=== PATIENT | female | born 1935 | race Caucasian/White ===

== ENCOUNTER 2020-08-13 | Outpatient (REF) | payer MEDICARE, SELFPAY ==
[2020-08-13 10:54] LABS: MANUAL DIFF FLAG NO
[2020-08-13 10:57] LABS: Basophils Percent Auto 0.8 % (0-2); Eosinophils Absolute Auto 0.1 X10*3/uL (0.0-0.4); Eosinophils Percent Auto 2.9 % (0-4); Hematocrit 41.4 % (37-47); Hemoglobin 14.5 g/dl (12.0-16.0); Imm Gran Abs Auto 0.01 X10*3/uL (0.00-0.03); Imm Gran Pct Auto 0.2 % (0.0-0.4); Lymphocytes Absolute Auto 2.1 X10*3/uL (1.2-4.9); Mean Corpuscular Hemoglobin 33.6 pg (27.0-33.0); Mean Corpuscular Volume 95.8 fL (80-98); Monocytes Absolute Auto 0.6 X10*3/uL (0.1-1.2); Monocytes Percent Auto 12.3 % (2-11); Neutrophils Percent Auto 40.8 % (45-73); Platelet Count 168 X10*3/uL (160-400); Red Blood Count 4.32 X10*6/uL (4.20-5.50); Red Cell Distribution Width 11.8 % (11.0-16.0); White Blood Count 4.9 X10*3/uL (4.8-10.8)
[2020-08-13 11:23] LABS: Alanine Aminotransferase 15 U/L (0-31); Albumin Level 4.3 g/dL (3.5-5.0); Alkaline Phosphatase 89 U/L (39-117); Anion Gap 13 (12-20); Aspartate Amino Transferase 24 U/L (5-31); Bilirubin Total 1.4 mg/dL (0.0-1.0); Blood Urea Nitrogen 15 mg/dL (9-16); Carbon Dioxide 24 mmol/L (22-29); Chloride 105 mmol/L (96-108); Cholesterol 179 mg/dL; Estimated Glomerular Filt Rate > 60; Glucose Fasting 92 mg/dL (60-99); HDL Cholesterol 40 mg/dL; LDL Cholesterol Calculated 117 mg/dl; Sodium 138 mmol/L (135-145); Triglycerides 111 mg/dL
[2020-08-13 11:40] LABS: Free T4 (Free Thyroxine) 1.42 ng/dL (0.71-1.85); Thyroid Stimulating Hormone 0.01 uIU/mL (0.32-4.0)
== END 2020-08-13 00:01 | disposition home or self-care (01) ==
LOC: HO.LHD
PROVIDERS: Visit Provider Internal Medicine Medical Oncology
DX: E03.9 Hypothyroidism, unspecified (principal); I10 Essential (primary) hypertension; E78.5 Hyperlipidemia, unspecified
CPT/HCPCS: 36415; 80053; 80061; 84439; 84443; 85025

== ENCOUNTER 2020-09-29 16:48 | Emergency (ER) | payer MEDICARE, SELFPAY ==
[2020-09-29 17:27] VITALS: BP 207/100; PULSE 75; RESP 18; TEMP 37.1; O2SAT 97; BMI 22.6
--- NOTE | 2020-09-29 18:04 | CT_ITS ---
EXAMINATION: CT HEAD WITHOUT IV CONTRAST CT CERVICAL SPINE WITHOUT IV CONTRAST INDICATION: Fall. Pain in the back of the head. COMPARISON: None available. TECHNIQUE: Multidetector CT acquisitions of the head and cervical spine were obtained without IV contrast. Multiplanar reformats were acquired and utilized for image interpretation. This CT examination was performed using dose optimization techniques as appropriate, variously including the following: *Automated exposure control *Adjustment of mA and/or kV according to patient size (this includes techniques or standardized protocols for targeted exams where dose is matched to indication/reason for exam; i.e. extremities or head) *Use of iterative reconstruction technique FINDINGS: HEAD: Global cerebral volume loss and chronic microangiopathy. Global cerebellar volume loss. There is no intracranial hemorrhage, hydrocephalus, extra-axial surface collection, midline shift, or other herniation pattern. 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 Bland to white matter differentiation is diffusely maintained without evidence of an evolved acute territorial infarct. The basilar cisterns are preserved. No acute osseous abnormality. The paranasal sinuses and the mastoid air cells are well aerated. Posterior scalp swelling/hematoma. CERVICAL SPINE: Significant leftward convex scoliotic curvature of the cervical spine. Near-complete fusion of the anterior posterior elements at C3-C4 and anterior subluxation of C4 on C5. No definite acute fractures no acute subluxations. Severe disc volume loss at C4-C5, C5-C6, C6-C7, and C7-T1. There is anterior subluxation of C7 on T1. Advanced multilevel hypertrophic facet arthropathy. Hypertrophic degenerative changes at the atlantodental interval. 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 CT/CT cervical spine wo con IMPRESSION: 1. No acute intracranial abnormality. Posterior scalp hematoma. 2. No acute osseous abnormality within the cervical spine. Advanced cervical spondylosis, leftward convex cervical scoliosis, as well as significant degenerative appearing anterior subluxation of C4 on C5 and C7 on T1. 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
--- NOTE | 2020-09-29 18:06 | ED_ITS ---
HPI - Fall General Chief Complaint: Fall Stated Complaint: fall Time Seen by Provider: 09/29/20 17:25 Source: patient Mode of arrival: ambulatory Limitations: no limitations History of Present Illness HPI Narrative: Patient comes to emergency room after falling. Patient states she was at her house, she was in a ladder taking off the [employer] ornaments, stepped backwards and landed on her back, then her head. Patient states she did not lose consciousness, patient is not on blood thinners. Patient denies neck pain, no lacerations in the scalp. MD complaint: fall Related Data Allergies Allergy/AdvReac Type Severity Reaction Status Date / Time Sulfa (Sulfonamide Allergy Mild NAUSEA & Verified 09/29/20 17:26 Antibiotics) VOMITING Review of Systems Review of Systems: Constitutional : No Weight loss, No Fever, No Chills, No Night Sweats, No Fatigue, No Malaise ENT/Mouth : No Hearing loss, No Ear Pain, No Nasal Congestion, No Sinus Pain, No Hoarseness, No sore throat, No Rhinorrhea, No Swallowing Difficulty Eyes: No Eye Pain, No Swelling, No Redness, No Foreign Body, No Discharge, No Vision Changes Cardiovascular : No Chest Pain, No SOB, No Dyspnea on Exertion, No Orthopnea, No Edema, No Palpitations Respiratory : No Cough, No Sputum, No Wheezing, No Smoke Exposure, No Dyspnea Gastrointestinal : No Nausea, No Vomiting, No Diarrhea, No Constipation, No abdominal Pain, No Hematochezia, No Melena Genitourinary : no irregular bleeding, No Dysuria, No Urinary Frequency, No Hematuria, No Urinary Incontinence, No Urgency, No Flank Pain, No Urinary Flow Changes, No Hesitancy Musculoskeletal : No joint pain, No Myalgias, No Joint Swelling Skin : No Skin Lesions, No rash, ecchymosis in the scalp in the posterior aspect Neuro : No Weakness, No Numbness, No Paresthesias, No Loss of Consciousness, No Dizziness, No Headache Psych : No Anxiety/Panic, No Depression, No SI/HI/AH/VH, No Social Issues, Heme/Lymph: No Bruising, No Bleeding,No Lymphadenopathy Endocrine : No Polyuria, No Polydipsia, No Temperature Intolerance [facility] Past Medical History Medical History (Updated 09/29/20 @ 19:34 by Tania Mclaughlin MD) Hypertension Hypothyroidism Psoriasis Social History Social History Advance Directives: No Advance Directives Information Provided: No Physical Exam Vital Signs: Vital Signs: Last Vital Signs Temp 98.8 F 09/29/20 17:27 Pulse 75 09/29/20 17:27 Resp 18 09/29/20 17:27 BP 207/100 H 09/29/20 17:27 Pulse Ox 97 09/29/20 17:27 Body Mass Index 22.6 Appearance: Alert. Oriented X3. No acute distress. Eyes: Pupils equal, round and reactive to light. ENT: Pharynx normal. Neck: Normal inspection. Neck supple. No lymph nodes noted. No crepitus, no step palpable step-offs, no C-spine tenderness, normal range of motion CVS: Normal heart rate and rhythm. Pulses normal. Normal S1 and S2 Respiratory: No respiratory distress. Breath sounds normal. No Wheezing. No rales Abdomen: Soft and nontender. No rigidity. No distention. good BS x4 Skin: Skin warm and dry. Normal skin color. Small ecchymosis in occipital region, no lacerations, no active bleeding Extremities: No lower extremity edema. No lower extremity edema. No Lacerations. No Rash Neuro: Oriented X 3. No motor deficit. No sensory deficit. Moving all extermities. No slurred speech. Course Course Course Narrative: I discussed the CT scan with the patient, no acute findings. Patient ready for discharge. Patient denies headache, -she has steady gait MDM - Fall Imaging Data CT scan - head: Radiologist's impression: Significant leftward convex scoliotic curvature of the cervical spine. Near-complete fusion of the anterior posterior elements at C3-C4 and anterior subluxation of C4 on C5. No definite acute fractures no acute subluxations. Severe disc volume loss at C4-C5, C5-C6, C6-C7, and C7-T1. There is anterior subluxation of C7 on T1. Advanced multilevel hypertrophic facet arthropathy. Hypertrophic degenerative changes at the atlantodental interval. 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 CT/CT cervical spine wo con IMPRESSION: 1. No acute intracranial abnormality. Posterior scalp hematoma. 2. No acute osseous abnormality within the cervical spine. Advanced cervical spondylosis, leftward convex cervical scoliosis, as well as significant degenerative appearing anterior subluxation of C4 on C5 and C7 on T1. 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 Discharge Plan Discharge Clinical Impression: Fall Qualifiers: Encounter type: initial encounter Qualified Code(s): W19.XXXA - Unspecified fall, initial encounter Contusion Qualifiers: Encounter type: initial encounter Contusion area: head Laterality: unspecified laterality Patient Disposition: Home, Self-Care Instructions: Head Injury (ED) Additional Instructions: Please follow-up with your primary care physician tomorrow. If you have any worsening or new symptoms, please return to the emergency room or call 911
--- NOTE | 2020-09-29 18:32 | PC.NURSE ---
pt back from ct pt remains caox4, in no distress.
--- NOTE | 2020-09-29 18:50 | PC.NURSE ---
valeria [phone] call when ready
[2020-09-29 19:53] VITALS: BP 178/104; PULSE 69; RESP 16; O2SAT 95
== END 2020-09-29 20:20 | disposition home or self-care (01) ==
PROVIDERS: Emergency Provider Emergency Medicine; PCP Internal Medicine Medical Oncology
DX: S00.93XA Contusion of unspecified part of head, initial encounter (principal); W11.XXXA Fall on and from ladder, initial encounter; I10 Essential (primary) hypertension; Y93.89 Activity, other specified; Y92.019 Unspecified place in single-family (private) house as the place of occurrence of the external cause; Y99.9 Unspecified external cause status
CPT/HCPCS: 70450; 72125; 99284

== ENCOUNTER 2020-12-17 07:14 | Outpatient (REF) | payer MEDICARE, SELFPAY ==
[2020-12-17 12:50] LABS: Alanine Aminotransferase 9 U/L (0-31); Albumin Level 4.4 g/dL (3.5-5.0); Alkaline Phosphatase 103 U/L (39-117); Anion Gap 16 (12-20); Aspartate Amino Transferase 18 U/L (5-31); Bilirubin Total 1.5 mg/dL (0.0-1.0); Blood Urea Nitrogen 10 mg/dL (9-16); Calcium 9.1 mg/dL (8.4-10.2); Carbon Dioxide 24 mmol/L (22-29); Chloride 106 mmol/L (96-108); Estimated Glomerular Filt Rate > 60; Glucose Fasting 117 mg/dL (60-99); Potassium 4.2 mmol/L (3.3-5.1); Sodium 142 mmol/L (135-145)
== END 2020-12-17 07:15 | disposition home or self-care (01) ==
LOC: HO.LHD 07:14
PROVIDERS: Visit Provider Internal Medicine Medical Oncology
DX: E78.5 Hyperlipidemia, unspecified (principal); E03.9 Hypothyroidism, unspecified; I10 Essential (primary) hypertension
CPT/HCPCS: 36415; 80053

== ENCOUNTER 2021-03-26 19:38 | Inpatient (IN) | payer MEDICARE, SELFPAY ==
--- NOTE | ~2021-03-26 | US_ITS ---
EXAMINATION: US ABDOMEN LIMITED CLINICAL INFORMATION: gb ?cholecystitis. COMPARISON: None TECHNIQUE: Real-time imaging of the right upper quadrant abdominal viscera. FINDINGS: LIVER: Normal. The liver is normal in size. The liver contour is normal. Parenchymal echogenicity is normal. No focal hepatic lesion. There is no intrahepatic biliary duct dilatation seen. GALLBLADDER: Dependent, echogenic, shadowing stones are present within the gallbladder. A small volume of sludge is present. The gallbladder is physiologically distended without evidence wall thickening or pericholecystic fluid. COMMON BILE DUCT: Normal in caliber measuring 0.6 cm in diameter. FREE FLUID: None. US/US abdomen limited IMPRESSION: Cholelithiasis without evidence of cholecystitis
--- NOTE | ~2021-03-26 | CT_ITS ---
EXAMINATION: CT ABDOMEN AND PELVIS WITHOUT CONTRAST CLINICAL INFORMATION: Left lower quadrant pain. Rule out diverticulitis. COMPARISON: None TECHNIQUE: Multidetector volumetric imaging was performed from the superior aspect of the liver through the pubic symphysis. Sagittal and coronal reformatted images were obtained on the technologist's workstation. This CT examination was performed using dose optimization techniques as appropriate, variously including the following: *Automated exposure control *Adjustment of mA and/or kV according to patient size (this includes techniques or standardized protocols for targeted exams where dose is matched to indication/reason for exam; i.e. extremities or head) *Use of iterative reconstruction technique DLP: 421 mGy-cm FINDINGS: LUNG BASES: There is a large esophageal hernia or intrathoracic stomach. Transverse colon and some of the pancreas also extend through the widened esophageal hiatus. The lung bases are clear. LIVER, GALLBLADDER, AND BILIARY TREE: The liver is normal in size, shape, and attenuation. No focal hepatic lesion or biliary ductal dilatation is present. There are gallstones in the gallbladder. PANCREAS: Unremarkable. SPLEEN: Unremarkable. ADRENAL GLANDS: Unremarkable. KIDNEYS AND URETERS: The kidneys are normal in size, shape, and attenuation. No hydronephrosis, hydroureter, or calculi seen. No perinephric stranding. BLADDER: Unremarkable. GASTROINTESTINAL TRACT: There is diverticulosis of the colon. No evidence of diverticulitis is seen. The appendix is not identified. Large esophageal hernia or intrathoracic stomach. Transverse colon extending through widened esophageal hiatus. No evidence of obstruction. ABDOMINAL WALL: There are small bilateral inguinal hernias containing fat. LYMPH NODES: Normal. VASCULAR: There is evidence of atherosclerotic disease. No aneurysm is seen. PELVIC VISCERA: Unremarkable. OSSEOUS STRUCTURES: There is scoliosis of the lumbar spine convex to the right. There is a mild L1 vertebral body compression fracture versus Schmorl's node. This may be an old mild T11 vertebral body compression fracture as well. There is joint space narrowing at the hip joints. CT/CT abdomen pelvis wo con IMPRESSION: Diverticulosis. No evidence of diverticulitis. Large esophageal hernia or intrathoracic stomach. The pancreas and transverse colon extend through the widened esophageal hiatus. There is no evidence of obstruction. Gallstones.
[2021-03-26 20:19] VITALS: BP 174/82; PULSE 67; RESP 12; TEMP 37; O2SAT 97; BMI 20.9
[2021-03-26 21:38] LABS: MANUAL DIFF FLAG NO
[2021-03-26 21:39] LABS: Basophils Percent Auto 0.5 % (0-2); Eosinophils Percent Auto 0.3 % (0-4); Hematocrit 40.5 % (37-47); Hemoglobin 14.2 g/dl (12.0-16.0); Imm Gran Abs Auto 0.01 X10*3/uL (0.00-0.03); Imm Gran Pct Auto 0.2 % (0.0-0.4); Lymphocytes Absolute Auto 0.8 X10*3/uL (1.2-4.9); Lymphocytes Percent Auto 12.4 % (20-40); Mean Corpuscular HGB Conc 35.1 g/dl (31.0-35.0); Mean Corpuscular Hemoglobin 33.5 pg (27.0-33.0); Mean Corpuscular Volume 95.5 fL (80-98); Mean Platelet Volume 8.3 fL (9.4-12.3); Monocytes Absolute Auto 0.5 X10*3/uL (0.1-1.2); Monocytes Percent Auto 8.3 % (2-11); Neutrophils Absolute Auto 4.9 X10*3/uL (2.0-8.3); Neutrophils Percent Auto 78.3 % (45-73); Platelet Count 160 X10*3/uL (160-400); Red Blood Count 4.24 X10*6/uL (4.20-5.50); Red Cell Distribution Width 12.3 % (11.0-16.0); White Blood Count 6.3 X10*3/uL (4.8-10.8)
[2021-03-26 21:52] VITALS: BP 132/67; PULSE 78; RESP 16; TEMP 36.7; O2SAT 98
--- NOTE | 2021-03-26 22:01 | ED.ABDPAIN ---
HPI - Abdominal Pain General Chief Complaint: Abdominal Pain Stated Complaint: Abdominal pain Time Seen by Provider: 03/26/21 22:00 Source: patient and family Mode of arrival: ambulatory History of Present Illness HPI narrative: patient brought by her son with no significant abdominal pain in the past came here for lower abdominal pain for last 2 days started yesterday evening got worse today now she denies any pain slight nauseated did not throw up now feel back to normal slight discomfort when she urinates no hematuria no back pain no fever no chills no abdominal distension Related Data Allergies Allergy/AdvReac Type Severity Reaction Status Date / Time Sulfa (Sulfonamide Allergy Mild NAUSEA & Verified 09/29/20 17:26 Antibiotics) VOMITING Review of Systems Review of Systems Yes all other systems are reviewed and are negative Physical Exam Vital Signs: Vital Signs: Last Vital Signs Temp 98.0 F 03/26/21 21:52 Pulse 66 03/27/21 00:15 Resp 18 03/27/21 00:15 BP 142/72 H 03/27/21 00:15 Pulse Ox 96 03/27/21 00:15 Body Mass Index 20.9 Appearance: Alert. Oriented X3. No acute distress. thin built patient Eyes: PERRLA, No Nystagmus ENT: Pharynx normal. Oral Mucosa moist Neck: Normal inspection. Neck supple. CVS: Normal heart rate and rhythm. Pulses normal. Respiratory: No respiratory distress. Equal air entry bilateral, no wheezing/rales/rhonchi Abdomen: Soft , mild deep tenderness left lower quadrant no rebound tenderness or guarding no right upper quadrant tenderness, Bowel sounds are present, no mass palpable, no CVA tenderness Skin: Skin warm and dry. Normal skin color. Normal skin turgor. Extremities: No lower extremity edema. No calf tenderness Neuro: Oriented X 3. No motor deficit. No sensory deficit. MDM - Abdominal Pain MDM Narrative Medical decision making narrative: patient with left lower quadrant pain workup showed diverticulosis but no diverticulitis denies any right upper quadrant pain also on examination there is no tenderness in the right upper quadrant patient has UTI in the urine labs showed elevated LFTs etiology is not very clear ultrasound is negative for cholecystitis or CBD stone plan is to admit for elevated liver function test will get hepatitis profile check Tylenol level patient denied use of Tylenol Lab Data Attestation: I reviewed the patient's lab results. Result diagrams: 03/26/21 21:34 03/26/21 21:34 Labs: Lab Results 03/26/21 03/26/21 03/26/21 Range/Units 21:34 21:34 23:30 WBC 6.3 (4.8-10.8) X10*3/uL RBC 4.24 (4.20-5.50) X10*6/uL Hgb 14.2 (12.0-16.0) g/dl Hct 40.5 (37-47) % MCV 95.5 (80-98) fL MCH 33.5 H (27.0-33.0) pg MCHC 35.1 H (31.0-35.0) g/dl RDW 12.3 (11.0-16.0) % Plt Count 160 (160-400) X10*3/uL MPV 8.3 L (9.4-12.3) fL Immature Gran % (Auto) 0.2 (0.0-0.4) % Neut % (Auto) 78.3 H (45-73) % Lymph % (Auto) 12.4 L (20-40) % [place] % (Auto) 8.3 (2-11) % Eos % (Auto) 0.3 (0-4) % Baso % (Auto) 0.5 (0-2) % Lymph # (Auto) 0.8 L (1.2-4.9) X10*3/uL [place] # (Auto) 0.5 (0.1-1.2) X10*3/uL Eos # (Auto) 0.0 (0.0-0.4) X10*3/uL Baso # (Auto) 0.0 (0.0-0.2) X10*3/uL Abs Immat Gran (auto) 0.01 (0.00-0.03) X10*3/uL Absolute Neuts (auto) 4.9 (2.0-8.3) X10*3/uL Absolute Nucleated RBC 0.000 (0.0-0.012) X10*3/uL Nucleated RBC % (auto) 0.0 (0.0-0.2) /100WBC Sodium 140 (135-145) mmol/L Potassium 4.1 (3.3-5.1) mmol/L Chloride 108 (96-108) mmol/L Carbon Dioxide 21 L (22-29) mmol/L Anion Gap 15 (12-20) BUN 14 (9-16) mg/dL Creatinine 0.88 (0.5-1.4) mg/dL Estim Creat Clear Calc 37.6 Estimated GFR > 60 Random Glucose 156 H (60-115) mg/dL Calcium 9.2 (8.4-10.2) mg/dL Total Bilirubin 2.8 H (0.0-1.0) mg/dL AST 405 H (5-31) U/L ALT 130 H (0-31) U/L Alkaline Phosphatase 154 H D (39-117) U/L Total Protein 6.9 (6.5-8.0) g/dL Albumin 4.1 (3.5-5.0) g/dL Lipase 27 (8-78) U/L Urine Color DARK YELLOW Urine Appearance HAZY Urine pH 7.0 (5.0-8.0) Ur Specific [place] 1.020 (1.005-1.025) Urine Protein TRACE (NEG-TRACE) MG/DL Urine Glucose (UA) NEG (NEG) MG/DL Urine Ketones NEG (NEG) MG/DL Urine Blood TRACE (NEG) Urine Nitrite NEG (NEG) Ur Leukocyte Esterase 3+ H (NEG) Urine RBC 1-4 (0) /HPF Urine WBC 50-75 H (0-4) /HPF Ur Squamous Epith Cells TRACE /LPF Urine Bacteria 3+ /LPF PMFSH Past Medical History Medical History Hypertension Hypothyroidism Psoriasis Social History Social History Alcohol intake: never Patient Tobacco Use Status: Never used Tobacco Use of substances other than those prescribed or required for medical reasons: No Advance Directives: No Advance Directives Information Provided: Yes
[2021-03-26 22:14] LABS: Alanine Aminotransferase 130 U/L (0-31); Albumin Level 4.1 g/dL (3.5-5.0); Alkaline Phosphatase 154 U/L (39-117); Anion Gap 15 (12-20); Aspartate Amino Transferase 405 U/L (5-31); Bilirubin Total 2.8 mg/dL (0.0-1.0); Blood Urea Nitrogen 14 mg/dL (9-16); Calcium 9.2 mg/dL (8.4-10.2); Carbon Dioxide 21 mmol/L (22-29); Chloride 108 mmol/L (96-108); Creatinine Clr Calc Pharmacy 37.6; Estimated Glomerular Filt Rate > 60; Glucose Random 156 mg/dL (60-115); Potassium 4.1 mmol/L (3.3-5.1); Sodium 140 mmol/L (135-145); Total Protein 6.9 g/dL (6.5-8.0)
[2021-03-26 22:54] LABS: Lipase 27 U/L (8-78)
[2021-03-26 23:37] LABS: Glucose Urine UA NEG (NEG); Leukocyte Esterase Urine 3+ (NEG); Nitrite Urine NEG (NEG); UACC Culture Trigger YES; Urine Blood TRACE (NEG); Urine Ketones NEG (NEG); Urine Protein TRACE MG/DL (NEG-TRACE)
[2021-03-26 23:41] LABS: Appearance Urine HAZY; Color Urine DARK YELLOW
[2021-03-26 23:55] LABS: Bacteria Urine 3+ /LPF; Squamous Epithelial Cell Urine TRACE /LPF; WBC Urine 50-75 /HPF (0-4)
[2021-03-27] VITALS (9 sets, daily range): BP systolic 118–193; BP diastolic 57–96; PULSE 62–80; RESP 17–19; TEMP 36.3–36.8; O2SAT 92–97
[2021-03-27] MEDS: Heparin Sodium,Porcine 5,000 UNIT/ML VIAL 5000 UNIT SUBCUT ×3 (00:41→20:38)
[2021-03-27] MEDS: cefTRIAXone sodium 1 GM in 0.9 % Sodium Chloride 50 ML IV ×2 (00:41→20:49)
[2021-03-27] MEDS: Lactated Ringers 1,000 ML 100 ML IVCONT ×2 (00:44→09:16)
[2021-03-27 00:49] LABS: INTERNATIONAL NORM RATIO 1.1 (0.9-1.1); Prothrombin Time 13.3 SEC (10.8-13.0)
[2021-03-27 00:53] LABS: Ammonia 30 umol/L (13-55)
[2021-03-27 00:57] LABS: Lactic Acid 1.2 mmol/L (0.5-2.0)
[2021-03-27 00:57] LABS: COVID-19 Test Negative (Negative)
[2021-03-27 01:05] LABS: Acetaminophen LAB < 1 mcg/mL (<30); Salicylate < 5.0 mg/dL (15-30)
[2021-03-27 04:13] LABS: HBS Num1 1.56 mIU/mL (0-7.99); HBsAGNum1 0.19 S/CO (0.00-0.99); Hepatitis B Core Antibody Nonreactive (Nonreactive); Hepatitis B Surface Antigen Negative (Negative); ~Hepatitis B Surface Antibody NONREACTIVE (Nonreactive)
[2021-03-27 04:34] LABS: ~HepC Num1 0.07 S/CO (0.00-0.79); ~Hepatitis C Antibody Nonreactive (Nonreactive)
--- NOTE | 2021-03-27 06:23 | PM.IMHP ---
History of Present Illness Date of Service: 03/27/21 Chief Complaint: abdominal pain this is an 85-year-old female who has a past medical history of hypertension and hypothyroidism presents to the hospital brought in by her son with complaints of abdominal pain. Although patient is alert and oriented to self and place she is not a good history and possibly due to her decrease evening. I spoke to the son who reports that patient was complaining of severe abdominal pain, patient reports the pain is mostly localized to the left abdomen, nonradiating, she has some nausea with no vomiting. Although her son says that she vomited the day prior, denies any diarrhea, this son reports that the patient was with her sister the day prior and they went out to eat, this sister was also admitted earlier in the evening for bacteremia colitis. patient otherwise has no chest pain, no urinary symptoms, no lower extremity edema, no numbness tingling or weakness. No headache or change in vision. On arrival to the ED patient hemodynamically stable with a temp of 98.8?, heart rate of 75, respiratory rate of 18, blood pressure of 207/100, satting 97% on room air labs on arrival are significant for WBC count of 6.3, PT of 13.3, lactic acid of 1.2, total bili of 2.8, was 1.5 in November, AST of 405, ALT of 130, alk-phos of 154 all were normal prior tests, urine that is positive for leukocyte Estrace and WBC, negative salicylate level as well as light of Tylenol. Hepatitis B and C nonreactive. Patient denies taking any NSAIDs. abdominal CT shows diverticulosis with no evidence of diverticulitis. Large esophageal hernia, pancreas and transverse colon extend through the widened esophageal hiatus. No evidence of obstruction abdominal ultrasound showed cholelithiasis without evidence of cholecystitis Given her elevated LFTs patient will be admitted for further evaluation Review of Systems Review of Systems: Yes all other systems are reviewed and are negative [facility] Medical History Hypertension Hypothyroidism Psoriasis Social History Household Members: None Housing: Apartment Do you presently have visiting nurse or other home services: Yes Alcohol intake: never Patient Tobacco Use Status: Never used Tobacco Use of substances other than those prescribed or required for medical reasons: No Have you been hit, kicked, punched, or otherwise hurt by someone within the past year? If so, by whom?: No Do you feel safe in your current relationship?: No Current Relationship Is there a partner from a previous relationship who is making you feel unsafe now?: No Are you made to feel afraid or neglected: No Advance Directives: No Advance Directives Information Provided: Yes Do you have thoughts of harming others: None Do you have a plan to hurt others: No Plan Recently lost weight without trying: No Nutrition Risks: No Nutritional Risk Meds Allergies Allergy/AdvReac Type Severity Reaction Status Date / Time Sulfa (Sulfonamide Allergy Mild NAUSEA & Verified 09/29/20 17:26 Antibiotics) VOMITING Active Medications: Current Medications Generic Name Dose Route Start Last Admin Trade Name Freq PRN Reason Stop Dose Admin Docusate Sodium 100 mg 03/27/21 00:15 Docusate Sodium 100 Mg Capsule PO DAILY PRN Constipation Heparin Sodium (Porcine) 5,000 unit 03/27/21 00:15 03/27/21 00:41 Heparin Sodium,Porcine 5,000 Unit/Ml Vial SUBCUT 5,000 unit BID KATARINA Administration Lactated Ringer's 1,000 mls @ 100 mls/hr 03/27/21 00:15 03/27/21 02:38 Lr IVCONT 100 mls/hr .Q10H KATARINA Infusion Ondansetron HCl 4 mg 03/27/21 00:15 Ondansetron Hcl 4 Mg/2 Ml Vial IVPUSH Q8H PRN Nausea and Vomiting Sodium Chloride 3 ml 03/27/21 08:00 0.9 % Sodium Chloride Flush 3 Ml Syringe IVFLUSH QSHIFT [facility] Physical Exam Vital Signs and Narrative: Vital Signs: Last Vital Signs Temp 98.3 F 03/27/21 04:00 Pulse 66 03/27/21 04:00 Resp 18 03/27/21 04:00 BP 190/96 H 03/27/21 04:00 Pulse Ox 92 03/27/21 04:00 Body Mass Index 20.9 Const: General: cooperative and no acute distress Orientation/consciousness: patient oriented x3 Eyes: General: appearance normal, both eyes and all related structures Pupils: Equal, round and reactive pupils present Resp: Effort & Inspection: normal respiratory effort and able to speak in complete sentences Cardio: Rate: regular rate Rhythm: regular rhythm GI: Other: no rebound, no guarding Palpation (GI): Soft to palpation Auscultation: normal bowel sounds Skin: General skin exam: no rashes or lesions noted Neuro: General: patient oriented x3 Cranial nerves: Yes Equal, round and reactive pupils present Cognition (Neuro): normal cognition Extrem: General: Yes normal to inspection and Yes no pedal edema Results Labs CBC and Chem 7: 03/26/21 21:34 03/26/21 21:34 Labs: Laboratory Results - last 24 hr 03/26/21 03/26/21 03/26/21 21:34 21:34 21:34 MCV 95.5 MCH 33.5 H MCHC 35.1 H RDW 12.3 Plt Count 160 MPV 8.3 L Immature Gran % (Auto) 0.2 Neut % (Auto) 78.3 H Lymph % (Auto) 12.4 L [place] % (Auto) 8.3 Eos % (Auto) 0.3 Baso % (Auto) 0.5 Lymph # (Auto) 0.8 L [place] # (Auto) 0.5 Eos # (Auto) 0.0 Baso # (Auto) 0.0 Abs Immat Gran (auto) 0.01 Absolute Neuts (auto) 4.9 Absolute Nucleated RBC 0.000 Nucleated RBC % (auto) 0.0 PT INR Anion Gap 15 Estim Creat Clear Calc 37.6 Estimated GFR > 60 Random Glucose 156 H Lactic Acid Calcium 9.2 Total Bilirubin 2.8 H AST 405 H ALT 130 H Alkaline Phosphatase 154 H D Ammonia Total Protein 6.9 Albumin 4.1 Lipase 27 Urine Color Urine Appearance Urine pH Ur Specific [place] Urine Protein Urine Glucose (UA) Urine Ketones Urine Blood Urine Nitrite Ur Leukocyte Esterase Urine RBC Urine WBC Ur Squamous Epith Cells Urine Bacteria Salicylates < 5.0 L Acetaminophen < 1 COVID-19 (VERONICA) COVID-19 Clin Com Hep Bs Antigen Negative Hep Bs Antibody NONREACTIVE Hep B Core Total Ab Nonreactive Hepatitis C Ab (EIA) Nonreactive 03/26/21 03/27/21 03/27/21 23:30 00:23 00:23 MCV MCH MCHC RDW Plt Count MPV Immature Gran % (Auto) Neut % (Auto) Lymph % (Auto) [place] % (Auto) Eos % (Auto) Baso % (Auto) Lymph # (Auto) [place] # (Auto) Eos # (Auto) Baso # (Auto) Abs Immat Gran (auto) Absolute Neuts (auto) Absolute Nucleated RBC Nucleated RBC % (auto) PT INR Anion Gap Estim Creat Clear Calc Estimated GFR Random Glucose Lactic Acid Calcium Total Bilirubin AST ALT Alkaline Phosphatase Ammonia 30 Total Protein Albumin Lipase Urine Color DARK YELLOW Urine Appearance HAZY Urine pH 7.0 Ur Specific [place] 1.020 Urine Protein TRACE Urine Glucose (UA) NEG Urine Ketones NEG Urine Blood TRACE Urine Nitrite NEG Ur Leukocyte Esterase 3+ H Urine RBC 1-4 Urine WBC 50-75 H Ur Squamous Epith Cells TRACE Urine Bacteria 3+ Salicylates Acetaminophen COVID-19 (VERONICA) COVID-19 Clin Com Hep Bs Antigen Cancelled Hep Bs Antibody Cancelled Hep B Core Total Ab Cancelled Hepatitis C Ab (EIA) Cancelled 03/27/21 03/27/21 03/27/21 00:23 00:23 00:23 MCV MCH MCHC RDW Plt Count MPV Immature Gran % (Auto) Neut % (Auto) Lymph % (Auto) [place] % (Auto) Eos % (Auto) Baso % (Auto) Lymph # (Auto) [place] # (Auto) Eos # (Auto) Baso # (Auto) Abs Immat Gran (auto) Absolute Neuts (auto) Absolute Nucleated RBC Nucleated RBC % (auto) PT 13.3 H INR 1.1 Anion Gap Estim Creat Clear Calc Estimated GFR Random Glucose Lactic Acid 1.2 Calcium Total Bilirubin AST ALT Alkaline Phosphatase Ammonia Total Protein Albumin Lipase Urine Color Urine Appearance Urine pH Ur Specific [place] Urine Protein Urine Glucose (UA) Urine Ketones Urine Blood Urine Nitrite Ur Leukocyte Esterase Urine RBC Urine WBC Ur Squamous Epith Cells Urine Bacteria Salicylates Cancelled Acetaminophen Cancelled COVID-19 (VERONICA) COVID-19 Clin Com Hep Bs Antigen Hep Bs Antibody Hep B Core Total Ab Hepatitis C Ab (EIA) 03/27/21 00:25 MCV MCH MCHC RDW Plt Count MPV Immature Gran % (Auto) Neut % (Auto) Lymph % (Auto) [place] % (Auto) Eos % (Auto) Baso % (Auto) Lymph # (Auto) [place] # (Auto) Eos # (Auto) Baso # (Auto) Abs Immat Gran (auto) Absolute Neuts (auto) Absolute Nucleated RBC Nucleated RBC % (auto) PT INR Anion Gap Estim Creat Clear Calc Estimated GFR Random Glucose Lactic Acid Calcium Total Bilirubin AST ALT Alkaline Phosphatase Ammonia Total Protein Albumin Lipase Urine Color Urine Appearance Urine pH Ur Specific [place] Urine Protein Urine Glucose (UA) Urine Ketones Urine Blood Urine Nitrite Ur Leukocyte Esterase Urine RBC Urine WBC Ur Squamous Epith Cells Urine Bacteria Salicylates Acetaminophen COVID-19 (VERONICA) Negative COVID-19 Clin Com See Note Hep Bs Antigen Hep Bs Antibody Hep B Core Total Ab Hepatitis C Ab (EIA) Imaging Radiologist's Impressions: Impressions Abdomen/Pelvis CT 03/26/21 22:01 IMPRESSION: Diverticulosis. No evidence of diverticulitis. Large esophageal hernia or intrathoracic stomach. The pancreas and transverse colon extend through the widened esophageal hiatus. There is no evidence of obstruction. Gallstones. Abdomen Ultrasound 03/26/21 22:37 IMPRESSION: Cholelithiasis without evidence of cholecystitis Assessment and Plan (1) Acute hepatitis: Status: Acute (2) Cholelithiasis: Qualifiers: Biliary obstruction: without biliary obstruction Cholecystitis presence: without cholecystitis Cholelithiasis location: gallbladder Qualified Code(s): K80.20 - Calculus of gallbladder without cholecystitis without obstruction Status: Acute (3) Acute UTI: Status: Acute (4) Abdominal pain: Status: Acute 85-year-old female past medical history of hypothyroidism presents to the hospital with complaints of abdominal pain found to have elevated LFTs # transaminitis - unclear etiology at this time - has cholelithiasis on ultrasound of the abdomen with no no significant abnormality except for a large hiatal hernia versus intrathoracic stomach on CT of the abdomen - patient hemodynamically stable - salicylate and acetaminophen levels negative - hepatitis B and C negative, pending hepatitis A - at this time will admit patient, follow LFTs, consult GI for possible HIDA scan # abdominal pain - reports it is in the left quadrant, does not have any right upper quadrant pain - no evidence of diverticulitis and abdominal CT or any other etiology for the pain - possibly secondary to viral gastroenteritis - supportive measures # UTI - will start pt on abx - follow cultures # HTN - Elevated - home meds are not reviewed - will give one dose of hydralazine - resume home medications once reviewed DVT ppx: heparin subq Quality Stroke Does the patient have a stroke diagnosis?: No VTE Prior VTE?: No VTE Risk Level:: Medical - moderate - high VTE Device Contraindication: Treatment Not Indicated VTE Drug Contraindication: N/A - Med Ordered
[2021-03-27] MEDS: hydrALAZINE HCl 20 MG/ML VIAL 5 MG IVPUSH (06:37)
[2021-03-27 07:07] LABS: Alanine Aminotransferase 188 U/L (0-31); Albumin Level 3.8 g/dL (3.5-5.0); Alkaline Phosphatase 159 U/L (39-117); Aspartate Amino Transferase 317 U/L (5-31); Bilirubin Direct 0.6 mg/dL (0.0-0.5); Bilirubin Total 1.7 mg/dL (0.0-1.0); Total Protein 6.2 g/dL (6.5-8.0)
--- NOTE | 2021-03-27 07:25 | PHA.MEDREC ---
Pharmacy Consult ? Medication Reconciliation Pharmacy has completed the medication reconciliation. There are no remarkable issue for provider's attention. Patient unsure of medications. She could only recall levothyroxine. Per claim history she has been on buspirone for a while and it was recently filled. Evelyn Menendez, PharmD
[2021-03-27 08:21] LABS: Hepatitis A Antibody IgG Nonreactive (Nonreactive); Hepatitis A Antibody IgM 0.38 Index (0-0.79); ~Hepatitis A Antibody IgG 0.65 S/CO (0.00-0.99); ~Hepatitis A Antibody IgM Nonreactive (Nonreactive)
--- NOTE | 2021-03-27 09:04 | MHC.CM.PN ---
Addendum entered by Nai Saenz RN 03/27/21 12:31: CM CONTACTED PT'S SON MARIAH AT 12:25PM [phone], PT'S SON REPORTS PT LIVES IN INDEPENDENT LIVING AT [facility] AND REPORTS PT NADEGE LIKE REFERRAL THERE FOR STR IF NEEDED, SON REPORTS PT IS VERY FORGETFUL AND HE HAD TO TAKE HER CAR KEYS AWAY DUE TO PT BEING UNABLE TO EXPLAIN HOW DENTS HAPPENED. PT'S SON UNAWARE IF PT HAS A HCP, SON REPORTS PT'S PCP IS TESSA TOTH AND USES [facility] ON [address]. Original Note: IMM 03/27/2021, EMR REVIEWED, PT ADMITTED W/TRANSAMINITIS, CM MET W/PT WHO IS ALERT & ORIENTED HOWEVER HAS MEMORY ISSUES AND UNABLE TO RECALL SOME INFORMATION, PT GAVE VERBAL PERMISSION TO CALL SON HOWEVER REPORTS HE IS BUSY AT WORK AND ASKED THIS RN TO WAIT UNTIL NOON, PT REPORTS SHE LIVES [place], USES A WALKER AND NO OTHER DME, PT REPORTS SHE HAS HOME HEALTH SERVICES THROUGH [facility] AND HAS SOMEONE WHO COMES IN TWICE [place] TO [place] PT AND THEN TWICE [place] FOR CLEANING/SHOPPING. PT UNABLE TO RECALL PCP'S NAME AND UNSURE IF SHE HAS A HCP, CM WILL FOLLOW-UP W/PT'S SON MARIAH TO VERIFY. D/C PLAN: HOME W/[facility] VS [facility], FAMILY FOR TRANSPORT SON: MARIAH CHAMORRO [phone]
[2021-03-27] MEDS: Levothyroxine Sodium 112 MCG TABLET PO (09:15)
[2021-03-27] MEDS: busPIRone HCl 10 MG TABLET PO ×2 (09:15→20:38)
[2021-03-27] MEDS: ondansetron HCL 4 MG/2 ML VIAL IVPUSH (09:17)
[2021-03-27] MEDS: amLODIPine Besylate 2.5 MG TABLET PO (10:11)
[2021-03-27] MEDS: Docusate Sodium 100 MG CAPSULE PO (10:20)
--- NOTE | 2021-03-27 11:50 | PC.NURSE ---
Skin assessment completed today. Patient has bilateral light redness to buttocks (Stage 1)- EPC cream applied. No other skin issues were found. Skin dry and intact.
--- NOTE | 2021-03-27 12:47 | MHC.CM.PN ---
CM ATTEMPTED TO CONTACT LAUREN REYES SCHEDULER MAINTENANCE AT 12:45PM [phone] REQUESTING SHE LOOK UP PT'S HCP, NO ANSWER, CM CONTACT INFO PROVIDED.
--- NOTE | 2021-03-27 14:22 | P.PNIM_ITS ---
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 Neck supple no JVD. CVS regular rate rhythm, Respiratory lungs clear to auscultation, no respiratory distress, no wheeze, no rhonchi. Gastrointestinal abdomen soft, no ruq tenderness, mild mid abdominal tenderness with palpation, bowel sounds audible, no guarding , no rigidity. Extremities no edema. Neuro nonfocal patient moving all 4 extremity, speech clear. Skin no rash Objective Data Current Medications Generic Name Dose Route Start Last Admin Trade Name Freq PRN Reason Stop Dose Admin Amlodipine Besylate 2.5 mg 03/27/21 10:00 03/27/21 10:11 Amlodipine Besylate 2.5 Mg Tablet PO 2.5 mg DAILY KATARINA Administration Protocol Buspirone HCl 10 mg 03/27/21 09:00 03/27/21 09:15 Buspirone Hcl 10 Mg Tablet PO 10 mg BID KATARINA Administration Docusate Sodium 100 mg 03/27/21 00:15 03/27/21 10:20 Docusate Sodium 100 Mg Capsule PO 100 mg DAILY PRN Administration Constipation Heparin Sodium (Porcine) 5,000 unit 03/27/21 00:15 03/27/21 09:15 Heparin Sodium,Porcine 5,000 Unit/Ml Vial SUBCUT 5,000 unit BID KATARINA Administration Lactated Ringer's 1,000 mls @ 50 mls/hr 03/27/21 00:15 03/27/21 09:31 Lr IVCONT 50 mls/hr .Q20H KATARINA Infusion Ceftriaxone Sodium 1 gm/ 50 mls @ 100 mls/hr 03/27/21 22:00 Sodium Chloride IV Q24H KATARINA Levothyroxine Sodium 112 mcg 03/27/21 08:00 03/27/21 09:15 Levothyroxine Sodium 112 Mcg Tablet PO 112 mcg DAILY@0630 [facility] Administration Morphine Sulfate 2 mg 03/27/21 09:36 Morphine Sulfate 2 Mg/Ml Cartridge IVPUSH Q4H PRN Pain, Moderate (Pain Scale 4-6 Ondansetron HCl 4 mg 03/27/21 00:15 03/27/21 09:17 Ondansetron Hcl 4 Mg/2 Ml Vial IVPUSH 4 mg Q8H PRN Administration Nausea and Vomiting Pharmacy Consult 1 each 03/27/21 07:26 Consult Rx Perform Med Rec MISCELLANE ONCE PRN Consult order Sodium Chloride 3 ml 03/27/21 08:00 03/27/21 09:22 0.9 % Sodium Chloride Flush 3 Ml Syringe IVFLUSH Not Given QSHIFT [facility] Labs CBC & Chem 7: 03/26/21 21:34 03/26/21 21:34 Labs: Laboratory Results - last 24 hr 03/26/21 03/26/21 03/26/21 21:34 21:34 21:34 WBC 6.3 RBC 4.24 Hgb 14.2 Hct 40.5 MCV 95.5 MCH 33.5 H MCHC 35.1 H RDW 12.3 Plt Count 160 MPV 8.3 L Immature Gran % (Auto) 0.2 Neut % (Auto) 78.3 H Lymph % (Auto) 12.4 L [place] % (Auto) 8.3 Eos % (Auto) 0.3 Baso % (Auto) 0.5 Lymph # (Auto) 0.8 L [place] # (Auto) 0.5 Eos # (Auto) 0.0 Baso # (Auto) 0.0 Abs Immat Gran (auto) 0.01 Absolute Neuts (auto) 4.9 Absolute Nucleated RBC 0.000 Nucleated RBC % (auto) 0.0 PT INR Sodium 140 Potassium 4.1 Chloride 108 Carbon Dioxide 21 L Anion Gap 15 BUN 14 Creatinine 0.88 Estim Creat Clear Calc 37.6 Estimated GFR > 60 Random Glucose 156 H Lactic Acid Calcium 9.2 Total Bilirubin 2.8 H Direct Bilirubin AST 405 H ALT 130 H Alkaline Phosphatase 154 H D Ammonia Total Protein 6.9 Albumin 4.1 Lipase 27 Urine Color Urine Appearance Urine pH Ur Specific [place] Urine Protein Urine Glucose (UA) Urine Ketones Urine Blood Urine Nitrite Ur Leukocyte Esterase Urine RBC Urine WBC Ur Squamous Epith Cells Urine Bacteria Salicylates < 5.0 L Acetaminophen < 1 COVID-19 (VERONICA) COVID-19 Clin Com Hepatitis A IgG Ab Hepatitis A IgM Ab Hep Bs Antigen Negative Hep Bs Antibody NONREACTIVE Hep B Core Total Ab Nonreactive Hepatitis C Ab (EIA) Nonreactive 03/26/21 03/26/21 03/27/21 21:34 23:30 00:23 WBC RBC Hgb Hct MCV MCH MCHC RDW Plt Count MPV Immature Gran % (Auto) Neut % (Auto) Lymph % (Auto) [place] % (Auto) Eos % (Auto) Baso % (Auto) Lymph # (Auto) [place] # (Auto) Eos # (Auto) Baso # (Auto) Abs Immat Gran (auto) Absolute Neuts (auto) Absolute Nucleated RBC Nucleated RBC % (auto) PT INR Sodium Potassium Chloride Carbon Dioxide Anion Gap BUN Creatinine Estim Creat Clear Calc Estimated GFR Random Glucose Lactic Acid Calcium Total Bilirubin Direct Bilirubin AST ALT Alkaline Phosphatase Ammonia 30 Total Protein Albumin Lipase Urine Color DARK YELLOW Urine Appearance HAZY Urine pH 7.0 Ur Specific [place] 1.020 Urine Protein TRACE Urine Glucose (UA) NEG Urine Ketones NEG Urine Blood TRACE Urine Nitrite NEG Ur Leukocyte Esterase 3+ H Urine RBC 1-4 Urine WBC 50-75 H Ur Squamous Epith Cells TRACE Urine Bacteria 3+ Salicylates Acetaminophen COVID-19 (VERONICA) COVID-19 Clin Com Hepatitis A IgG Ab Nonreactive Hepatitis A IgM Ab Nonreactive Hep Bs Antigen Hep Bs Antibody Hep B Core Total Ab Hepatitis C Ab (EIA) 03/27/21 03/27/21 03/27/21 00:23 00:23 00:23 WBC RBC Hgb Hct MCV MCH MCHC RDW Plt Count MPV Immature Gran % (Auto) Neut % (Auto) Lymph % (Auto) [place] % (Auto) Eos % (Auto) Baso % (Auto) Lymph # (Auto) [place] # (Auto) Eos # (Auto) Baso # (Auto) Abs Immat Gran (auto) Absolute Neuts (auto) Absolute Nucleated RBC Nucleated RBC % (auto) PT 13.3 H INR 1.1 Sodium Potassium Chloride Carbon Dioxide Anion Gap BUN Creatinine Estim Creat Clear Calc Estimated GFR Random Glucose Lactic Acid Calcium Total Bilirubin Direct Bilirubin AST ALT Alkaline Phosphatase Ammonia Total Protein Albumin Lipase Urine Color Urine Appearance Urine pH Ur Specific [place] Urine Protein Urine Glucose (UA) Urine Ketones Urine Blood Urine Nitrite Ur Leukocyte Esterase Urine RBC Urine WBC Ur Squamous Epith Cells Urine Bacteria Salicylates Cancelled Acetaminophen Cancelled COVID-19 (VERONICA) COVID-19 Clin Com Hepatitis A IgG Ab Hepatitis A IgM Ab Hep Bs Antigen Cancelled Hep Bs Antibody Cancelled Hep B Core Total Ab Cancelled Hepatitis C Ab (EIA) Cancelled 03/27/21 03/27/21 03/27/21 00:23 00:25 05:40 WBC RBC Hgb Hct MCV MCH MCHC RDW Plt Count MPV Immature Gran % (Auto) Neut % (Auto) Lymph % (Auto) [place] % (Auto) Eos % (Auto) Baso % (Auto) Lymph # (Auto) [place] # (Auto) Eos # (Auto) Baso # (Auto) Abs Immat Gran (auto) Absolute Neuts (auto) Absolute Nucleated RBC Nucleated RBC % (auto) PT INR Sodium Potassium Chloride Carbon Dioxide Anion Gap BUN Creatinine Estim Creat Clear Calc Estimated GFR Random Glucose Lactic Acid 1.2 Calcium Total Bilirubin 1.7 H Direct Bilirubin 0.6 H AST 317 H ALT 188 H Alkaline Phosphatase 159 H Ammonia Total Protein 6.2 L Albumin 3.8 Lipase Urine Color Urine Appearance Urine pH Ur Specific [place] Urine Protein Urine Glucose (UA) Urine Ketones Urine Blood Urine Nitrite Ur Leukocyte Esterase Urine RBC Urine WBC Ur Squamous Epith Cells Urine Bacteria Salicylates Acetaminophen COVID-19 (VERONICA) Negative COVID-19 Clin Com See Note Hepatitis A IgG Ab Hepatitis A IgM Ab Hep Bs Antigen Hep Bs Antibody Hep B Core Total Ab Hepatitis C Ab (EIA) Quality Stroke Does the patient have a stroke diagnosis?: No VTE Prior VTE?: No VTE Risk Level:: Medical - moderate - high VTE Device Contraindication: Treatment Not Indicated VTE Drug Contraindication: N/A - Med Ordered Assessment and Plan (1) Abdominal pain: Status: Acute (2) Cholelithiasis: Status: Acute (3) Acute UTI: Status: Acute (4) Elevated LFTs: Status: Acute Assessment and Plan: 85-year-old female past medical history of hypothyroidism presents to the hospital with complaints of abdominal pain found to have elevated LFTs # Elevated lfts / abdominal pain - unclear etiology , abdominal ultrasound showed cholelithiasis without evidence of cholecystitis, CT abdomen showed diverticulosis and large esophageal hernia with intrathoracic stomach, no evidence of obstructionon salicylate and acetaminophen levels negative hepatitis B and C negative, pending hepatitis A LFTs trending down, ALT and alk-phos remains elevated, follow labs at a.m. clinically patient stable tolerating diet abdominal pain resolved likely was secondary significant esophageal hernia, since tolerating diet will DC IV fluid # UTI - continue IV ceftriaxone follow urine culture # HTN - Elevated blood pressure not on home medication, will start patient on Norvasc 2.5 mg daily # hypothyroidism continue levothyroxine DVT ppx: heparin subq
[2021-03-27] MEDS: 0.9 % Sodium Chloride Flush 3 ML SYRINGE IVFLUSH (22:00)
[2021-03-28] VITALS (7 sets, daily range): BP systolic 123–188; BP diastolic 66–85; PULSE 81–100; RESP 16–18; TEMP 36.2–36.8; O2SAT 94–97
[2021-03-28] MEDS: Levothyroxine Sodium 112 MCG TABLET PO (05:19)
[2021-03-28 06:44] LABS: MANUAL DIFF FLAG NO
[2021-03-28 06:53] LABS: Basophils Percent Auto 0.4 % (0-2); Eosinophils Absolute Auto 0.1 X10*3/uL (0.0-0.4); Eosinophils Percent Auto 2.9 % (0-4); Hematocrit 39.4 % (37-47); Hemoglobin 13.7 g/dl (12.0-16.0); Lymphocytes Absolute Auto 1.2 X10*3/uL (1.2-4.9); Lymphocytes Percent Auto 27.2 % (20-40); Mean Corpuscular HGB Conc 34.8 g/dl (31.0-35.0); Mean Corpuscular Hemoglobin 33.5 pg (27.0-33.0); Mean Corpuscular Volume 96.3 fL (80-98); Mean Platelet Volume 8.7 fL (9.4-12.3); Monocytes Absolute Auto 0.6 X10*3/uL (0.1-1.2); Monocytes Percent Auto 13.5 % (2-11); Neutrophils Absolute Auto 2.5 X10*3/uL (2.0-8.3); Platelet Count 155 X10*3/uL (160-400); Red Blood Count 4.09 X10*6/uL (4.20-5.50); Red Cell Distribution Width 12.5 % (11.0-16.0); White Blood Count 4.5 X10*3/uL (4.8-10.8)
[2021-03-28 07:30] LABS: Alanine Aminotransferase 108 U/L (0-31); Albumin Level 3.8 g/dL (3.5-5.0); Alkaline Phosphatase 133 U/L (39-117); Anion Gap 15 (12-20); Aspartate Amino Transferase 81 U/L (5-31); Bilirubin Direct 0.6 mg/dL (0.0-0.5); Bilirubin Total 1.4 mg/dL (0.0-1.0); Blood Urea Nitrogen 13 mg/dL (9-16); Calcium 9.1 mg/dL (8.4-10.2); Calcium 9.2 mg/dL (8.4-10.2); Carbon Dioxide 23 mmol/L (22-29); Chloride 106 mmol/L (96-108); Creatinine Clr Calc Pharmacy 43.5; Estimated Glomerular Filt Rate > 60; Glucose Random 101 mg/dL (60-115); Glucose Random 102 mg/dL (60-115); Potassium 3.6 mmol/L (3.3-5.1); Potassium 3.7 mmol/L (3.3-5.1); Sodium 140 mmol/L (135-145); Total Protein 6.3 g/dL (6.5-8.0)
[2021-03-28] MEDS: Heparin Sodium,Porcine 5,000 UNIT/ML VIAL 5000 UNIT SUBCUT ×2 (08:30→20:42)
[2021-03-28] MEDS: amLODIPine Besylate 2.5 MG TABLET PO (08:30)
[2021-03-28] MEDS: busPIRone HCl 10 MG TABLET PO ×2 (08:30→20:42)
[2021-03-28] MEDS: 0.9 % Sodium Chloride Flush 3 ML SYRINGE IVFLUSH ×3 (08:31→22:48)
[2021-03-28] MEDS: ondansetron HCL 4 MG/2 ML VIAL IVPUSH (08:37)
--- NOTE | 2021-03-28 11:16 | HO.PM.IMPN ---
Subjective Subjective Date of Service: 03/28/21 Interval History: seen in follow-up for abdominal pain, elevated LFTs. No complaint of pain today. Patient seems somehow confused, her baseline is not well understood, l but I suspect that she likely has some underlying dementia. Liver panel is better today. Review of Systems No abdominal pain, no fever Physical Exam Vital Signs: Vital Signs: Last Vital Signs Temp 97.3 F 03/28/21 07:29 Pulse 90 03/28/21 07:29 Resp 17 03/28/21 07:29 BP 145/78 H 03/28/21 07:29 Pulse Ox 97 03/28/21 07:29 Body Mass Index 20.9 Const: Other: General: AO X 1, no acute distress Resp: CTA bilateral CVS: S1,S2,RRR GI: +BS, NT, no distention Skin: No rash Neuro: motor grossly intact Psych: flat appropriate Objective Data Current Medications Generic Name Dose Route Start Last Admin Trade Name Freq PRN Reason Stop Dose Admin Amlodipine Besylate 2.5 mg 03/27/21 10:00 03/28/21 08:30 Amlodipine Besylate 2.5 Mg Tablet PO 2.5 mg DAILY KATARINA Administration Protocol Buspirone HCl 10 mg 03/27/21 09:00 03/28/21 08:30 Buspirone Hcl 10 Mg Tablet PO 10 mg BID KATARINA Administration Docusate Sodium 100 mg 03/27/21 00:15 03/27/21 10:20 Docusate Sodium 100 Mg Capsule PO 100 mg DAILY PRN Administration Constipation Heparin Sodium (Porcine) 5,000 unit 03/27/21 00:15 03/28/21 08:30 Heparin Sodium,Porcine 5,000 Unit/Ml Vial SUBCUT 5,000 unit BID KATARINA Administration Ceftriaxone Sodium 1 gm/ 50 mls @ 100 mls/hr 03/27/21 22:00 03/27/21 21:22 Sodium Chloride IV Infused Q24H KATARINA Infusion Levothyroxine Sodium 112 mcg 03/27/21 08:00 03/28/21 05:19 Levothyroxine Sodium 112 Mcg Tablet PO 112 mcg DAILY@0630 KATARINA Administration Morphine Sulfate 2 mg 03/27/21 09:36 Morphine Sulfate 2 Mg/Ml Cartridge IVPUSH Q4H PRN Pain, Moderate (Pain Scale 4-6 Ondansetron HCl 4 mg 03/27/21 00:15 03/28/21 08:37 Ondansetron Hcl 4 Mg/2 Ml Vial IVPUSH 4 mg Q8H PRN Administration Nausea and Vomiting Pharmacy Consult 1 each 03/27/21 07:26 Consult Rx Perform Med Rec MISCELLANE ONCE PRN Consult order Sodium Chloride 3 ml 03/27/21 08:00 03/28/21 08:31 0.9 % Sodium Chloride Flush 3 Ml Syringe IVFLUSH 3 ml QSHIFT KATARINA Administration Labs CBC & Chem 7: 03/28/21 05:56 03/28/21 05:56 Labs: Laboratory Results - last 24 hr 03/28/21 03/28/21 03/28/21 05:56 05:56 05:56 WBC 4.5 L RBC 4.09 L Hgb 13.7 Hct 39.4 MCV 96.3 MCH 33.5 H MCHC 34.8 RDW 12.5 Plt Count 155 L MPV 8.7 L Immature Gran % (Auto) 0.0 Neut % (Auto) 56.0 Lymph % (Auto) 27.2 [place] % (Auto) 13.5 H Eos % (Auto) 2.9 Baso % (Auto) 0.4 Lymph # (Auto) 1.2 [place] # (Auto) 0.6 Eos # (Auto) 0.1 Baso # (Auto) 0.0 Abs Immat Gran (auto) 0.00 Absolute Neuts (auto) 2.5 Absolute Nucleated RBC 0.000 Nucleated RBC % (auto) 0.0 Sodium 140 140 Potassium 3.7 3.6 Chloride 106 106 Carbon Dioxide 23 23 Anion Gap 15 15 BUN 13 13 Creatinine 0.76 0.76 Estim Creat Clear Calc 43.5 43.5 Estimated GFR > 60 > 60 Random Glucose 101 D 102 Calcium 9.1 9.2 Total Bilirubin 1.4 H Direct Bilirubin 0.6 H AST 81 H ALT 108 H Alkaline Phosphatase 133 H Total Protein 6.3 L Albumin 3.8 Microbiology Microbiology Results: Microbiology 03/26/21 23:27 Urine Culture - Preliminary Urine clean catch - Clean Catch Midstream Gram negative rehana 03/27/21 00:30 Blood Culture - Preliminary Blood - Venous No growth after 24 hours. 03/27/21 00:30 Blood Culture - Preliminary Blood - Venous No growth after 24 hours. Quality Stroke Does the patient have a stroke diagnosis?: No VTE Prior VTE?: No VTE Risk Level:: Medical - moderate - high VTE Device Contraindication: Treatment Not Indicated VTE Drug Contraindication: N/A - Med Ordered Assessment and Plan (1) Abdominal pain: Status: Acute (2) Cholelithiasis: Status: Acute (3) Acute UTI: Status: Acute (4) Elevated LFTs: Status: Acute Assessment and Plan: 85-year-old female past medical history of hypothyroidism presents to the hospital with complaints of abdominal pain found to have elevated LFTs # Elevated lfts / abdominal pain - unclear etiology , abdominal ultrasound showed cholelithiasis without evidence of cholecystitis, CT abdomen showed diverticulosis and large esophageal hernia with intrathoracic stomach, no evidence of obstructionon salicylate and acetaminophen levels negative hepatitis B and C negative, pending hepatitis A LFTs trending down, ALT and alk-phos remains elevated, follow labs at a.m. clinically patient stable tolerating diet abdominal pain resolved likely was secondary hiatal hernia or passed galstone. # UTI, culture GNR, continue Ceftriaonxe # HTN - Elevated blood pressure not on home medication, will start patient on Norvasc 2.5 mg daily # hypothyroidism continue levothyroxine #Debility--I am told she come from assisting living, she looks rather frail with confusion and may have undiagnosed dementia, get PT eval to see how apropriate she is to return to assisted living. DVT ppx: heparin subq
[2021-03-28] MEDS: cefTRIAXone sodium 1 GM in 0.9 % Sodium Chloride 50 ML IV (20:46)
[2021-03-29] VITALS (7 sets, daily range): BP systolic 111–192; BP diastolic 59–100; PULSE 83–97; RESP 16–81; TEMP 35.8–37; O2SAT 93–97
[2021-03-29 05:54] LABS: Alanine Aminotransferase 66 U/L (0-31); Albumin Level 3.6 g/dL (3.5-5.0); Alkaline Phosphatase 112 U/L (39-117); Aspartate Amino Transferase 35 U/L (5-31); Bilirubin Direct 0.5 mg/dL (0.0-0.5); Bilirubin Total 1.1 mg/dL (0.0-1.0)
--- NOTE | 2021-03-29 09:33 | HO.PM.IMPN ---
Subjective Subjective Date of Service: 03/29/21 Interval History: Seen in follow-up for abdominal pain, elevated LFTs. No complaint of pain today. Patient remains confused but no agiation, her baseline is not well understood, l but I suspect that she likely has some underlying dementia. Liver panel is better today. Review of Systems No abdominal pain, no fever Physical Exam Vital Signs: Vital Signs: Last Vital Signs Temp 96.5 F L 03/29/21 02:41 Pulse 92 03/29/21 02:41 Resp 18 03/29/21 02:41 BP 138/79 03/29/21 02:41 Pulse Ox 97 03/29/21 02:41 Body Mass Index 20.9 Const: Other: General: AO X 1, no acute distress Resp: CTA bilateral CVS: S1,S2,RRR GI: +BS, NT, no distention Skin: No rash Neuro: motor grossly intact Psych: flat appropriate Objective Data Current Medications Generic Name Dose Route Start Last Admin Trade Name Freq PRN Reason Stop Dose Admin Amlodipine Besylate 2.5 mg 03/27/21 10:00 03/28/21 08:30 Amlodipine Besylate 2.5 Mg Tablet PO 2.5 mg DAILY KATARINA Administration Protocol Buspirone HCl 10 mg 03/27/21 09:00 03/28/21 20:42 Buspirone Hcl 10 Mg Tablet PO 10 mg BID KATARINA Administration Docusate Sodium 100 mg 03/27/21 00:15 03/27/21 10:20 Docusate Sodium 100 Mg Capsule PO 100 mg DAILY PRN Administration Constipation Heparin Sodium (Porcine) 5,000 unit 03/27/21 00:15 03/28/21 20:42 Heparin Sodium,Porcine 5,000 Unit/Ml Vial SUBCUT 5,000 unit BID KATARINA Administration Ceftriaxone Sodium 1 gm/ 50 mls @ 100 mls/hr 03/27/21 22:00 03/28/21 21:19 Sodium Chloride IV Infused Q24H KATARINA Infusion Levothyroxine Sodium 112 mcg 03/27/21 08:00 03/28/21 05:19 Levothyroxine Sodium 112 Mcg Tablet PO 112 mcg DAILY@0630 KATARINA Administration Morphine Sulfate 2 mg 03/27/21 09:36 Morphine Sulfate 2 Mg/Ml Cartridge IVPUSH Q4H PRN Pain, Moderate (Pain Scale 4-6 Ondansetron HCl 4 mg 03/27/21 00:15 03/28/21 08:37 Ondansetron Hcl 4 Mg/2 Ml Vial IVPUSH 4 mg Q8H PRN Administration Nausea and Vomiting Pharmacy Consult 1 each 03/27/21 07:26 Consult Rx Perform Med Rec MISCELLANE ONCE PRN Consult order Sodium Chloride 3 ml 03/27/21 08:00 03/28/21 22:48 0.9 % Sodium Chloride Flush 3 Ml Syringe IVFLUSH 3 ml QSHIFT KATARINA Administration Labs CBC & Chem 7: 03/28/21 05:56 03/28/21 05:56 Labs: Laboratory Results - last 24 hr 03/29/21 04:58 Total Bilirubin 1.1 H Direct Bilirubin 0.5 AST 35 H D ALT 66 H Alkaline Phosphatase 112 Total Protein 6.0 L Albumin 3.6 Microbiology Microbiology Results: Microbiology 03/26/21 23:27 Urine Culture - Final Urine clean catch - Clean Catch Midstream Escherichia coli 03/27/21 00:30 Blood Culture - Preliminary Blood - Venous No growth after 48 hours. 03/27/21 00:30 Blood Culture - Preliminary Blood - Venous No growth after 48 hours. Quality Stroke Does the patient have a stroke diagnosis?: No VTE Prior VTE?: No VTE Risk Level:: Medical - moderate - high VTE Device Contraindication: Treatment Not Indicated VTE Drug Contraindication: N/A - Med Ordered Assessment and Plan (1) Abdominal pain: Status: Acute (2) Cholelithiasis: Status: Acute (3) Acute UTI: Status: Acute (4) Elevated LFTs: Status: Acute Assessment and Plan: 85-year-old female past medical history of hypothyroidism presents to the hospital with complaints of abdominal pain found to have elevated LFTs # Elevated LFTs / abdominal pain - unclear etiology , abdominal ultrasound showed cholelithiasis without evidence of cholecystitis, CT abdomen showed diverticulosis and large esophageal hernia with intrathoracic stomach, no evidence of obstructionon salicylate and acetaminophen levels negative hepatitis B and C negative, pending hepatitis A LFTs trending down, ALT and alk-phos is now normal abdominal pain resolved and LFTs improved, likely passed gallstone # UTI, culture= E.col sensitive to Ceftriaxone #Metabolic encephalopathy on top of dementia--she is still very confused # HTN--presently controlled, continue Norvasc 2.5/daily # hypothyroidism continue levothyroxine #Debility--I am told she come from assisting living, she looks rather frail with confusion and may have undiagnosed dementia, PT recommend STR, DVT ppx: heparin subq
[2021-03-29] MEDS: busPIRone HCl 10 MG TABLET PO ×2 (09:56→20:36)
[2021-03-29] MEDS: amLODIPine Besylate 2.5 MG TABLET PO (09:56)
[2021-03-29] MEDS: Levothyroxine Sodium 112 MCG TABLET PO (09:56)
[2021-03-29] MEDS: Heparin Sodium,Porcine 5,000 UNIT/ML VIAL 5000 UNIT SUBCUT ×2 (09:57→20:36)
[2021-03-29] MEDS: 0.9 % Sodium Chloride Flush 3 ML SYRINGE IVFLUSH ×3 (09:57→23:19)
--- NOTE | 2021-03-29 11:06 | MHC.CM.PN ---
PER CONVERSATION WITH FAMILY- SON MARIAH AND ANISHA VENTURA, (WITH PERMISSION FROM PATIENT), REFERRAL PLACED TO [facility] FOR STR. CM STILL AWAITING HCP, WHICH IS BELIEVED TO BE ON FILE AT [facility] CM FOLLOWING.
--- NOTE | 2021-03-29 12:41 | MHC.CM.PN ---
PER CONVERSATION WITH SON, MARIAH ([phone]), PATIENT HAS BEEN COVID VACCINATED VACCINE WAS ADMINISTERED AT [facility]. [facility] MADE AWARE.
[2021-03-29] MEDS: cefTRIAXone sodium 1 GM in 0.9 % Sodium Chloride 50 ML IV (20:41)
[2021-03-30 03:32] VITALS: PULSE 104; RESP 18; TEMP 36.8; O2SAT 95
[2021-03-30 03:39] VITALS: BP 134/74
[2021-03-30] MEDS: Levothyroxine Sodium 112 MCG TABLET PO (05:38)
[2021-03-30 07:20] VITALS: BP 139/78; PULSE 98; RESP 16; TEMP 36.4; O2SAT 95
[2021-03-30] MEDS: 0.9 % Sodium Chloride Flush 3 ML SYRINGE IVFLUSH (07:48)
[2021-03-30] MEDS: Heparin Sodium,Porcine 5,000 UNIT/ML VIAL 5000 UNIT SUBCUT (07:48)
[2021-03-30] MEDS: amLODIPine Besylate 2.5 MG TABLET PO (07:48)
[2021-03-30] MEDS: busPIRone HCl 10 MG TABLET PO (07:48)
[2021-03-30 09:09] LABS: TSH reflex Free T4 < 0.01 uIU/mL (0.32-4.0)
[2021-03-30 09:34] LABS: Folate 8.7 ng/mL (> or = 4.0); Vitamin B12 344 pg/mL (200-900)
[2021-03-30 09:43] LABS: Free T4 (Free Thyroxine) 1.82 ng/dL (0.71-1.85)
--- NOTE | 2021-03-30 10:04 | P.DS_ITS ---
DS: Providers Provider Date of Service: 03/30/21 Date of admission: 03/27/21 00:07 Primary care physician: Unknown Physician Consults: 03/30/21 10:03 Consult to General Surgery Routine Consulting Provider: Zhen Mason Reason for consultation: Gallstone Has provider been notified: No DS: Diagnosis Discharge Diagnosis (1) Abdominal pain: Status: Resolved (2) Cholelithiasis: Status: Resolved (3) Acute UTI: Status: Resolved (4) Elevated LFTs: Status: Resolved DS: Medications Discharge Medications Home Medications: Home Medications Medication Instructions Recorded Confirmed buspirone 1 tab PO BID 03/27/21 03/27/21 levothyroxine 1 tab PO DAILY 03/27/21 03/27/21 DS: Summary Hospital Course Hospital Course: Admission HPI: 85-year-old female who has a past medical history of hypertension and hypothyroidism presents to the hospital brought in by her son with complaints of abdominal pain. Although patient is alert and oriented to self and place she is not a good history and possibly due to her decrease evening. I spoke to the son who reports that patient was complaining of severe abdominal pain, patient reports the pain is mostly localized to the left abdomen, nonradiating, she has some nausea with no vomiting. Although her son says that she vomited the day prior, denies any diarrhea, this son reports that the patient was with her sister the day prior and they went out to eat, this sister was also admitted earlier in the evening for bacteremia colitis. patient otherwise has no chest pain, no urinary symptoms, no lower extremity edema, no numbness tingling or weakness. No headache or change in vision. On arrival to the ED patient hemodynamically stable with a temp of 98.8?, heart rate of 75, respiratory rate of 18, blood pressure of 207/100, satting 97% on room air labs on arrival are significant for WBC count of 6.3, PT of 13.3, lactic acid of 1.2, total bili of 2.8, was 1.5 in November, AST of 405, ALT of 130, alk-phos of 154 all were normal prior tests, urine that is positive for leukocyte Estrace and WBC, negative salicylate level as well as light of Tylenol. Hepatitis B and C nonreactive. Patient denies taking any NSAIDs. abdominal CT shows diverticulosis with no evidence of diverticulitis. Large esophageal hernia, pancreas and transverse colon extend through the widened esophageal hiatus. No evidence of obstruction abdominal ultrasound showed cholelithiasis without evidence of cholecystitis Hospital course: Abdominal pain with elevated LFTS initial Bili of 2.8, ALK phos of 154 and AST of 405 , and AST of 136 and finding of gallstone and large hiatal hernia. Hepatitis profile has been unremakable, lipase ok. The LFTs have trended towrard normal with bili now 1.1, ALK Phos is now normal at 112 and AST down to 35 and ALT down to 66. She has no more pain. I suspect that patient likely had choledocholithiasis and has passed a stone with resolution of the pain and normalizing LFTS. Due to possible that this will happen again, she should be followed by Surgery and to be evaluated for Cholecystectomy. Hiatal hernia was unlikely cause of her pain on this occasio. # UTI, culture= E.col sensitive to Ceftriaxone, treated for 3 days and will treat with Oral Ceftin for 2 more days. #Metabolic encephalopathy on top of dementia, this was likely due to UTI and seem to be back at baseline. She likely has undiagnosed dementia as family has raised this concern in the past. B12 and folate acid level are within normal. 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 # HTN--presently controlled, continue Norvasc 2.5/daily # hypothyroidism--Over treated TSH level is <0.01, FT4 is 1.82 which is within normal. Reducing Levothyroxine from 112 mcg to 100 mcg, and should have level check in 4 to 6 weeks #Dispo--To short term rehab Final diagnosis: Choledocholithiasis. Metabolic encephalopathy elevated LFTs. E coli UTI Ohter diagnoses: Hypothyroidism dementia hypertension Time Spent with Patient Time attestation: Total time spent providing and/or coordinating discharge services: Discharge coordination time: Greater than 30 minutes Quality: Stroke Does the patient have a stroke diagnosis?: No Physical Exam Vital Signs: Vital Signs: Last Vital Signs Temp 97.5 F 03/30/21 07:20 Pulse 98 03/30/21 07:20 Resp 16 03/30/21 07:20 BP 139/78 03/30/21 07:20 Pulse Ox 95 03/30/21 07:20 Body Mass Index 20.9 Const: Other: General: AO X 2, no acute distress Resp: CTA bilateral CVS: S1,S2,RRR GI: +BS, NT, no distention Skin: No rash Neuro: motor grossly intact Psych: appropriate affect DS: Data Data Completed and Pending Labs on day of discharge: Laboratory Results - last 24 hr 03/30/21 03/30/21 07:49 07:49 Vitamin B12 344 Folate 8.7 TSH < 0.01 L Free T4 1.82 Preliminary micro results at discharge 03/27/21 00:30 Blood Culture - Preliminary Blood - Venous No growth after 48 hours. 03/27/21 00:30 Blood Culture - Preliminary Blood - Venous No growth after 48 hours. Discharge Plan Discharge Anticipated Discharge Date/Time: 03/30/21 09:58 Patient Disposition: er [facility] Discharge Diagnosis: UTI, gallstones Referrals: Jose Acosta [Outside] - 1 Week Zhen Mason MD [Physician] - 1 Week Physician,Unknown [Physician] - 1 Week Discharge Medications: New cefuroxime axetil 250 mg tablet 250 mg PO BID Qty: 3 RF: 0 amlodipine 2.5 mg Tablet 2.5 mg PO DAILY Qty: 30 RF: 0 levothyroxine 100 mcg capsule 100 mcg PO DAILY Qty: 30 RF: 0 Continued buspirone 10 mg tablet 1 tab PO BID RF: 0 Discontinued levothyroxine 112 mcg tablet 1 tab PO DAILY RF: 0 Discharge Orders: Discharge Order (Routine); Ordered 03/30/21 Ordered By: Lj Pack Diet: advance to usual diet Activity on Discharge: As tolerated Stand Alone Forms: Patient Portal Discharge page Care Plan Goals: Full recovery to baseline functioning and possibly returning to assisted living, less likely independent living Health Concerns: UTI, demenita, gallstone Plan of Treatment: Complete course of antibiotics and follow up with your Doctor in a week Follow up with Surgeon Dr. Mason) for possible gallblader surgery Assessment: See above Discharge Date/Time: 03/30/21 14:17
[2021-03-30 10:21] LABS: Alanine Aminotransferase 61 U/L (0-31); Albumin Level 3.7 g/dL (3.5-5.0); Alkaline Phosphatase 111 U/L (39-117); Aspartate Amino Transferase 43 U/L (5-31); Bilirubin Direct 0.4 mg/dL (0.0-0.5); Bilirubin Total 1.3 mg/dL (0.0-1.0); Total Protein 6.3 g/dL (6.5-8.0)
--- NOTE | 2021-03-30 10:46 | PM.CNGS ---
History of Present Illness Consult details Consult date: 03/30/21 Narrative: 85-year-old female referred for gallstones. She was actually admitted to the hospital on 03/26/2021 for abdominal pain. The patient is not very reliable with her history but review of her ER and admit notes state that her pain mass mostly on the left side. She was noted to have vomited as well prior to admission. She had mildly elevated LFTs in the ER. She had a CAT scan showing gallstones without cholecystitis. There was no suggestion of any CBD obstruction at that time. She also had diverticulosis without diverticulitis on imaging. She currently denies any abdominal pain. She says she feels great and wants to go home. She has been tolerating diet as well. She has good GI functions. Review of Systems Constitutional: Constitutional: Denies chills and Denies fever(s) Cardiovascular: Cardiovascular: Denies chest pain, Denies dyspnea and Denies dyspnea on exertion Respiratory: Respiratory: Denies cough, Denies dyspnea and Denies dyspnea on exertion Gastrointestinal: Gastrointestinal: Denies hematochezia and Denies change in bowel habits Genitourinary: Genitourinary: Denies hematuria Musculoskeletal: Musculoskeletal: Denies back pain and Denies limited range of motion Neurologic: Denies focal weakness and Denies convulsions Psychiatric: Psychiatric: Denies depression and Denies mood swings PMFSH Past Medical History Medical History Hypertension Hypothyroidism Psoriasis Social History Social History Household Members: None Housing: Apartment Do you presently have visiting nurse or other home services: Yes Alcohol intake: never Patient Tobacco Use Status: Never used Tobacco service: No Current occupational status: retired Meds Allergies Allergy/AdvReac Type Severity Reaction Status Date / Time Sulfa (Sulfonamide Allergy Mild NAUSEA & Verified 09/29/20 17:26 Antibiotics) VOMITING Active Medications: Current Medications Generic Name Dose Route Start Last Admin Trade Name Freq PRN Reason Stop Dose Admin Amlodipine Besylate 2.5 mg 03/27/21 10:00 03/30/21 07:48 Amlodipine Besylate 2.5 Mg Tablet PO 2.5 mg DAILY KATARINA Administration Protocol Buspirone HCl 10 mg 03/27/21 09:00 03/30/21 07:48 Buspirone Hcl 10 Mg Tablet PO 10 mg BID KATARINA Administration Cefuroxime Axetil 250 mg 03/30/21 11:00 Cefuroxime Axetil 250 Mg Tablet PO 03/30/21 11:01 ONCE ONE Docusate Sodium 100 mg 03/27/21 00:15 03/27/21 10:20 Docusate Sodium 100 Mg Capsule PO 100 mg DAILY PRN Administration Constipation Heparin Sodium (Porcine) 5,000 unit 03/27/21 00:15 03/30/21 07:48 Heparin Sodium,Porcine 5,000 Unit/Ml Vial SUBCUT 5,000 unit BID KATARINA Administration Ceftriaxone Sodium 1 gm/ 50 mls @ 100 mls/hr 03/27/21 22:00 03/29/21 21:28 Sodium Chloride IV Infused Q24H KATARINA Infusion Levothyroxine Sodium 112 mcg 03/27/21 08:00 03/30/21 05:38 Levothyroxine Sodium 112 Mcg Tablet PO 112 mcg DAILY@0630 KATARINA Administration Morphine Sulfate 2 mg 03/27/21 09:36 Morphine Sulfate 2 Mg/Ml Cartridge IVPUSH Q4H PRN Pain, Moderate (Pain Scale 4-6 Ondansetron HCl 4 mg 03/27/21 00:15 03/28/21 08:37 Ondansetron Hcl 4 Mg/2 Ml Vial IVPUSH 4 mg Q8H PRN Administration Nausea and Vomiting Pharmacy Consult 1 each 03/27/21 07:26 Consult Rx Perform Med Rec MISCELLANE ONCE PRN Consult order Sodium Chloride 3 ml 03/27/21 08:00 03/30/21 07:48 0.9 % Sodium Chloride Flush 3 Ml Syringe IVFLUSH 3 ml QSHIFT KATARINA Administration Home Medications Medication Instructions Recorded Confirmed Last Taken Type buspirone 1 tab PO BID 03/27/21 03/27/21 Unknown History Physical Exam Vital Signs: Vital Signs: Last Vital Signs Temp 97.5 F 03/30/21 07:20 Pulse 98 03/30/21 07:20 Resp 16 03/30/21 07:20 BP 139/78 03/30/21 07:20 Pulse Ox 95 03/30/21 07:20 Body Mass Index 20.9 Const: Other: Looks well, answers questions well General: comfortable and no acute distress Orientation/consciousness: patient oriented x3 Eyes: Sclerae: sclerae normal Neck: Neck: Yes no lymphadenopathy Resp: Auscultation: clear to auscultation bilaterally Cardio: Rhythm: regular rhythm GI: Palpation (GI): Soft to palpation, nontender and no guarding Neuro: General: patient oriented x3 Results Labs Result diagrams: 03/28/21 05:56 03/28/21 05:56 Labs: Abnormal lab results 03/30/21 Range/Units 07:49 Total Bilirubin 1.3 H (0.0-1.0) mg/dL AST 43 H (5-31) U/L ALT 61 H (0-31) U/L Total Protein 6.3 L (6.5-8.0) g/dL TSH < 0.01 L (0.32-4.0) uIU/mL Liver Function 03/30/21 Range/Units 07:49 Total Bilirubin 1.3 H (0.0-1.0) mg/dL Direct Bilirubin 0.4 (0.0-0.5) mg/dL AST 43 H (5-31) U/L ALT 61 H (0-31) U/L Alkaline Phosphatase 111 (39-117) U/L Albumin 3.7 (3.5-5.0) g/dL Urine 03/26/21 Range/Units 23:30 Urine Color DARK YELLOW Urine Appearance HAZY Urine pH 7.0 (5.0-8.0) Ur Specific [place] 1.020 (1.005-1.025) Urine Protein TRACE (NEG-TRACE) MG/DL Urine Glucose (UA) NEG (NEG) MG/DL All other labs normal. Imaging Abdomen CT scan report/results: report reviewed and image reviewed CT scan - pelvis: report reviewed and image reviewed Abdominal ultrasound report/results: report reviewed and image reviewed Assessment and Plan (1) Cholelithiasis: Qualifiers: Biliary obstruction: without biliary obstruction Cholecystitis presence: without cholecystitis Cholelithiasis location: gallbladder Qualified Code(s): K80.20 - Calculus of gallbladder without cholecystitis without obstruction Status: Acute She was admitted because of the abdominal pain and this seemed to be on the left side. I have reviewed her imaging studies including CT scan and ultrasound and this shows gallstones. She did have elevated LFTs on admission with a bilirubin of 1.7/ 0.6 and this has gone down to 1.3/0.4. Her AST/ALT were 317/188 and are now down to 43/61. She currently does not have any significant abdominal pain nor tenderness. Her exam is benign. She looks well and comfortable and she has good GI function. I am uncertain if her gallstones is etiology of her pain. I will see her in the office for a follow-up visit and discuss her with her her options including a cholecystectomy down the line. I may follow up her LFTs then as an outpatient and possibly consider MRCP. Procedures Date of Service Date of Service: 03/30/21
--- NOTE | 2021-03-30 11:27 | MHC.CM.PN ---
PATIENT TO TRANSFER TO [facility] FOR STR SON, MARIAH ([phone]) AWARE OF PLAN. UNIT AND RN AWARE OF PLAN. [facility] TO TRANSPORT FOR 1400. IMM 03/29 IN CHART
[2021-03-30 11:31] LABS: COVID-19 Test Negative (Negative)
[2021-03-30 11:47] VITALS: BP 114/66; PULSE 87; RESP 16; TEMP 36.6; O2SAT 95
--- NOTE | 2021-03-30 14:43 | MHC.CM.PN ---
HCP COMPLETED, NAMING SON, MARIAH. PATIENT DOES NOT WANT A SECOND AGENT WHEN ASKED. COPY FAXED INTO [email or web address] AND PLACED IN CHART.
== END 2021-03-30 14:17 | disposition skilled nursing facility (03) | DRG 689 ==
LOC: HO.ED 03-27 00:38 → HO.EDOVER 03-27 01:14 → HO.S3 03-27 02:04
PROVIDERS: Admitting Provider Internal Medicine; Emergency Provider Internal Medicine; PCP Internal Medicine Medical Oncology; Visit Provider Internal Medicine
DX: N39.0 Urinary tract infection, site not specified (principal); G93.41 Metabolic encephalopathy; K80.20 Calculus of gallbladder without cholecystitis without obstruction; R54 Age-related physical debility; F03.90 Unspecified dementia, unspecified severity, without behavioral disturbance, psychotic disturbance, mood disturbance, and anxiety; B96.20 Unspecified Escherichia coli [E. coli] as the cause of diseases classified elsewhere; E03.9 Hypothyroidism, unspecified; K44.9 Diaphragmatic hernia without obstruction or gangrene; I10 Essential (primary) hypertension; K57.30 Diverticulosis of large intestine without perforation or abscess without bleeding; Z20.822 Contact with and (suspected) exposure to COVID-19; Z88.2 Allergy status to sulfonamides; Z79.890 Hormone replacement therapy; Z79.899 Other long term (current) drug therapy
CPT/HCPCS: 36415; 74176; 76705; 80048; 80053; 80076; 80143; 80179; 81001; 81003; 82140; 82607; 82746; 83605; 83690; 84439; 84443; 85025; 85610; 86704; 86706; 86708; 86709; 86803; 87040; 87086; 87088; 87186; 87340; 87635; 97162; 97163; 99285; J0696; J2405

== ENCOUNTER 2021-04-20 08:10 | Outpatient (REF) | payer SELFPAY ==
[2021-04-20 06:38] LABS: Hemoglobin 12.4 g/dl (12.0-16.0); Mean Corpuscular HGB Conc 33.5 g/dl (31.0-35.0); Mean Corpuscular Hemoglobin 32.5 pg (27.0-33.0); Mean Corpuscular Volume 96.9 fL (80-98); Mean Platelet Volume 8.8 fL (9.4-12.3); Platelet Count 163 X10*3/uL (160-400); Red Blood Count 3.82 X10*6/uL (4.20-5.50); Red Cell Distribution Width 12.5 % (11.0-16.0); White Blood Count 5.3 X10*3/uL (4.8-10.8)
[2021-04-20 07:00] LABS: Anion Gap 10 (12-20); Blood Urea Nitrogen 11 mg/dL (9-16); Calcium 8.5 mg/dL (8.4-10.2); Carbon Dioxide 28 mmol/L (22-29); Chloride 106 mmol/L (96-108); Estimated Glomerular Filt Rate > 60; Glucose Random 91 mg/dL (60-115); Potassium 3.6 mmol/L (3.3-5.1); Sodium 140 mmol/L (135-145)
== END 2021-04-20 08:11 | disposition home or self-care (01) ==
LOC: HO.MMNH1L 08:10
PROVIDERS: Visit Provider Family Medicine
DX: E03.9 Hypothyroidism, unspecified (principal)
CPT/HCPCS: 36415; 80048; 85027

== ENCOUNTER 2021-04-27 21:22 | Outpatient (REF) | payer SELFPAY | END 2021-04-27 21:23 | disposition home or self-care (01) | LOC: HO.MMNH1L 21:22 | PROVIDERS: Visit Provider Family Medicine | DX: Z13.89 Encounter for screening for other disorder (principal) ==

== ENCOUNTER 2021-05-04 00:21 | Outpatient (REF) | payer SELFPAY | END 2021-05-04 00:22 | disposition home or self-care (01) | LOC: HO.MMNH1L 00:21 | PROVIDERS: Visit Provider Family Medicine | DX: Z13.89 Encounter for screening for other disorder (principal) ==

== ENCOUNTER 2022-05-12 15:58 | Emergency (ER) | payer MEDICARE, MEDICAID, SELFPAY ==
--- NOTE | ~2022-05-12 | CT_ITS ---
EXAMINATION: CT HEAD WITHOUT CONTRAST CT CERVICAL SPINE WITHOUT CONTRAST CLINICAL INFORMATION: Headache. Fall. Loss of consciousness. COMPARISON: CT head and cervical spine from 09/29/2020. TECHNIQUE: Contiguous axial imaging was performed from the skull base to vertex without intravenous administration of contrast. Contiguous axial imaging was performed from the upper chest through the skull base without intravenous administration of contrast. Coronal and sagittal reformats were obtained at the acquisition workstation. This CT examination was performed using dose optimization techniques as appropriate, variously including the following: *Automated exposure control. *Adjustment of mA and/or kV according to patient size (this includes techniques or standardized protocols for targeted exams where dose is matched to indication/reason for exam; i.e. extremities or head). *Use of iterative reconstruction technique. DLP: 876 mGy-cm FINDINGS: Head: There is no evidence of acute intracranial hemorrhage or edematous territorial infarction. Scattered hypoattenuation in the periventricular and deep white matter are consistent with moderate microangiopathy. Bland-white matter differentiation is preserved. Proportional prominence of the ventricles and sulcal spaces. Chronic atrophy of the cerebellum. No abnormal mass effect or midline shift. No extra-axial fluid collections. Calcific atherosclerotic disease of the intracranial internal carotid and vertebral arteries. No hyperdense vessel sign. Moderate subgaleal hematoma along the posterior vertex. No associated osseous abnormalities. Mild mucosal thickening of the paranasal sinuses. The mastoid air cells and middle ear cavities are clear. Right-sided lens extraction. Cervical Spine: Chronic left convex curvature of the cervical spine. The atlantooccipital articulations remain well aligned. Advanced degenerative arthropathy of the atlantodental and atlantoaxial articulations. Chronic mild basilar invagination. The C3-C4 vertebral segments are fused. Mild degenerative anterolisthesis of C3 on C4. Moderate degenerative anterolistheses of C5 on C6 and C7 on T1. Advanced degenerative disc disease from C4-T1. Moderate degenerative disc disease at all additional levels. No evidence of acute fracture or subluxation. The vertebral body heights are well-maintained. There is no prevertebral soft tissue swelling. The thyroid gland and remaining cervical soft tissues are normal in appearance. The lung apices demonstrate no abnormalities. CT/CT cervical spine wo con IMPRESSION: 1. No evidence of acute intracranial hemorrhage or edematous territorial infarction. Moderate underlying microangiopathy and generalized cerebral volume loss. Chronic cerebellar atrophy. 2. No evidence of acute fracture or traumatic subluxation of the cervical spine. Advanced multilevel degenerative spondyloarthropathy of the cervical spine. 3. Posterior scalp hematoma without associated osseous abnormalities.
--- NOTE | ~2022-05-12 | XR_ITS ---
EXAMINATION: XR THORACOLUMBAR SPINE CLINICAL INFORMATION: Fall COMPARISON: Lateral chest x-ray June 2017 TECHNIQUE: 2 views of the thoracic spine FINDINGS: There is curvature of the lower thoracic spine to the left. Bone alignment is otherwise normal. No acute fracture or dislocation is seen. There is slight loss of height of the superior endplates of the T11 and L1 vertebral body suggestive of mild old compression fractures. No acute fracture is seen. There is multilevel degenerative disc disease. Paraspinal soft tissues are normal. The cardiac silhouette appears enlarged. XR/XR thoracic spine 2V IMPRESSION: No acute fracture. Mild old-appearing compression fractures of the superior endplate of the T11 and L1 vertebral bodies.
--- NOTE | ~2022-05-12 | CT_ITS ---
EXAMINATION: CT CHEST, ABDOMEN AND PELVIS WITHOUT CONTRAST CLINICAL INFORMATION: Reason for Exam r/o dissection COMPARISON: CT abdomen pelvis 03/26/2021 TECHNIQUE: Multidetector volumetric imaging was performed from the thoracic inlet through the pubic symphysis without IV contrast. Sagittal and coronal reformatted images were obtained on the technologist's workstation. This CT examination was performed using dose optimization techniques as appropriate, variously including the following: *Automated exposure control *Adjustment of mA and/or kV according to patient size (this includes techniques or standardized protocols for targeted exams where dose is matched to indication/reason for exam; i.e. extremities or head) *Use of iterative reconstruction technique DLP: 311 and 606 mGy-cm FINDINGS: CHEST: Lung: The lungs are clear without focal opacity or nodule. Mediastinum: A large hiatal hernia is present with the entirety of the stomach the chest. Heart size normal. Extensive coronary calcifications are seen. No hilar or mediastinal lymphadenopathy. The diagnosis of dissection is not possible to make a study was performed without IV contrast. No calcified intimal flaps are seen. No aortic aneurysm is seen. Pericardium/Pleura: No significant effusion. No pleural mass or thickening. Chest Wall/Axilla: Unremarkable ABDOMEN/PELVIS: Peritoneal Space: No significant free air or free fluid identified. Liver, Gallbladder, Biliary Tree: The liver is normal in size, shape, and attenuation. No focal hepatic lesion or biliary ductal dilatation is present. The gallbladder is distended with layering stones without obvious pericholecystic inflammatory changes. The portal venous system is not adequately assessed as the exam was without contrast and there is distortion of structures with herniation of the pancreas and adjacent structures into the chest. Pancreas: A large amount of pancreas has also herniated upwards into the chest along with the stomach. Spleen: Unremarkable Adrenal Glands: Unremarkable Kidneys and Ureters: The kidneys are normal in size, shape, and attenuation. No hydronephrosis, hydroureter, or calculi seen. No perinephric stranding. Bladder: Unremarkable Gastrointestinal Tract: See discussion above regarding stomach within chest. Extensive diverticular changes are present in the sigmoid colon with scattered diverticula seen throughout the remainder of the colon there is no evidence of diverticulitis. The small and large bowel are unremarkable. The appendix is not seen with certainty but there is no evidence of appendicitis. Abdominal Wall: No significant hernia is appreciated. Lymph Nodes: No retroperitoneal lymphadenopathy Vascular: Marked calcific changes present in the aorta and iliofemoral vessels with ectasia without gross aneurysm.. The IVC appears unremarkable. PELVIC VISCERA: Surgically removed. OSSEUS STRUCTURES: Marked degenerative changes are noted in the throughout the spine. There is unchanged superior endplate compression of the L1 vertebral body. No bony destructive lesions are seen. CT/CT abdomen pelvis wo con IMPRESSION: 1. The study not adequate to exclude aortic dissection as it was done without contrast. There is atherosclerotic disease but no aneurysm seen. 2. Large diaphragmatic hernia with stomach portion of the pancreas in the chest. 3. Distended gallbladder with cholelithiasis without obvious inflammatory changes. 4. Extensive sigmoid diverticulosis without diverticulitis. Fleischner guidelines were followed.
[2022-05-12 16:09] VITALS: BP 132/80; BP 209/92; PULSE 61; PULSE 82; RESP 18; TEMP 36.9; O2SAT 96; BMI 22.0
--- NOTE | 2022-05-12 16:12 | ED.GENADULT ---
HPI - General Adult General Chief complaint: Fall Stated complaint: fall Time Seen by Provider: 05/12/22 16:03 Source: patient and EMS Mode of arrival: EMS Limitations: no limitations History of Present Illness HPI narrative: Patient comes to the emergency room via EMS complaining of thoracic back pain. Patient lives in assisted living, has history of dementia. Patient states that she does not remember falling, but states that she has been having this pain for approximately 2 weeks. However, EMS reports that the staff mentioned that the patient complained of a fall/falling out of bed early this morning and complaining of acute on chronic middle thoracic pain. Patient states she has no headache, no neck pain, no upper or lower back pain, no hip pain, no lower extremity injuries. Patient is not on any blood thinners. Patient denies any numbness or tingling in upper lower extremities, no urinary/fecal incontinence or retention. No lower extremity weakness. Related Data Home Medications Medication Instructions Recorded Confirmed buspirone 10 mg tablet 1 tab PO BID 03/27/21 03/27/21 Previous Rx's Medication Instructions Recorded amlodipine 2.5 mg tablet 2.5 mg PO DAILY #30 tabs 03/30/21 cefuroxime axetil 250 mg tablet 250 mg PO BID #3 tabs 03/30/21 levothyroxine 100 mcg capsule 100 mcg PO DAILY #30 caps 03/30/21 amlodipine 10 mg tablet 10 mg PO DAILY #30 tabs 05/12/22 amlodipine 5 mg tablet 5 mg PO DAILY #30 tabs 05/12/22 tramadol 50 mg tablet 25 mg PO BID PRN pain #4 tabs 05/12/22 Allergies Allergy/AdvReac Type Severity Reaction Status Date / Time Sulfa (Sulfonamide Allergy Mild NAUSEA & Verified 09/29/20 17:26 Antibiotics) VOMITING Review of Systems Review of Systems: Constitutional : No Weight loss, No Fever, No Chills, No Night Sweats, No Fatigue, No Malaise ENT/Mouth : No Hearing loss, No Ear Pain, No Nasal Congestion, No Sinus Pain, No Hoarseness, No sore throat, No Rhinorrhea, No Swallowing Difficulty Eyes: No Eye Pain, No Swelling, No Redness, No Foreign Body, No Discharge, No Vision Changes Cardiovascular : No Chest Pain, No SOB, No Dyspnea on Exertion, No Orthopnea, No Edema, No Palpitations Respiratory : No Cough, No Sputum, No Wheezing, No Smoke Exposure, No Dyspnea Gastrointestinal : No Nausea, No Vomiting, No Diarrhea, No Constipation, No abdominal Pain, No Hematochezia, No Melena Genitourinary : no irregular bleeding, No Dysuria, No Urinary Frequency, No Hematuria, No Urinary Incontinence, No Urgency, No Flank Pain, No Urinary Flow Changes, No Hesitancy Musculoskeletal : Complaining of middle back pain Skin : No Skin Lesions, No rash Neuro : No Weakness, No Numbness, No Paresthesias, No Loss of Consciousness, No Dizziness, No Headache Psych : No Anxiety/Panic, No Depression, No SI/HI/AH/VH, No Social Issues, Heme/Lymph: No Bruising, No Bleeding,No Lymphadenopathy Endocrine : No Polyuria, No Polydipsia, No Temperature Intolerance [facility] Past Medical History Medical History (Updated 05/12/22 @ 22:40 by Tania Mclaughlin MD) Dementia Hypertension Hypothyroidism Psoriasis Social History Social History Household Members: None Housing: Apartment Do you presently have visiting nurse or other home services: Yes Alcohol intake: never Patient Tobacco Use Status: Never used Tobacco Use of substances other than those prescribed or required for medical reasons: No Advance Directives: No Advance Directives Information Provided: No service: No Current occupational status: retired Physical Exam ED Vital Signs: Vital Signs - 24 hr 05/12/22 16:09 05/12/22 16:33 05/12/22 17:55 Temperature 98.4 F 98.4 F Pulse Rate 61 59 56 Respiratory Rate 18 20 Blood Pressure 209/92 H 203/83 H 186/84 H Pulse Oximetry 96 96 95 Oxygen Delivery Method Room Air Room Air BMI result Body Mass Index 22.0 Const Other: Appearance: Alert. Oriented X3. No acute distress. Eyes: Pupils equal, round and reactive to light. ENT: Pharynx normal. Neck: Normal inspection. Neck supple. No lymph nodes noted. No crepitus CVS: Normal heart rate and rhythm. Pulses normal. Normal S1 and S2 Respiratory: No respiratory distress. Breath sounds normal. No Wheezing. No rales Abdomen: Soft and nontender. No rigidity. No distention. Back: No pain to palpation in cervical, upper back and lumbar/sacral spine. Pain to palpation in the middle thoracic spine, no ecchymosis Skin: Skin warm and dry. Normal skin color. Normal skin turgor. Extremities: No lower extremity edema. No Lacerations. No Rash Neuro: Oriented X 3. No motor deficit. No sensory deficit. Moving all extremities. No slurred speech. CN 2 through 12 grossly intact Psych: calm, cooperative, normal affect Course Course Course Narrative: Patient's initial blood pressure 209/92, patient takes amlodipine and atenolol. Patient has no chest pain, shortness of breath, headache. CT scan negative for any acute pathology including dissection or AAA Patient was given 1 dose of p.o. tramadol. Patient is ambulatory, patient will be returning to the custodial Two prescriptions were accidentally sent to the patient's pharmacy. Patient should take 5 mg of amlodipine. Eventually, if necessary, it can be increased to 10 mg Medical Decision Making Imaging Data CT scan of the chest, abdomen pelvis, head and cervical spine: Radiologist's impression: CHEST: Lung: The lungs are clear without focal opacity or nodule. Mediastinum: A large hiatal hernia is present with the entirety of the stomach the chest. Heart size normal. Extensive coronary calcifications are seen. ? No hilar or mediastinal lymphadenopathy. The diagnosis of dissection is not possible to make a study was performed without IV contrast. No calcified intimal flaps are seen. No aortic aneurysm is seen. Pericardium/Pleura: No significant effusion. No pleural mass or thickening. Chest Wall/Axilla: Unremarkable ABDOMEN/PELVIS: Peritoneal Space: No significant free air or free fluid identified. Liver, Gallbladder, Biliary Tree: The liver is normal in size, shape, and attenuation. No focal hepatic lesion or biliary ductal dilatation is present. The gallbladder is distended with layering stones without obvious pericholecystic inflammatory changes. The portal venous system is not adequately assessed as the exam was without contrast and there is distortion of structures with herniation of the pancreas and adjacent structures into the chest. Pancreas: A large amount of pancreas has also herniated upwards into the chest along with the stomach. Spleen: Unremarkable Adrenal Glands: Unremarkable Kidneys and Ureters: The kidneys are normal in size, shape, and attenuation. No hydronephrosis, hydroureter, or calculi seen. No perinephric stranding. Bladder: Unremarkable Gastrointestinal Tract: See discussion above regarding stomach within chest. Extensive diverticular changes are present in the sigmoid colon with scattered diverticula seen throughout the remainder of the colon there is no evidence of diverticulitis. The small and large bowel are unremarkable. The appendix is not seen with certainty but there is no evidence of appendicitis. Abdominal Wall: No significant hernia is appreciated. Lymph Nodes: No retroperitoneal lymphadenopathy Vascular: Marked calcific changes present in the aorta and iliofemoral vessels with ectasia without gross aneurysm.. The IVC appears unremarkable. PELVIC VISCERA: Surgically removed. OSSEUS STRUCTURES: Marked degenerative changes are noted in the throughout the spine. There is unchanged superior endplate compression of the L1 vertebral body. No bony destructive lesions are seen. CT/CT chest wo con IMPRESSION: 1.? The study not adequate to exclude aortic dissection as it was done without contrast. There is atherosclerotic disease but no aneurysm seen. 2.? Large diaphragmatic hernia with stomach portion of the pancreas in the chest. 3.? Distended gallbladder with cholelithiasis without obvious inflammatory changes. 4.? Extensive sigmoid diverticulosis without diverticulitis. ? Fleischner guidelines were followed. Critical Care Time Critical Care Time Critical Care Time: Yes Total Critical Care Time: 30 Attestation: I have personally provided critical care time. Time includes review of lab data, radiology results, discussion with consultants, and monitoring for potential decompensation. Intervention performed as documented. Discharge Plan Discharge Clinical Impression: Pain in thoracic spine, Hypertension Patient Disposition: Home, Self-Care Instructions: Chronic Hypertension (ED), Back Pain (ED) Additional Instructions: Two prescriptions were accidentally sent to your pharmacy. You should take 5 mg of amlodipine. Eventually, if necessary, it can be increased to 10 mg, which can be advised by your primary care physician. Please follow-up with your primary care physician tomorrow. If you have any worsening or new symptoms, please return to the emergency room or call 911 Prescriptions: New amlodipine 10 mg tablet 10 mg PO DAILY Qty: 30 0RF amlodipine 5 mg tablet 5 mg PO DAILY Qty: 30 0RF Rx Instructions: Please increase your dose of amlodipine to 5 mg daily tramadol 50 mg tablet 25 mg PO BID PRN (Reason: pain) Qty: 4 0RF No [facility] buspirone 10 mg tablet 1 tab PO BID cefuroxime axetil 250 mg tablet 250 mg PO BID Qty: 3 0RF amlodipine 2.5 mg Tablet 2.5 mg PO DAILY Qty: 30 0RF Protocol: Hold for SBP< HOLD for SBP < : 90 levothyroxine 100 mcg capsule 100 mcg PO DAILY Qty: 30 0RF
[2022-05-12 16:33] VITALS: BP 203/83; PULSE 59; RESP 20; TEMP 36.9; O2SAT 96
[2022-05-12] MEDS: amLODIPine Besylate 10 MG TABLET PO (16:56)
[2022-05-12 17:55] VITALS: BP 186/84; PULSE 56; O2SAT 95
--- NOTE | 2022-05-12 21:22 | PC.NURSE ---
Pt complained of nausea and then started to vomit shortly afterwards. Provider informed. Provider gave verbal order to give 4 mg PO zofran for nausea.
[2022-05-12] MEDS: Ondansetron ODT 4 MG TAB.RAPDIS TRANSLINGU (21:25)
[2022-05-12 22:54] VITALS: BP 187/82; PULSE 75; RESP 15; O2SAT 94
--- NOTE | 2022-05-12 23:00 | PC.NURSE ---
Tramadol wasted after being dropped on floor. Patient is stating she does not have pain.
--- NOTE | 2022-05-12 23:25 | PC.NURSE ---
This US/Pct called [facility] at 2300 and spoke with Tania for a BLS transfer back to the [facility] in [place] per . ETA of 30 minutes. RN and Charge Nurse aware
== END 2022-05-12 23:54 | disposition home or self-care (01) ==
PROVIDERS: Emergency Provider Emergency Medicine; PCP Family Medicine
DX: Z04.3 Encounter for examination and observation following other accident (principal); M54.6 Pain in thoracic spine; I10 Essential (primary) hypertension; F03.90 Unspecified dementia, unspecified severity, without behavioral disturbance, psychotic disturbance, mood disturbance, and anxiety; Z91.81 History of falling
CPT/HCPCS: 70450; 71250; 72070; 72125; 74176; 99284

== ENCOUNTER 2022-07-21 11:54 | Outpatient (REF) | payer MEDICARE, MEDICAID, SELFPAY ==
[2022-07-21 13:53] LABS: MANUAL DIFF FLAG NO
[2022-07-21 14:01] LABS: Basophils Percent Auto 0.8 % (0-2); Eosinophils Absolute Auto 0.1 X10*3/uL (0.0-0.4); Eosinophils Percent Auto 1.7 % (0-4); Hematocrit 36.3 % (37.0-47.0); Hemoglobin 12.8 g/dl (12.0-16.0); Imm Gran Abs Auto 0.01 X10*3/uL (0.00-0.03); Imm Gran Pct Auto 0.2 % (0.0-0.4); Lymphocytes Absolute Auto 1.6 X10*3/uL (1.2-4.9); Lymphocytes Percent Auto 32.8 % (20-40); Mean Corpuscular HGB Conc 35.3 g/dl (31.0-35.0); Mean Corpuscular Hemoglobin 34.3 pg (27.0-33.0); Mean Corpuscular Volume 97.3 fL (80.0-98.0); Monocytes Absolute Auto 0.5 X10*3/uL (0.1-1.2); Monocytes Percent Auto 11.1 % (2-11); Neutrophils Absolute Auto 2.6 x10*3/uL (2.0-8.3); Neutrophils Percent Auto 53.4 % (45-73); Platelet Count 170 X10*3/uL (160-400); Red Blood Count 3.73 X10*6/uL (4.20-5.50); Red Cell Distribution Width 12.2 % (11.0-16.0); White Blood Count 4.8 X10*3/uL (4.8-10.8)
[2022-07-21 14:21] LABS: Alanine Aminotransferase 10 U/L (0-31); Albumin Level 3.9 g/dL (3.5-5.0); Alkaline Phosphatase 83 U/L (39-117); Anion Gap 12 (12-20); Aspartate Amino Transferase 18 U/L (5-31); Bilirubin Total 0.7 mg/dL (0.0-1.0); Blood Urea Nitrogen 16 mg/dL (9-16); Calcium 8.9 mg/dL (8.4-10.2); Carbon Dioxide 26 mmol/L (22-29); Chloride 107 mmol/L (96-108); Estimated Glomerular Filt Rate > 60; Glucose Random 109 mg/dL (60-115); Potassium 4.3 mmol/L (3.3-5.1); Sodium 141 mmol/L (135-145); Total Protein 6.3 g/dL (6.5-8.0)
[2022-07-21 14:45] LABS: Free T4 (Free Thyroxine) 1.62 ng/dL (0.71-1.85); Thyroid Stimulating Hormone < 0.01 uIU/mL (0.32-4.0)
== END 2022-07-21 11:55 | disposition home or self-care (01) ==
LOC: HO.10HDL 11:54
PROVIDERS: Visit Provider Internal Medicine Medical Oncology
DX: E78.5 Hyperlipidemia, unspecified (principal); E03.9 Hypothyroidism, unspecified; I10 Essential (primary) hypertension
CPT/HCPCS: 36415; 80053; 84439; 84443; 85025

== ENCOUNTER 2023-03-20 22:52 | Emergency (ER) | payer MEDICARE, MEDICAID, SELFPAY ==
--- NOTE | ~2023-03-20 | CT_ITS ---
Examination: CT brain and CT cervical spine without contrast. CLINICAL INDICATION: Fall. COMPARISON: CT cervical spine and brain 05/12/2022. TECHNIQUE: 5 mm thin axial and reformatted 2 mm thin sagittal and coronal images of brain were obtained. Subsequently 3 mm thin axial and reformatted 2 mm thin sagittal and coronal images of cervical spine were obtained. DLP [id number]. This CT examination was performed using dose optimization technique as appropriate, variously including the following: Automated exposure control Adjustment of MA and/or KV according to patient size(this includes techniques or standardized protocols for targeted exams where dose is matched to indication/reason for exam; extremities or head. Use of iterative reconstruction techniques. FINDINGS: Brain: There is no acute intra-axial, extra-axial bleed, masses or midline shift. There is no acute infarction evolution. There is no edema. There is mild periventricular hypodensity in both cerebral hemispheres without mass effect. There is moderate cerebellar atrophy. The lateral ventricles are symmetrical but enlarged and so are the cortical sulci. Bone windows reveal no calvarial abnormality. The paranasal sinuses and mastoid air cells are well-aerated. Cervical spine: There is mild levoscoliosis of cervical spine. Straightening of cervical lordosis. There is loss of disc at virtually at every disc level. There is bony fusion of C3 C3 and C4 vertebra and grade 1 anterolisthesis of C4 over C5 and C7 over T1 vertebra. There are cystic changes at the base of dense C2 vertebra simulating fracture. The C1-C2 alignment is maintained in spite of scoliotic appearance of these cervical spine. There is mild ventral and posterior spondylosis throughout cervical spine No visible acute fracture, dislocation or subluxation seen. No aggressive lytic or sclerotic process seen. Mild degenerative facet joint arthropathy seen throughout cervical spine most prominent at the C3 to-C3, C3-C4, C4-C5 and C5-C6 disc levels more so on the right than left. The central airways widely patent. The thyroid lobes are symmetrical and normal. The lung apices are clear.. The prevertebral and the paravertebral soft tissues are normal... CT/CT cervical spine wo IV con IMPRESSION: 1. No acute intracranial process seen. 2. Age-related cerebral volume loss with chronic small vessel ischemic changes. 3. Chronic cerebellar atrophy. No change in the CT brain from last exam 05/12/2022. 5. There is mild straightening of cervical lordosis with mild levoscoliosis. There are degenerative disc changes at every disc level and listhesis as described above. There is bony fusion of C3 and C4 vertebra. No acute fracture or dislocation seen. There are degenerative disc changes, spondylosis and facet joint arthropathy. No major change from the last exam.
[2023-03-20 22:56] VITALS: BP 144/78; PULSE 64; O2SAT 97
[2023-03-20 22:58] VITALS: BP 154/83; PULSE 63; RESP 15; TEMP 36.8; O2SAT 96
[2023-03-20 23:22] VITALS: BP 154/83; PULSE 61; RESP 18; TEMP 36.9; O2SAT 99; BMI 20.5
[2023-03-20 23:30] VITALS: BP 154/83; PULSE 61; RESP 16; TEMP 36.9
--- NOTE | 2023-03-20 23:39 | ED.FALL ---
HPI - Fall General Chief Complaint: Fall Stated Complaint: fall Time Seen by Provider: 03/20/23 23:38 Source: patient and EMS Mode of arrival: EMS History of Present Illness HPI Narrative: Patient with dementia came from care home for unwitnessed fall patient denies any injury in cervical collar on arrival stable vital no loss of consciousness no chest pain/ palpitation patient with dementia limited history Related Data Home Medications Medication Instructions Recorded Confirmed buspirone 10 mg tablet 1 tab PO BID 03/27/21 03/27/21 Previous Rx's Medication Instructions Recorded amlodipine 2.5 mg tablet 2.5 mg PO DAILY #30 tabs 03/30/21 cefuroxime axetil 250 mg tablet 250 mg PO BID #3 tabs 03/30/21 levothyroxine 100 mcg capsule 100 mcg PO DAILY #30 caps 03/30/21 amlodipine 10 mg tablet 10 mg PO DAILY #30 tabs 05/12/22 amlodipine 5 mg tablet 5 mg PO DAILY #30 tabs 05/12/22 tramadol 50 mg tablet 25 mg PO BID PRN pain #4 tabs 05/12/22 Allergies Allergy/AdvReac Type Severity Reaction Status Date / Time Sulfa (Sulfonamide Allergy Mild NAUSEA & Verified 09/29/20 17:26 Antibiotics) VOMITING Review of Systems Review of Systems: Yes all other systems are reviewed and are negative [facility] Past Medical History Medical History (Updated 03/21/23 @ 01:22 by Mark Lucas MD) Dementia Hypertension Hypothyroidism Psoriasis Social History Social History Household Members: None Housing: Apartment Do you presently have visiting nurse or other home services: Yes Alcohol intake: never Patient Tobacco Use Status: Never used Tobacco Smoked in Last 30 Days: No Advance Directives: No Advance Directives Information Provided: Yes service: No Current occupational status: retired Physical Exam Vital Signs: Vital Signs: Last Vital Signs Temp 97.5 F 03/21/23 00:52 Pulse 61 03/20/23 23:30 Resp 18 03/21/23 00:52 BP 142/82 H 03/21/23 00:52 Pulse Ox 97 03/21/23 00:52 O2 Del Method Room Air 03/21/23 00:52 BMI result Body Mass Index 20.5 Appearance: Alert. Oriented 1-2. No acute distress. Eyes: PERRLA, No Nystagmus ENT: Pharynx normal. Oral Mucosa moist AT NC Neck: Normal inspection. Neck supple. Cervical collar in place no midline tenderness CVS: Normal heart rate and rhythm. Pulses normal. Respiratory: No respiratory distress. Equal air entry bilateral, no wheezing/rales/rhonchi Abdomen: Soft and nontender. Bowel sounds are present, no mass palpable, no CVA tenderness Skin: Skin warm and dry. Normal skin color. Normal skin turgor. Extremities: No lower extremity edema. No calf tenderness stable pelvis with good range of hips movement Neuro: Oriented 1-2 No motor deficit. No sensory deficit.No cerebellar signs , cranial nerves II-XII intact Medical Decision Making Medical Decision Making MDM Narrative: Patient's CT scan of the head and C-spine negative, ambulatory in the ED in steady gait with 1 assist discharge patient back to care home Radiology Impression Discussion of test interpretation with radiology: I have reviewed the radiologist's reading. Radiologist Impression: CT/CT head/brain wo IV con IMPRESSION: 1.? No acute intracranial process seen. 2.? Age-related cerebral volume loss with chronic small vessel ischemic changes. 3.? Chronic cerebellar atrophy. No change in the CT brain from last exam 05/12/2022. ? 5. There is mild straightening of cervical lordosis with mild levoscoliosis. There are degenerative disc changes at every disc level and listhesis as described above. There is bony fusion of C3 and C4 vertebra. No acute fracture or dislocation seen. There are degenerative disc changes, spondylosis and facet joint arthropathy. No major change from the last exam. Discharge Plan Discharge Clinical Impression: Fall Patient Disposition: Xfer SNF Transfer Details: Patient had CT and C-spine CT negative for acute Instructions: Fall Prevention for Older Adults (ED) Additional Instructions: Care and cautions as advised Prescriptions: No [facility] buspirone 10 mg tablet 1 tab PO BID cefuroxime axetil 250 mg tablet 250 mg PO BID Qty: 3 0RF amlodipine 2.5 mg Tablet 2.5 mg PO DAILY Qty: 30 0RF Protocol: Hold for SBP< HOLD for SBP < : 90 levothyroxine 100 mcg capsule 100 mcg PO DAILY Qty: 30 0RF amlodipine 10 mg tablet 10 mg PO DAILY Qty: 30 0RF amlodipine 5 mg tablet 5 mg PO DAILY Qty: 30 0RF Rx Instructions: Please increase your dose of amlodipine to 5 mg daily tramadol 50 mg tablet 25 mg PO BID PRN (Reason: pain) Qty: 4 0RF
--- NOTE | 2023-03-21 00:29 | PC.NURSE ---
patient in bed with eyes open patient have no complaints of pain at this time patient will continue to be monitored for safety
[2023-03-21 00:52] VITALS: BP 142/82; RESP 18; TEMP 36.4; O2SAT 97
--- NOTE | 2023-03-21 00:53 | PC.NURSE ---
patient received in bed with at the bedside patient stated he is in pain 03/05 patient is waiting to be seen by the doctor patient will continue to be monitored for safety
--- NOTE | 2023-03-21 01:01 | MHC.EDTECH ---
c-collar removed per dr caballero
--- NOTE | 2023-03-21 01:28 | PC.NURSE ---
patient was assisted to the bathroom to void patient had no issues ambulating patient will continue to be monitored for safety
--- NOTE | 2023-03-21 01:29 | PC.NURSE ---
patient in the process of being sent back to her facility patient was medically cleared patient is going to be transported back by the ambulance facility will be called to be updated
== END 2023-03-21 02:29 | disposition other institution (70) ==
PROVIDERS: Emergency Provider Internal Medicine; PCP Family Medicine
DX: M54.2 Cervicalgia (principal); R51.9 Headache, unspecified; Z79.899 Other long term (current) drug therapy
CPT/HCPCS: 70450; 72125; 99284

== ENCOUNTER 2023-05-11 08:14 | Emergency (ER) | payer MEDICARE, MEDICAID, SELFPAY ==
--- NOTE | ~2023-05-11 | CT_ITS ---
EXAMINATION: CT HEAD WITHOUT CONTRAST CLINICAL INFORMATION: Head pain status post fall. COMPARISON: Head CT scan dated 03/21/2023. TECHNIQUE: Contiguous axial imaging was performed from the skull base to vertex without intravenous administration of contrast. Coronal and sagittal reformatted images were obtained. This CT examination was performed using dose optimization techniques as appropriate, variously including the following: *Automated exposure control *Adjustment of mA and/or kV according to patient size (this includes techniques or standardized protocols for targeted exams where dose is matched to indication/reason for exam; i.e. extremities or head) *Use of iterative reconstruction technique DLP: 636.72 mGy-cm FINDINGS: There is mild to moderate widening of the cortical sulci and associated ventriculomegaly. The lateral ventricles are symmetrical. Incidental patent cava septum pellucidum. The third and fourth ventricles are in their normal midline position. The basilar and prepontine cisterns are unremarkable. Mild periventricular microvascular changes are seen. There is no acute intra or extracerebral abnormality. There is no mass effect or midline shift. Sections through the bony calvarium are unremarkable. The orbits are intact. The paranasal sinuses are clear. The mastoid air cells are clear. CT/CT head/brain wo IV con IMPRESSION: No acute intracranial pathology.
--- NOTE | ~2023-05-11 | XR_ITS ---
EXAMINATION: XR HIP, RIGHT CLINICAL INFORMATION: Right hip pain status post fall. COMPARISON: None available. TECHNIQUE: Two views of the right hip. FINDINGS: Mild bilateral hip degenerative joint changes are seen. There is no acute fracture or dislocation. The bony pelvis is intact. The soft tissues are unremarkable. XR/XR hip RT w PEL1V IMPRESSION: Mild bilateral hip osteoporosis arthritis. No acute fracture.
--- NOTE | ~2023-05-11 | XR_ITS ---
EXAMINATION: XR CHEST CLINICAL INFORMATION: Chest pain. COMPARISON: 07/19/2017 chest radiographs. TECHNIQUE: 2 views of the chest were obtained. FINDINGS: The lungs are clear. The heart and mediastinal structures are unremarkable. There is a large hiatal hernia. Moderate to severe glenohumeral degenerative joint changes are seen bilaterally. XR/XR chest 2V IMPRESSION: 1. No acute cardiopulmonary process. 2. Large hiatal hernia.
--- NOTE | ~2023-05-11 | CT_ITS ---
EXAMINATION: CT CERVICAL SPINE WITHOUT CONTRAST CLINICAL INFORMATION: Cervical spine tenderness status post fall. COMPARISON: CT scan of the cervical spine dated 03/20/2023. TECHNIQUE: Multiple axial images of the cervical spine were obtained without the administration of intravenous contrast. Coronal and sagittal reformatted images were obtained. This CT examination was performed using dose optimization techniques as appropriate, variously including the following: *Automated exposure control *Adjustment of mA and/or kV according to patient size (this includes techniques or standardized protocols for targeted exams where dose is matched to indication/reason for exam; i.e. extremities or head) *Use of iterative reconstruction technique DLP: 224 mGy-cm FINDINGS: There is straightening of the normal cervical lordosis. Moderate to severe multilevel degenerative disc disease is seen. Osseous fusion of C3 and C4 is again seen. Grade 1 anterolisthesis is seen at C4-C5 and C7-T1 without significant change. Severe degenerative changes are noted at the odontoid articulation without significant change. The neural foramina are patent. Mild to moderate bilateral facet arthropathy is seen. The spinous and transverse processes are intact. Mild cervical levoscoliosis is noted. The cervical soft tissues are unremarkable. Mild to moderate atherosclerosis is seen at the level of the right carotid bulb. No lymphadenopathy. The thyroid gland is unremarkable. The visualized lung apices are unremarkable. CT/CT cervical spine wo IV con IMPRESSION: Multilevel degenerative changes as detailed above without significant change. No acute abnormality or change.
[2023-05-11 08:18] VITALS: BP 164/84; PULSE 64; O2SAT 96
[2023-05-11 08:19] VITALS: BP 162/70; PULSE 64; RESP 19; TEMP 36.6; O2SAT 95; BMI 24.5
--- NOTE | 2023-05-11 08:27 | ECG_ITS ---
Test Reason : question syncope Blood Pressure : / mmHG Vent. Rate : 063 BPM Atrial Rate : 063 BPM P-R Int : 182 ms QRS Dur : 076 ms QT Int : 420 ms P-R-T Axes : 053 -50 053 degrees QTc Int : 429 ms Normal sinus rhythm Left anterior fascicular block RSR' or QR pattern in V1 suggests right ventricular conduction delay Abnormal ECG When compared with ECG of 19-JUL-2017 11:41, No significant change was found Referred By: Generic ED Physician Electronically Signed By:TESSA HSU
[2023-05-11 08:34] LABS: Glucose, Whole Blood 118 mg/dL (60-115)
[2023-05-11 08:52] LABS: MANUAL DIFF FLAG NO
--- NOTE | 2023-05-11 08:56 | ED_ITS ---
HPI - Fall General Chief Complaint: Fall Stated Complaint: Fall this AM per EMS Time Seen by Provider: 05/11/23 08:22 Source: patient, family and EMS Mode of arrival: EMS Limitations: altered mental status History of Present Illness HPI Narrative: 87 yo female with history of dementia, HTN, hypothyroidism from the [facility] (assisted living memory care unit) after an unwitnessed fall this morning. Patient unable to provide reason for fall. She reports this morning she had some sharp chest discomfort while in bed but this is resolved. She denies pre-fall symptoms of dizziness, chest pain ,shortness of breath, palpitations, headache. Found by another resident on the ground. Denies prolonged downtime. Patient reports that she does recall that she was getting up trying to get to the bathroom. She does report some urinary frequency and urgency. Family reports that the last time she had a fall she also had a urinary tract infection. Related Data Home Medications Medication Instructions Recorded Confirmed buspirone 10 mg tablet 1 tab PO BID 03/27/21 03/27/21 Previous Rx's Medication Instructions Recorded amlodipine 2.5 mg tablet 2.5 mg PO DAILY #30 tabs 03/30/21 cefuroxime axetil 250 mg tablet 250 mg PO BID #3 tabs 03/30/21 levothyroxine 100 mcg capsule 100 mcg PO DAILY #30 caps 03/30/21 amlodipine 10 mg tablet 10 mg PO DAILY #30 tabs 05/12/22 amlodipine 5 mg tablet 5 mg PO DAILY #30 tabs 05/12/22 tramadol 50 mg tablet 25 mg PO BID PRN pain #4 tabs 05/12/22 cefuroxime axetil 250 mg tablet 250 mg PO BID #14 tabs 05/11/23 Allergies Allergy/AdvReac Type Severity Reaction Status Date / Time Sulfa (Sulfonamide Allergy Mild NAUSEA & Verified 09/29/20 17:26 Antibiotics) VOMITING Review of Systems Review of Systems: Yes all other systems are reviewed and are negative Constitutional: Constitutional: Reports no additional constitutional complaints, Denies body ache(s), Denies chills, Denies fever(s), Denies headach e(s) and Denies weakness Eyes: Eyes: Reports no additional eye complaints and Denies change in vision ENT: Reports system reviewed and no additional complaints, except as documented, Denies dizziness, Denies headache(s), Denies nasal congestion, Denies nasal discharge and Denies neck pain Cardiovascular: Cardiovascular: Reports no additional cardiovascular com plaints, Reports chest pain, Denies leg edema and Denies dyspnea Respiratory: Respiratory: Reports no additional respiratory complaints, Denies cough and Denies dyspnea Gastrointestinal: Gastrointestinal: Reports no additional gastrointestinal complaints, Denies abdominal pain, Denies diarrhea, Denies nausea and Denies vomiting Genitourinary: Genitourinary: Reports no additional female genitourinary complaints and Denies urinary incontinence Musculoskeletal: Musculoskeletal: Reports no additional musculoskeletal complaints, Denies back pain, Denies arthralgias, Denies joint swelling, Denies neck pain, Denies numbness and Denies tingling Integumentary/Breasts: Skin/Breast: Reports system reviewed and no additional complaints, except as docu and Denies rash Neurologic: Reports system reviewed and no additional complaints, except as documented, Reports confusion, Denies dizziness, Denies headache(s), Denies numbness, Denies tingling and Denies weakness Psychiatric: Psychiatric: Reports confusion COUNTS INCLUDE 234 BEDS AT THE [facility] Past Medical History Attestation statement: The following information was validated with the patient. Source: old records reviewed Medical History Dementia Hypertension Hypothyroidism Psoriasis Social History Social History Household Members: None Housing: Apartment Do you presently have visiting nurse or other home services: Yes Alcohol intake: never Patient Tobacco Use Status: Never used Tobacco Advance Directives: No service: No Current occupational status: retired Physical Exam 2 Vital Signs: Vital Signs: Last Vital Signs Temp 98 F 05/11/23 08:19 Pulse 70 05/11/23 13:01 Resp 17 05/11/23 13:01 BP 168/66 H 05/11/23 13:01 Pulse Ox 97 05/11/23 13:01 O2 Del Method Room Air 05/11/23 08:19 BMI result Body Mass Index 24.5 Const: General: cooperative, healthy appearing, comfortable, no acute distress and confusion Orientation/consciousness: confusion Limitations: no limitations HEENT: Head: Yes normal to inspection, No Dhillon's sign and No raccoon eyes Ears: hearing grossly normal bilaterally General nose exam: Normal external nose present Face and sinus: Yes normal facial exam Mouth: Normal oral and palatal mucosa present Throat: Yes posterior oropharynx normal Eyes: General: appearance normal, both eyes and all related structures Pupils: Equal, round and reactive pupils present Neck: Other: Mild cervical tenderness the midline with no step-offs deformities Neck: Yes normal visual inspection and Yes full ROM Chest: Chest palpation & inspection: normal inspection of the chest Resp: Effort & Inspection: normal respiratory effort Auscultation: clear to auscultation bilaterally Cardio: Rate: regular rate Rhythm: regular rhythm Peripheral pulses: Peripheral pulses 2+ throughout GI: Inspection: Yes normal to inspection Palpation (GI): Soft to palpation and nontender Auscultation: normal bowel sounds Back/Spine/Pelvis: Thoracic/Lumbar Spine: thoracic and lumbar spine normal to inspection Skin: General skin exam: no rashes or lesions noted Neuro: General: moves all extremities, no focal motor deficits, normal sensation to monofilament and confusion Cranial nerves: Yes Equal, round and reactive pupils present Extrem: Other: Patient is normal abduction and abduction of both hips. No pelvic instability or tenderness on palpation General: Yes normal to inspection, Yes no pedal edema and Yes no calf tenderness Course Course Course Narrative: UA is consistent with UTI. Patient received 1 g of Rocephin. Patient's imaging is unremarkable. Her labs are unremarkable. Due to complaints of chest pain which occurred this morning will plan for repeat troponin. Initial troponin is negative. EKG is non ischemic. Reevaluation(s) Reevaluation #1: -troponin x 2 negative, Low concern for ACS. Family comfortable taking patient back to memory care unit assisted living. Reviewed worrisome signs and symptoms of when to return to the emergency room. Comfortable plan for discharge home Medications Administered Discontinued Medications Generic Name Dose Route Start Last Admin Trade Name Freq PRN Reason Stop Dose Admin Ceftriaxone Sodium 1 gm/ 50 mls @ 100 mls/hr 05/11/23 09:35 05/11/23 09:51 Sodium Chloride IV 05/11/23 10:04 100 mls/hr ONCE ONE Administration Medical Decision Making Medical Decision Making [facility] Narrative: 87-year-old female here after an unwitnessed fall while at a Memory Care Assisted Living. HPI is unclear Patient does report some chest pain earlier this morning with waking which is now resolved. She denies exertional chest pain or any pre fall symptoms. Patient not a reliable history Has mild cervical tenderness on exam. Normal neuro, with exception of confusion, with history of dementia, seems to be at baseline with family at the bedside. While nursing was changed to the patient she did report some right buttocks pain. She has no pelvic instability or tenderness on exam full range of motion of both hips. Will check labs, UA, orthostatics, EKG, CT head and cervical spine, chest x-ray and pelvis x-ray Differential Diagnosis Differential Diagnoses: The differential diagnosis associated with the presentation includes Mechanical fall ACS Orthostatic hypotension Fracture, contusion, strain Electrolyte abnormality, anemia Urinary tract infection Lab Data MDM Lab Attestation statement: I reviewed the patient's lab results. 05/11/23 08:49 05/11/23 08:49 Labs: Lab Results 05/11/23 05/11/23 05/11/23 Range/Units 08:21 08:49 08:49 WBC 6.7 (4.8-10.8) X10*3/uL RBC 4.19 L (4.20-5.50) X10*6/uL Hgb 14.2 (12.0-16.0) g/dl Hct 40.2 (37.0-47.0) % MCV 95.9 (80.0-98.0) fL MCH 33.9 H (27.0-33.0) pg MCHC 35.3 H (31.0-35.0) g/dl RDW 12.3 (11.0-16.0) % Plt Count 138 L (160-400) X10*3/uL MPV 8.3 L (9.4-12.3) fL Immature Gran % (Auto) 0.1 (0.0-0.4) % Neut % (Auto) 72.4 (45-73) % Lymph % (Auto) 14.5 L (20-40) % [place] % (Auto) 11.6 H (2-11) % Eos % (Auto) 1.0 (0-4) % Baso % (Auto) 0.4 (0-2) % Lymph # (Auto) 1.0 L (1.2-4.9) X10*3/uL [place] # (Auto) 0.8 (0.1-1.2) X10*3/uL Eos # (Auto) 0.1 (0.0-0.4) X10*3/uL Baso # (Auto) 0.0 (0.0-0.2) X10*3/uL Abs Immat Gran (auto) 0.01 (0.00-0.03) X10*3/uL Absolute Neuts (auto) 4.9 (2.0-8.3) x10*3/uL Absolute Nucleated RBC 0.000 (0.0-0.012) X10*3/uL Nucleated RBC % (auto) 0.0 (0.0-0.2) /100WBC PT 11.7 (11.1-13.3) SEC INR 1.0 (0.9-1.1) Sodium (135-145) mmol/L Potassium (3.3-5.1) mmol/L Chloride (96-108) mmol/L Carbon Dioxide (22-29) mmol/L Anion Gap (12-20) BUN (9-16) mg/dL Creatinine (0.5-1.4) mg/dL Estim Creat Clear Calc Estimated GFR POC Glucose 118 H (60-115) mg/dL Random Glucose (60-115) mg/dL Calcium (8.4-10.2) mg/dL Magnesium (1.6-2.6) mg/dL Total Creatine Kinase (26-140) U/L Troponin I High Sens (<3.5-17.0) ng/L Urine Color Urine Appearance Urine pH (5.0-9.0) Ur Specific [place] (1.005-1.025) Urine Protein (Neg-Trace) mg/dL Urine Glucose (UA) (Negative) mg/dL Urine Ketones (Negative) mg/dL Urine Blood (Negative) Urine Nitrite (Negative) Ur Leukocyte Esterase (Negative) Urine RBC (0-2) /HPF Urine WBC (0-5) /HPF Ur Squamous Epith Cells (0-2) /HPF Urine Bacteria (None Seen) Hyaline Casts (0-2) /LPF 05/11/23 05/11/23 05/11/23 Range/Units 08:49 08:49 09:26 WBC (4.8-10.8) X10*3/uL RBC (4.20-5.50) X10*6/uL Hgb (12.0-16.0) g/dl Hct (37.0-47.0) % MCV (80.0-98.0) fL MCH (27.0-33.0) pg MCHC (31.0-35.0) g/dl RDW (11.0-16.0) % Plt Count (160-400) X10*3/uL MPV (9.4-12.3) fL Immature Gran % (Auto) (0.0-0.4) % Neut % (Auto) (45-73) % Lymph % (Auto) (20-40) % [place] % (Auto) (2-11) % Eos % (Auto) (0-4) % Baso % (Auto) (0-2) % Lymph # (Auto) (1.2-4.9) X10*3/uL [place] # (Auto) (0.1-1.2) X10*3/uL Eos # (Auto) (0.0-0.4) X10*3/uL Baso # (Auto) (0.0-0.2) X10*3/uL Abs Immat Gran (auto) (0.00-0.03) X10*3/uL Absolute Neuts (auto) (2.0-8.3) x10*3/uL Absolute Nucleated RBC (0.0-0.012) X10*3/uL Nucleated RBC % (auto) (0.0-0.2) /100WBC PT (11.1-13.3) SEC INR (0.9-1.1) Sodium 141 (135-145) mmol/L Potassium 4.1 (3.3-5.1) mmol/L Chloride 107 (96-108) mmol/L Carbon Dioxide 28 (22-29) mmol/L Anion Gap 10 L (12-20) BUN 12 (9-16) mg/dL Creatinine 0.80 (0.5-1.4) mg/dL Estim Creat Clear Calc 39.9 Estimated GFR > 60 POC Glucose (60-115) mg/dL Random Glucose 111 (60-115) mg/dL Calcium 9.3 (8.4-10.2) mg/dL Magnesium 2.3 (1.6-2.6) mg/dL Total Creatine Kinase 263 H (26-140) U/L Troponin I High Sens 9.3 (<3.5-17.0) ng/L Urine Color Yellow Urine Appearance Cloudy Urine pH 6.5 (5.0-9.0) Ur Specific [place] 1.010 (1.005-1.025) Urine Protein Negative (Neg-Trace) mg/dL Urine Glucose (UA) Negative (Negative) mg/dL Urine Ketones Negative (Negative) mg/dL Urine Blood Trace H (Negative) Urine Nitrite Positive H (Negative) Ur Leukocyte Esterase Moderate (2+) H (Negative) Urine RBC 0-2 (0-2) /HPF Urine WBC >50 H (0-5) /HPF Ur Squamous Epith Cells 3-5 (0-2) /HPF Urine Bacteria 4+ (None Seen) Hyaline Casts 0-2 (0-2) /LPF 05/11/23 Range/Units 12:03 WBC (4.8-10.8) X10*3/uL RBC (4.20-5.50) X10*6/uL Hgb (12.0-16.0) g/dl Hct (37.0-47.0) % MCV (80.0-98.0) fL MCH (27.0-33.0) pg MCHC (31.0-35.0) g/dl RDW (11.0-16.0) % Plt Count (160-400) X10*3/uL MPV (9.4-12.3) fL Immature Gran % (Auto) (0.0-0.4) % Neut % (Auto) (45-73) % Lymph % (Auto) (20-40) % [place] % (Auto) (2-11) % Eos % (Auto) (0-4) % Baso % (Auto) (0-2) % Lymph # (Auto) (1.2-4.9) X10*3/uL [place] # (Auto) (0.1-1.2) X10*3/uL Eos # (Auto) (0.0-0.4) X10*3/uL Baso # (Auto) (0.0-0.2) X10*3/uL Abs Immat Gran (auto) (0.00-0.03) X10*3/uL Absolute Neuts (auto) (2.0-8.3) x10*3/uL Absolute Nucleated RBC (0.0-0.012) X10*3/uL Nucleated RBC % (auto) (0.0-0.2) /100WBC PT (11.1-13.3) SEC INR (0.9-1.1) Sodium (135-145) mmol/L Potassium (3.3-5.1) mmol/L Chloride (96-108) mmol/L Carbon Dioxide (22-29) mmol/L Anion Gap (12-20) BUN (9-16) mg/dL Creatinine (0.5-1.4) mg/dL Estim Creat Clear Calc Estimated GFR POC Glucose (60-115) mg/dL Random Glucose (60-115) mg/dL Calcium (8.4-10.2) mg/dL Magnesium (1.6-2.6) mg/dL Total Creatine Kinase (26-140) U/L Troponin I High Sens 9.5 (<3.5-17.0) ng/L Urine Color Urine Appearance Urine pH (5.0-9.0) Ur Specific [place] (1.005-1.025) Urine Protein (Neg-Trace) mg/dL Urine Glucose (UA) (Negative) mg/dL Urine Ketones (Negative) mg/dL Urine Blood (Negative) Urine Nitrite (Negative) Ur Leukocyte Esterase (Negative) Urine RBC (0-2) /HPF Urine WBC (0-5) /HPF Ur Squamous Epith Cells (0-2) /HPF Urine Bacteria (None Seen) Hyaline Casts (0-2) /LPF Independent Interpretation I performed an independent interpretation of an: EKG, Plain X-Ray and CT Scan Interpretation: And highly reviewed the EKG which shows normal sinus rhythm with a rate of 63, normal NC, normal QRS, normal QT I independently reviewed the chest x-ray, hip x-ray, CT head and CT cervical spine and agree with radiologist's report. Radiology Impression Discussion of test interpretation with radiology: I have reviewed the radiologist's reading. Radiologist Impression: [address] [address] [address] Scan Report Signed Patient: Jaimie Bacon MR#: [id number] : 1935 Acct:[id number] Age/Sex: 87 / F ADM Date: 05/11/23 Loc: HO.ED Attending Dr: Ordering Physician: Suri Santana NP Date of Service: 05/11/23 Procedure(s): CT cervical spine wo IV con Accession Number(s): [id number] cc: Suri Santana NP~ EXAMINATION: CT CERVICAL SPINE WITHOUT CONTRAST CLINICAL INFORMATION: Cervical spine tenderness status post fall.? COMPARISON: CT scan of the cervical spine dated 03/20/2023. TECHNIQUE: Multiple axial images of the cervical spine were obtained without the administration of intravenous contrast. Coronal and sagittal reformatted images were obtained.? This CT examination was performed using dose optimization techniques as appropriate, variously including the following: *Automated exposure control *Adjustment of mA and/or kV according to patient size (this includes techniques or standardized protocols for targeted exams where dose is matched to indication/reason for exam; i.e. extremities or head) *Use of iterative reconstruction technique DLP: 224 mGy-cm FINDINGS: There is straightening of the normal cervical lordosis. Moderate to severe multilevel degenerative disc disease is seen. Osseous fusion of C3 and C4 is again seen. Grade 1 anterolisthesis is seen at C4-C5 and C7-T1 without significant change. Severe degenerative changes are noted at the odontoid articulation without significant change. The neural foramina are patent. Mild to moderate bilateral facet arthropathy is seen. The spinous and transverse processes are intact. Mild cervical levoscoliosis is noted. The cervical soft tissues are unremarkable. Mild to moderate atherosclerosis is seen at the level of the right carotid bulb. No lymphadenopathy. The thyroid gland is unremarkable. The visualized lung apices are unremarkable.? CT/CT cervical spine wo IV con IMPRESSION: Multilevel degenerative changes as detailed above without significant change. No acute abnormality or change.? ?[address] [address] XRay Report Signed Patient: Jaimie Bacon MR#: [id number] : 1935 Acct:[id number] Age/Sex: 87 / F ADM Date: 05/11/23 Loc: HO.ED Attending Dr: Ordering Physician: Suri Santana NP Date of Service: 05/11/23 Procedure(s): XR hip RT w PEL1V Accession Number(s): [id number] cc: Suri Santana [employer]~ EXAMINATION: XR HIP, RIGHT CLINICAL INFORMATION: Right hip pain status post fall. COMPARISON: None available. TECHNIQUE: Two views of the right hip. FINDINGS: Mild bilateral hip degenerative joint changes are seen. There is no acute fracture or dislocation. The bony pelvis is intact. The soft tissues are unremarkable. XR/XR hip RT w PEL1V IMPRESSION: Mild bilateral hip osteoporosis arthritis. No acute fracture. ? [address] [address] XRay Report Signed Patient: Jaimie Bacon MR#: [id number] : 1935 Acct:[id number] Age/Sex: 87 / F ADM Date: 05/11/23 Loc: HO.ED Attending Dr: Ordering Physician: Suri Santana NP Date of Service: 05/11/23 Procedure(s): XR chest 2V Accession Number(s): [id number] cc: Suri Santana [employer]~ EXAMINATION: XR CHEST CLINICAL INFORMATION: Chest pain. COMPARISON: 07/19/2017 chest radiographs. TECHNIQUE: 2 views of the chest were obtained. FINDINGS: The lungs are clear. The heart and mediastinal structures are unremarkable. There is a large hiatal hernia. Moderate to severe glenohumeral degenerative joint changes are seen bilaterally. XR/XR chest 2V IMPRESSION: 1. No acute cardiopulmonary process. 2. Large hiatal hernia. There is mild to moderate widening of the cortical sulci and associated ventriculomegaly. The lateral ventricles are symmetrical. Incidental patent cava septum pellucidum. The third and fourth ventricles are in their normal midline position. The basilar and prepontine cisterns are unremarkable. Mild periventricular microvascular changes are seen. There is no acute intra or extracerebral abnormality. There is no mass effect or midline shift. Sections through the bony calvarium are unremarkable. The orbits are intact. The paranasal sinuses are clear. The mastoid air cells are clear. CT/CT head/brain wo IV con IMPRESSION: No acute intracranial pathology. Independent Historian Clinical information obtained from an independent historian. History obtained from or confirmed by: EMS and Other Clinical information was obtained from EMS and the son who is at the bedside Discharge Plan Discharge Clinical Impression: Acute UTI Patient Disposition: Home, Self-Care Instructions: Fall Prevention for Older Adults (ED), Urinary Tract Infection in Older Adults (ED) Additional Instructions: Start the antibiotic tomorrow Change positions slowly Increase fluids, rest Prescriptions: New cefuroxime axetil 250 mg tablet 250 mg PO BID Qty: 14 0RF No Action buspirone 10 mg tablet 1 tab PO BID cefuroxime axetil 250 mg tablet 250 mg PO BID Qty: 3 0RF amlodipine 2.5 mg Tablet 2.5 mg PO DAILY Qty: 30 0RF Protocol: Hold for SBP< HOLD for SBP < : 90 levothyroxine 100 mcg capsule 100 mcg PO DAILY Qty: 30 0RF amlodipine 10 mg tablet 10 mg PO DAILY Qty: 30 0RF amlodipine 5 mg tablet 5 mg PO DAILY Qty: 30 0RF Rx Instructions: Please increase your dose of amlodipine to 5 mg daily tramadol 50 mg tablet 25 mg PO BID PRN (Reason: pain) Qty: 4 0RF Referrals: Physician,Unknown J [Primary Care Provider] - 10 days Interventions: ED Discharge Assessment Last Done: 05/11/23 13:03 Discharge Date/Time: 05/11/23 13:03
[2023-05-11 08:58] LABS: Basophils Percent Auto 0.4 % (0-2); Eosinophils Absolute Auto 0.1 X10*3/uL (0.0-0.4); Hematocrit 40.2 % (37.0-47.0); Hemoglobin 14.2 g/dl (12.0-16.0); Imm Gran Abs Auto 0.01 X10*3/uL (0.00-0.03); Imm Gran Pct Auto 0.1 % (0.0-0.4); Lymphocytes Percent Auto 14.5 % (20-40); Mean Corpuscular HGB Conc 35.3 g/dl (31.0-35.0); Mean Corpuscular Hemoglobin 33.9 pg (27.0-33.0); Mean Corpuscular Volume 95.9 fL (80.0-98.0); Mean Platelet Volume 8.3 fL (9.4-12.3); Monocytes Absolute Auto 0.8 X10*3/uL (0.1-1.2); Monocytes Percent Auto 11.6 % (2-11); Neutrophils Absolute Auto 4.9 x10*3/uL (2.0-8.3); Neutrophils Percent Auto 72.4 % (45-73); Platelet Count 138 X10*3/uL (160-400); Red Blood Count 4.19 X10*6/uL (4.20-5.50); Red Cell Distribution Width 12.3 % (11.0-16.0); White Blood Count 6.7 X10*3/uL (4.8-10.8)
--- NOTE | 2023-05-11 09:00 | PC.NURSE ---
reports dizziness and fall, denies pain initially, cervical tenderness on palp, collars do not fit and would hyperextend her neck, MD Santos and KRISH dyer aware and towel wrapped around neck for support, pt and son both aware of importance of not moving her neck, c/o r hip pain w attempt to urinate on bedpan, xrays added
[2023-05-11 09:01] LABS: Prothrombin Time 11.7 SEC (11.1-13.3)
[2023-05-11 09:06] LABS: Anion Gap 10 (12-20); Blood Urea Nitrogen 12 mg/dL (9-16); Calcium 9.3 mg/dL (8.4-10.2); Carbon Dioxide 28 mmol/L (22-29); Chloride 107 mmol/L (96-108); Creatinine Clr Calc Pharmacy 39.9; Estimated Glomerular Filt Rate > 60; Glucose Random 111 mg/dL (60-115); Potassium 4.1 mmol/L (3.3-5.1); Sodium 141 mmol/L (135-145)
[2023-05-11 09:13] LABS: Troponin-I High Sensitivity 9.3 ng/L (<3.5-17.0)
[2023-05-11 09:33] LABS: Appearance Urine Cloudy; Color Urine Yellow; Glucose Urine UA Negative (Negative); Leukocyte Esterase Urine Moderate (2+) (Negative); Nitrite Urine Positive (Negative); PH 6.5 (5.0-9.0); UMIC TRIGGER UACC YES; Urine Blood Trace (Negative); Urine Ketones Negative (Negative); Urine Protein Negative (Neg-Trace)
[2023-05-11 09:38] LABS: Bacteria Urine 4+ (None Seen); Hyaline Casts Urine 0-2 /LPF (0-2); RBC Urine 0-2 /HPF (0-2); UACC Culture Trigger YES; WBC Urine >50 /HPF (0-5)
[2023-05-11] MEDS: cefTRIAXone sodium 1 GM in 0.9 % Sodium Chloride 50 ML IV (09:51)
[2023-05-11 10:00] VITALS: BP 143/76; PULSE 80; RESP 19; O2SAT 98
[2023-05-11 10:21] LABS: Magnesium 2.3 mg/dL (1.6-2.6)
[2023-05-11 11:02] VITALS: BP 140/68; BP 151/88; PULSE 63; PULSE 72
[2023-05-11 11:03] VITALS: BP 136/92; PULSE 74
[2023-05-11 12:28] LABS: Troponin-I High Sensitivity 9.5 ng/L (<3.5-17.0)
[2023-05-11 13:01] VITALS: BP 168/66; PULSE 70; RESP 17; O2SAT 97
== END 2023-05-11 13:03 | disposition home or self-care (01) ==
PROVIDERS: Nurse Practitioner Family; Emergency Provider Emergency Medicine
DX: N39.0 Urinary tract infection, site not specified (principal); R35.0 Frequency of micturition; R07.89 Other chest pain; R51.9 Headache, unspecified; M54.2 Cervicalgia; M54.50 Low back pain, unspecified; R10.2 Pelvic and perineal pain; R94.31 Abnormal electrocardiogram [ECG] [EKG]; Z79.899 Other long term (current) drug therapy
CPT/HCPCS: 36415; 70450; 71046; 72125; 73502; 80048; 81001; 82550; 82947; 83735; 84484; 85025; 85610; 87086; 87088; 87186; 93005; 99284; J0696

== ENCOUNTER 2023-08-11 10:02 | Emergency (ER) | payer MEDICARE, MEDICAID, SELFPAY ==
[2023-08-11 10:12] VITALS: BP 112/60; BP 164/75; PULSE 60; PULSE 66; RESP 16; TEMP 36.9; O2SAT 96; O2SAT 97
--- NOTE | 2023-08-11 10:15 | ED_ITS ---
HPI - General Adult General Chief complaint: Skin/Abscess/Foreign Body Stated complaint: abscess under armpit from assisted living Time Seen by Provider: 08/11/23 10:08 Source: patient, EMS and RN notes reviewed Mode of arrival: EMS Limitations: altered mental status History of Present Illness HPI narrative: Patient is an 88-year-old female with history of dementia, HTN, hypothyroidism, psoriasis presenting to the emergency department from assisted living for abscess to left axilla and upper arm. Patient reports area is tender. No fevers or drainage reported by staff. MD complaint: abscess Location: left (axilla) Severity: moderate Quality: aching Pain Consistency: intermittent Relieving factors: rest Exacerbating factors: movement and other (Palpation) Associated symptoms: denies other symptoms Treatments prior to arrival: none Related Data Home Medications Medication Instructions Recorded Confirmed buspirone 10 mg tablet 1 tab PO BID 03/27/21 03/27/21 Previous Rx's Medication Instructions Recorded amlodipine 2.5 mg tablet 2.5 mg PO DAILY #30 tabs 03/30/21 cefuroxime axetil 250 mg tablet 250 mg PO BID #3 tabs 03/30/21 levothyroxine 100 mcg capsule 100 mcg PO DAILY #30 caps 03/30/21 amlodipine 10 mg tablet 10 mg PO DAILY #30 tabs 05/12/22 amlodipine 5 mg tablet 5 mg PO DAILY #30 tabs 05/12/22 tramadol 50 mg tablet 25 mg (1/2 x 50 mg) PO BID PRN 05/12/22 pain #4 tabs cefuroxime axetil 250 mg tablet 250 mg PO BID #14 tabs 05/11/23 doxycycline hyclate 100 mg tablet 100 mg PO BID #14 tabs 08/11/23 Allergies Allergy/AdvReac Type Severity Reaction Status Date / Time Sulfa (Sulfonamide Allergy Mild NAUSEA & Verified 09/29/20 17:26 Antibiotics) VOMITING Review of Systems Review of Systems: As per HPI. Yes all other systems are reviewed and are negative PMFSH Past Medical History Medical History Dementia Hypertension Hypothyroidism Psoriasis Social History Social History Household Members: None Housing: Apartment Do you presently have visiting nurse or other home services: Yes Alcohol intake: never Patient Tobacco Use Status: Never used Tobacco Advance Directives: No service: No Current occupational status: retired Physical Exam ED Vital Signs: Vital Signs - 24 hr 08/11/23 10:12 Temperature 98.4 F Pulse Rate 60 Respiratory Rate 16 Blood Pressure 164/75 H Pulse Oximetry 97 Oxygen Delivery Method Room Air BMI result Body Mass Index 0.2 Vital signs have been reviewed and appear to be correct. Blood pressure elevated. Heart rate normal. Respiratory rate normal. Temperature normal. Oxygen saturation normal. Const General: cooperative, no acute distress, alert and awake Orientation/consciousness: oriented to person Limitations: altered mental status HENMT Head: Yes normocephalic and Yes atraumatic Ears: hearing grossly normal bilaterally Mouth: Normal oral and palatal mucosa present Throat: Yes posterior oropharynx normal Eyes Pupils: Equal, round and reactive pupils present Neck Neck: Yes normal visual inspection, Yes full ROM and Yes supple Chest Other: erythematous, fluctuant pustule L axilla draining purulent fluid Breast/axilla palpation: palpation of the axillae normal (tenderness L axilla) and axillary lymphadenopathy not noted Resp Effort & Inspection: normal respiratory effort Auscultation: clear to auscultation bilaterally Cardio Rate: regular rate Rhythm: regular rhythm Heart sounds: S1 normal heart sound present and S2 normal heart sound present GI Inspection: Yes normal to inspection Palpation (GI): Soft to palpation and nontender Auscultation: normoactive bowel sounds Skin Other: abscess as noted under chest Neuro General: oriented to person, tone normal and moves all extremities Cranial nerves: Yes Equal, round and reactive pupils present Cognition (Neuro): abnormal cognition (baseline) Extrem General: Yes normal to inspection, Yes full ROM and Yes capillary refill normal Left upper extremity: shoulder/upper arm Details: tenderness (medial proximal upper arm) and other (erythematous fluctuant pustule medial upper arm) Psych Appearance: well kempt Medications Administered Discontinued Medications Generic Name Dose Route Start Last Admin Trade Name Freq PRN Reason Stop Dose Admin Lidocaine HCl 5 ml 08/11/23 10:13 08/11/23 11:07 Lidocaine Hcl 1 % Mpf 5 Ml Vial INFILTRATI 08/11/23 10:14 5 ml ONCE ONE Administration Procedures Abscess I/D Site: upper extremity and other (axilla) Side (if applicable): left Local Anesthetic: lidocaine 1% Amount of anesthesia used (mL): 5 Technique: incised with blade Amount of fluid expressed (mL): 2 Sent for culture/gram staining?: No Irrigation: Yes Packing used?: none Complications: pain Medical Decision Making Medical Decision Making MDM Narrative: Patient is an 88-year-old female with history of dementia, HTN, hypothyroidism, psoriasis presenting to the emergency department from assisted living for abscess to left axilla and upper arm. On exam patient is awake, alert, confused at baseline, BP elevated, VS otherwise WNL, afebrile, normal neurological exam without focal deficits, physical exam findings as above. Given reported symptoms and physical exam findings, initial differential includes abscess, cellulitis. Areas incised and drained as per procedure note. Dressings applied. Will start patient on antibiotics and will refer to general surgery if symptoms do not improve. Son at bedside and denies history of prior abscesses for patient but he reports personal history of abscesses. Discussed with son that dressings will need to be changed daily and areas assessed for signs of infection and patient should return if these occur. Case management consult placed for patient to have VNA come for daily dressing changes. Area should be covered with a clean, dry dressing and assessed for infection daily. Return precautions discussed with son. Son verbalized understanding of and agreement with plan. Differential Diagnosis Differential Diagnoses: The differential diagnosis associated with the presentation includes As per MDM. Independent Historian Clinical information obtained from an independent historian. History obtained from or confirmed by: Other (son) External Record Review External record reviewed: Inpatient record, Office record and Outpatient record Prescription Management I considered prescription management with: Antibiotic Chronic Conditions Patient?s care impacted by: Other (dementia) Discharge Plan Discharge Clinical Impression: Abscess of skin or subcutaneous tissue Patient Disposition: Home, Self-Care Instructions: Doxycycline (By mouth), Abscess (ED), Abscess Follow-up (ED), Abscess Incision and Drainage (DC) Additional Instructions: You were evaluated in the ER for abscesses. Please keep the area surrounding the abscesses clean and dry. You were given a prescription for antibiotics, please take the antibiotics as directed for the full course of the medication. The abscesses were drained in the emergency department today. You should perform a skin check of the areas daily and assess for signs of infection. You should cover the area with a clean, dry dressing and change the dressing daily. You can use Tylenol or ibuprofen per package directions as needed for pain. If necessary, you can alternate these medications so that you take one medication every 3 hours. For instance, at noon take ibuprofen, then at 3:00 p.m. take Tylenol, then at 6:00 p.m. take ibuprofen. Please schedule an appointment with your primary care physician as soon as possible for follow-up. Return to the emergency department if you experience fevers greater than 100.4? F, increased in area of redness or swelling, increasing amount of discharge from the area, increased tenderness around the area, or any other concerning symptoms. You are being referred to general surgery, as you may need surgical removal. Prescriptions: New doxycycline hyclate 100 mg tablet 100 mg PO BID Qty: 14 0RF No Action buspirone 10 mg tablet 1 tab PO BID cefuroxime axetil 250 mg tablet 250 mg PO BID Qty: 3 0RF amlodipine 2.5 mg Tablet 2.5 mg PO DAILY Qty: 30 0RF Protocol: Hold for SBP< HOLD for SBP < : 90 levothyroxine 100 mcg capsule 100 mcg PO DAILY Qty: 30 0RF amlodipine 10 mg tablet 10 mg PO DAILY Qty: 30 0RF amlodipine 5 mg tablet 5 mg PO DAILY Qty: 30 0RF Rx Instructions: Please increase your dose of amlodipine to 5 mg daily tramadol 50 mg tablet 25 mg PO BID PRN (Reason: pain) Qty: 4 0RF cefuroxime axetil 250 mg tablet 250 mg PO BID Qty: 14 0RF Referrals: [facility] [place] General Surgeons [Provider Group]
[2023-08-11] MEDS: Lidocaine HCl 1 % MPF 5 ML VIAL INFILTRATI (11:07)
--- NOTE | 2023-08-11 11:57 | MHC.CM.ED ---
Received case management consult from Alix RUTHERFORD. Patient lives at [facility] and will need a VNA for daily wound dressings and assessment. Patient and son Arvind aware referral will need to be broadcasted to see who has the staffing to accommodate. Referral made via [facility]. [facility] is able to accept patient. Arvind will bring patient back to [facility]. Continue to monitor for d/c needs.
== END 2023-08-11 11:57 | disposition home or self-care (01) ==
PROVIDERS: Emergency Provider Emergency Medicine
DX: L02.412 Cutaneous abscess of left axilla (principal); Z79.899 Other long term (current) drug therapy
CPT/HCPCS: 10060; 99282; 99284

== ENCOUNTER 2023-09-23 17:06 | Emergency (ER) | payer MEDICARE, MEDICAID, SELFPAY ==
--- NOTE | ~2023-09-23 | CT_ITS ---
EXAMINATION: CT HEAD WITHOUT CONTRAST CLINICAL INFORMATION: Altered mental status. COMPARISON: CT brain 05/11/2023. TECHNIQUE: Contiguous axial imaging was performed from the skull base to vertex without intravenous administration of contrast. This CT examination was performed using dose optimization techniques as appropriate, variously including the following: *Automated exposure control *Adjustment of mA and/or kV according to patient size (this includes techniques or standardized protocols for targeted exams where dose is matched to indication/reason for exam; i.e. extremities or head) *Use of iterative reconstruction technique DLP: 563 mGy-cm FINDINGS: There is no acute intra-axial, extra-axial bleed, masses or midline shift. There is no acute infarction in evolution. There is no edema. The aviles to white matter differentiation is maintained normal. The lateral ventricles are symmetrical in size and configuration without enlargement. The aviles to white matter differentiation is maintained normal. Bone windows reveal no calvarial abnormality. Bilateral paranasal sinuses and mastoid air cells are well-aerated. There is no scalp soft tissue abnormality seen. CT/CT head/brain wo IV con IMPRESSION: No acute intracranial process seen.
--- NOTE | ~2023-09-23 | XR_ITS ---
EXAMINATION: CHEST 2 VIEWS CLINICAL INFORMATION: mental status changes. COMPARISON: 05/11/2023. TECHNIQUE: PA and lateral views of the chest obtained. FINDINGS: The lungs are well expanded. No focal infiltrate, effusion, edema, or pneumothorax. Cardiac and mediastinal silhouettes demonstrate a large hiatal hernia again noted. The aorta is tortuous. Extensive degenerative changes in the shoulders. No acute bony abnormality seen XR/XR chest 2V IMPRESSION: Chronic appearing changes similar to the prior study. Large hiatal hernia.
[2023-09-23 17:18] VITALS: BP 122/56; PULSE 65; O2SAT 96
[2023-09-23 17:20] VITALS: BP 124/60; PULSE 65; RESP 17; TEMP 36.8; O2SAT 96; BMI 23.8
--- NOTE | 2023-09-23 17:22 | ED_ITS ---
HPI - General Adult General Chief complaint: Altered Mental Status Stated complaint: Hx dementia, more confused than usual Time Seen by Provider: 09/23/23 17:21 Source: patient, EMS and RN notes reviewed Limitations: other (Dementia) History of Present Illness HPI narrative: 88-year-old female with a history of dementia, hypertension and hypothyroidism, presents from nursing facility for evaluation of increased confusion. According to staff, patient appeared to be more confused than normal. She was apparently making a bed that was for her son. She is normally oriented to person according to EMS. Currently, the patient has no physical complaints and does not know why she is in the emergency department. She denies any chest pain or shortness of breath. History is limited at this time. Related Data Home Medications Medication Instructions Recorded Confirmed atenolol 25 mg tablet 25 mg PO BID 09/23/23 09/23/23 levothyroxine 112 mcg tablet 112 mcg PO QAM 09/23/23 09/23/23 Allergies Allergy/AdvReac Type Severity Reaction Status Date / Time Sulfa (Sulfonamide Allergy Mild NAUSEA & Verified 09/29/20 17:26 Antibiotics) VOMITING Review of Systems 2 Review of Systems: Yes Unobtainable due to mental status (Denies any pain, will not fully participate in review of systems.) [facility] Past Medical History Source: unable to obtain and nursing notes reviewed Medical History Dementia Psoriasis Hypothyroidism Hypertension Social History Social History Household Members: None Housing: Apartment Do you presently have visiting nurse or other home services: Yes Unable to assess alcohol history related to: Unable to respond Alcohol intake: never Patient Tobacco Use Status: Never used Tobacco Smoked in Last 30 Days: No Use of substances other than those prescribed or required for medical reasons: No Advance Directives: Yes Advance Directives on File: Yes Advance Directives Date on File: 09/23/23 service: No Current occupational status: retired Physical Exam ED Vital Signs: Vital Signs - 24 hr 09/23/23 17:20 Temperature 98.2 F Pulse Rate 65 Respiratory Rate 17 Blood Pressure 124/60 Pulse Oximetry 96 Oxygen Delivery Method Room Air BMI result Body Mass Index 23.8 Const General: alert and awake Eyes Other: Right eye strabismus Resp Auscultation: clear to auscultation bilaterally Cardio Rate: regular rate Rhythm: regular rhythm GI Other: Abdomen is soft and nontender throughout. No peritoneal signs. No CVAT. No guarding. Extrem Other: Fruit Or Nut Picker is 5/5 bilaterally. Full range of motion of all joints. Course Course Course Narrative: Reviewed all labs and imaging, no acute process. Patient remains hemodynamically stable. Given that there are no acute findings at this time, patient will be discharged back to her facility. Medical Decision Making Medical Decision Making [facility] Narrative: 88-year-old female with a history of dementia, hypertension, hypothyroidism, presents for evaluation from nursing facility of mental status changes. Patient is currently resting comfortably and has no physical complaints. Check labs, imaging, EKG and UA. Differential Diagnosis Differential Diagnoses: The differential diagnosis associated with the presentation includes Dementia UTI Pneumonia Viral syndrome CVA Metabolic abnormality Admission/Observation Consideration of admission/observation: Escalation of care including admission/observation considered Consideration for admission if medically warranted. Lab Data [facility] Lab Attestation statement: I reviewed the patient's lab results. 09/23/23 19:08 09/23/23 19:08 Labs: Lab Results 09/23/23 09/23/23 Range/Units 18:08 19:08 WBC 4.6 L (4.8-10.8) X10*3/uL RBC 4.10 L (4.20-5.50) X10*6/uL Hgb 13.5 (12.0-16.0) g/dl Hct 39.2 (37.0-47.0) % MCV 95.6 (80.0-98.0) fL MCH 32.9 (27.0-33.0) pg MCHC 34.4 (31.0-35.0) g/dl RDW 12.4 (11.0-16.0) % Plt Count 152 L (160-400) X10*3/uL MPV 8.4 L (9.4-12.3) fL Immature Gran % (Auto) 0.2 (0.0-0.4) % Neut % (Auto) 50.2 (45-73) % Lymph % (Auto) 32.0 (20-40) % [place] % (Auto) 15.1 H (2-11) % Eos % (Auto) 1.8 (0-4) % Baso % (Auto) 0.7 (0-2) % Lymph # (Auto) 1.5 (1.2-4.9) X10*3/uL [place] # (Auto) 0.7 (0.1-1.2) X10*3/uL Eos # (Auto) 0.1 (0.0-0.4) X10*3/uL Baso # (Auto) 0.0 (0.0-0.2) X10*3/uL Abs Immat Gran (auto) 0.01 (0.00-0.03) X10*3/uL Absolute Neuts (auto) 2.3 (2.0-8.3) x10*3/uL Absolute Nucleated RBC 0.000 (0.0-0.012) X10*3/uL Nucleated RBC % (auto) 0.0 (0.0-0.2) /100WBC Sodium 141 (135-145) mmol/L Potassium 3.8 (3.3-5.1) mmol/L Chloride 106 (96-108) mmol/L Carbon Dioxide 29 (22-29) mmol/L Anion Gap 10 L (12-20) BUN 15 (9-16) mg/dL Creatinine 0.85 (0.5-1.4) mg/dL Estim Creat Clear Calc 36.8 Estimated GFR > 60 Random Glucose 109 (60-115) mg/dL Calcium 9.3 (8.4-10.2) mg/dL Total Bilirubin 1.2 H (0.0-1.0) mg/dL AST 18 (5-31) U/L ALT 9 (0-31) U/L Alkaline Phosphatase 82 (39-117) U/L Total Protein 7.0 (6.5-8.0) g/dL Albumin 4.1 (3.5-5.0) g/dL Lipase 18 (8-78) U/L TSH < 0.01 L (0.32-4.0) uIU/mL Free T4 1.42 (0.71-1.85) ng/dL Urine Color Yellow Urine Appearance Clear Urine pH 5.5 (5.0-9.0) Ur Specific [employer] 1.010 (1.005-1.025) Urine Protein Negative (Neg-Trace) mg/dL Urine Glucose (UA) Negative (Negative) mg/dL Urine Ketones Negative (Negative) mg/dL Urine Blood Negative (Negative) Urine Nitrite Negative (Negative) Ur Leukocyte Esterase Negative (Negative) Ethyl Alcohol < 10 mg/dL Influenza Type A (PCR) NEGATIVE (Negative) Influenza Type B (PCR) NEGATIVE (Negative) RSV RNA Qual (PCR) NEGATIVE (Negative) SARS-CoV-2 RNA (RT-PCR) NEGATIVE (Negative) Independent Interpretation I performed an independent interpretation of an: EKG (First-degree block at 90 beats per minute without any acute ischemic changes.) Radiology Impression Discussion of test interpretation with radiology: I have reviewed the radiologist's reading. Radiologist Impression: [address] [address] [address] Scan Report Signed Patient: Jaimie Bacon MR#: [id number] : 1935 Acct:[id number] Age/Sex: 88 / F ADM Date: 09/23/23 Loc: .ED Attending Dr: Ordering Physician: Dion Manzano Date of Service: 09/23/23 Procedure(s): CT head/brain wo IV con Accession Number(s): [id number] cc: BERTHA OCHOA MD; Dion Manzano~ EXAMINATION: CT HEAD WITHOUT CONTRAST CLINICAL INFORMATION: Altered mental status. COMPARISON: CT brain 05/11/2023. TECHNIQUE: Contiguous axial imaging was performed from the skull base to vertex without intravenous administration of contrast. This CT examination was performed using dose optimization techniques as appropriate, variously including the following: *Automated exposure control *Adjustment of mA and/or kV according to patient size (this includes techniques or standardized protocols for targeted exams where dose is matched to indication/reason for exam; i.e. extremities or head) *Use of iterative reconstruction technique DLP: 563 mGy-cm FINDINGS: There is no acute intra-axial, extra-axial bleed, masses or midline shift. There is no acute infarction in evolution. There is no edema. The aviles to white matter differentiation is maintained normal. The lateral ventricles are symmetrical in size and configuration without enlargement. The aviles to white matter differentiation is maintained normal. Bone windows reveal no calvarial abnormality. Bilateral paranasal sinuses and mastoid air cells are well-aerated. There is no scalp soft tissue abnormality seen. CT/CT head/brain wo IV con IMPRESSION: No acute intracranial process seen. Dictated By: Clark Snyder MD Signed By: <Electronically signed by Clark Snyder MD in OV> 09/23/23 181 DD/ 1754 TD/TT: Tool Shaper Setup Operator: VALENTE [address] [address] XRay Report Signed Patient: Jaimie Bacon MR#: [id number] : 1935 Acct:[id number] Age/Sex: 88 / F ADM Date: 09/23/23 Loc: HO.ED Attending Dr: Ordering Physician: Dion Manzano Date of Service: 09/23/23 Procedure(s): XR chest 2V Accession Number(s): [id number] cc: Dion Manzano~ EXAMINATION: CHEST 2 VIEWS CLINICAL INFORMATION: mental status changes. COMPARISON: 05/11/2023. TECHNIQUE: PA and lateral views of the chest obtained. FINDINGS: The lungs are well expanded. No focal infiltrate, effusion, edema, or pneumothorax. Cardiac and mediastinal silhouettes demonstrate a large hiatal hernia again noted. The aorta is tortuous. Extensive degenerative changes in the shoulders. No acute bony abnormality seen XR/XR chest 2V IMPRESSION: Chronic appearing changes similar to the prior study. Large hiatal hernia. Dictated By: Allan Soriano MD Signed By: <Electronically signed by Allan Soriano MD in OV> 09/23/23 1747 DD/ 1738 TD/TT: Tool Shaper Setup Operator: RAFAEL External Record Review External record reviewed: Inpatient record Chronic Conditions Patient?s care impacted by: Hypertension Discharge Plan Discharge Clinical Impression: Dementia Qualifiers: Dementia behavioral or psychological symptom: unspecified whether behavioral, psychotic, or mood disturbance or anxiety Patient Disposition: Xfer SNF Instructions: Dementia (ED) Additional Instructions: Your blood work today as well as urine test were all within normal ranges. Your chest x-ray and head CT were both negative. Consider adjustment in your levothyroxine. Recommend repeat testing and evaluation by your prescriber. Follow-up with your primary care provider. Call this week to schedule a follow- up appointment. Return to the emergency department if you have any worsening of symptoms, or any concerns. Get well soon! Prescriptions: No Action atenolol 25 mg tablet 25 mg PO BID levothyroxine 112 mcg tablet 112 mcg PO QAM Interventions: ED Discharge Assessment Last Done: 09/23/23 21:08
--- NOTE | 2023-09-23 17:29 | ECG_ITS ---
Test Reason : ALTERED MENTAL STATUS Blood Pressure : / mmHG Vent. Rate : 060 BPM Atrial Rate : 060 BPM P-R Int : 216 ms QRS Dur : 078 ms QT Int : 422 ms P-R-T Axes : 040 -32 040 degrees QTc Int : 422 ms Sinus rhythm with 1st degree A-V block Left axis deviation Abnormal ECG When compared with ECG of 11-MAY-2023 08:28, NV interval has increased Referred By: Dion Manzano Electronically Signed By:VASILE VILLAR
--- NOTE | 2023-09-23 17:53 | PHA.MEDREC ---
Pharmacy Consult ? Medication Reconciliation Pharmacy has completed the medication reconciliation. Patient came with list from the [facility] that match claim history. Kiara PollackD
[2023-09-23 18:18] LABS: Appearance Urine Clear; Color Urine Yellow; Glucose Urine UA Negative (Negative); Leukocyte Esterase Urine Negative (Negative); Nitrite Urine Negative (Negative); PH 5.5 (5.0-9.0); Urine Blood Negative (Negative); Urine Ketones Negative (Negative); Urine Protein Negative (Neg-Trace)
[2023-09-23 19:16] LABS: MANUAL DIFF FLAG NO
[2023-09-23 19:22] LABS: Basophils Percent Auto 0.7 % (0-2); Eosinophils Absolute Auto 0.1 X10*3/uL (0.0-0.4); Eosinophils Percent Auto 1.8 % (0-4); Hematocrit 39.2 % (37.0-47.0); Hemoglobin 13.5 g/dl (12.0-16.0); Imm Gran Abs Auto 0.01 X10*3/uL (0.00-0.03); Imm Gran Pct Auto 0.2 % (0.0-0.4); Lymphocytes Absolute Auto 1.5 X10*3/uL (1.2-4.9); Mean Corpuscular HGB Conc 34.4 g/dl (31.0-35.0); Mean Corpuscular Hemoglobin 32.9 pg (27.0-33.0); Mean Corpuscular Volume 95.6 fL (80.0-98.0); Mean Platelet Volume 8.4 fL (9.4-12.3); Monocytes Absolute Auto 0.7 X10*3/uL (0.1-1.2); Monocytes Percent Auto 15.1 % (2-11); Neutrophils Absolute Auto 2.3 x10*3/uL (2.0-8.3); Neutrophils Percent Auto 50.2 % (45-73); Platelet Count 152 X10*3/uL (160-400); Red Cell Distribution Width 12.4 % (11.0-16.0); White Blood Count 4.6 X10*3/uL (4.8-10.8)
[2023-09-23 19:38] LABS: Alanine Aminotransferase 9 U/L (0-31); Albumin Level 4.1 g/dL (3.5-5.0); Alkaline Phosphatase 82 U/L (39-117); Anion Gap 10 (12-20); Aspartate Amino Transferase 18 U/L (5-31); Bilirubin Total 1.2 mg/dL (0.0-1.0); Blood Urea Nitrogen 15 mg/dL (9-16); Calcium 9.3 mg/dL (8.4-10.2); Carbon Dioxide 29 mmol/L (22-29); Chloride 106 mmol/L (96-108); Creatinine Clr Calc Pharmacy 36.8; Estimated Glomerular Filt Rate > 60; Ethanol < 10 mg/dL; Glucose Random 109 mg/dL (60-115); Lipase 18 U/L (8-78); Potassium 3.8 mmol/L (3.3-5.1); Sodium 141 mmol/L (135-145)
--- NOTE | 2023-09-23 19:58 | PC.NURSE ---
Pt with ultrasound. Plan of care ongoing.
[2023-09-23 19:59] LABS: Influenza A PCR NEGATIVE (Negative); Influenza B PCR NEGATIVE (Negative); Resp Syncy Virus RNA Qual PCR NEGATIVE (Negative); SARS COV2 PCR INHOUSE NEGATIVE (Negative); TSH reflex Free T4 < 0.01 uIU/mL (0.32-4.0)
[2023-09-23 20:42] LABS: Free T4 (Free Thyroxine) 1.42 ng/dL (0.71-1.85)
--- NOTE | 2023-09-23 21:33 | PC.NURSE ---
Pt assisted to the restroom and back into bed. Plan of care ongoing.
== END 2023-09-23 23:00 | disposition skilled nursing facility (03) ==
PROVIDERS: Physician Assistant; Emergency Provider Student in an Organized Health Care Education/Training Program; PCP Family Medicine
DX: F03.90 Unspecified dementia, unspecified severity, without behavioral disturbance, psychotic disturbance, mood disturbance, and anxiety (principal); R41.82 Altered mental status, unspecified; E03.9 Hypothyroidism, unspecified; I10 Essential (primary) hypertension; L40.9 Psoriasis, unspecified; Z20.822 Contact with and (suspected) exposure to COVID-19; Z20.828 Contact with and (suspected) exposure to other viral communicable diseases
CPT/HCPCS: 0241U; 36415; 70450; 71046; 80053; 80307; 81003; 83690; 84439; 84443; 85025; 87040; 93005; 99284

== ENCOUNTER → 2023-09-23 17:29 | Outpatient (BNV) | payer MEDICARE, MEDICAID, SELFPAY | PROVIDERS: Emergency Provider Student in an Organized Health Care Education/Training Program; PCP Family Medicine; Visit Provider Internal Medicine | DX: R94.31 Abnormal electrocardiogram [ECG] [EKG] (principal) | CPT/HCPCS: 93010 ==

== ENCOUNTER 2023-10-17 18:11 | Emergency (ER) | payer MEDICARE, MEDICAID, SELFPAY ==
--- NOTE | ~2023-10-17 | US_ITS ---
EXAMINATION: US ABDOMEN LIMITED CLINICAL INFORMATION: Epigastric pain. Evaluate gallbladder. COMPARISON: None available. TECHNIQUE: Real-time imaging of the right upper quadrant abdominal viscera. FINDINGS: PANCREAS: Not assessed LIVER: Not assessed GALLBLADDER: Layering gallstones and echogenic bile within the contracted gallbladder. No evidence for gallbladder wall thickening or pericholecystic inflammatory change. COMMON BILE DUCT: Normal in caliber measuring 0.2 cm in diameter. RIGHT KIDNEY: Not assessed FREE FLUID: None seen. US/US abdomen limited IMPRESSION: Cholelithiasis without sonographic evidence for acute cholecystitis.
--- NOTE | ~2023-10-17 | XR_ITS ---
EXAMINATION: XR CHEST CLINICAL INFORMATION: Chest pain. COMPARISON: CT chest 05/12/2022 . TECHNIQUE: Frontal view of the chest was obtained. FINDINGS: The lungs are expanded with left basilar atelectasis. Heart size and pulmonary vascularity is normal. There is a large mass in the retrocardiac area with air-fluid level consistent with hiatal hernia. The right paracardiac soft tissue mass is seen. There are bilateral shoulder deformities likely from avascular necrosis or traumatic injuries of humeral head. XR/XR chest 1V IMPRESSION: Large hiatal hernia with likely left basilar atelectasis. Large right paracardiac soft tissue mass likely intrathoracic stomach as seen on previous CT chest 05/12/2022.
[2023-10-17 18:17] VITALS: BP 180/75; PULSE 67; O2SAT 97
[2023-10-17 18:24] VITALS: BP 129/102; PULSE 64; RESP 16; TEMP 37.2; O2SAT 94; BMI 25.8
--- NOTE | 2023-10-17 18:28 | ECG_ITS ---
Test Reason : CHEST PAIN Blood Pressure : / mmHG Vent. Rate : 063 BPM Atrial Rate : 063 BPM P-R Int : 206 ms QRS Dur : 078 ms QT Int : 414 ms P-R-T Axes : 029 -43 030 degrees QTc Int : 423 ms Normal sinus rhythm Left axis deviation Abnormal ECG When compared with ECG of 23-SEP-2023 18:22, No significant change was found Referred By: Suri Young Electronically Signed By:Zi Cummins
[2023-10-17 18:37] VITALS: RESP 16
--- NOTE | 2023-10-17 18:39 | ED_ITS ---
HPI - Chest Pain General Chief Complaint: Chest Pain Stated Complaint: From SNF, CP radiating to L arm, 324mg asa Time Seen by Provider: 10/17/23 18:25 Source: patient and EMS Mode of arrival: EMS Limitations: altered mental status (limited d/t history of dementia ) History of Present Illness HPI narrative: 88-year-old female with a history of dementia, hypertension and hypothyroidism here with complaints bilateral shoulder pain, epigastric pain which began after eating dinner. Patient has a history of dementia. Patient can not recall what she had for dinner. She denies any associated nausea, vomiting, chest pain, diaphoresis. Of note patient has a history of gallstones. Related Data Home Medications Medication Instructions Recorded Confirmed atenolol 25 mg tablet 25 mg PO BID 09/23/23 09/23/23 levothyroxine 112 mcg tablet 112 mcg PO QAM 09/23/23 09/23/23 Previous Rx's Medication Instructions Recorded cephalexin 500 mg capsule 500 mg PO BID #14 caps 10/17/23 Allergies Allergy/AdvReac Type Severity Reaction Status Date / Time Sulfa (Sulfonamide Allergy Mild NAUSEA & Verified 09/29/20 17:26 Antibiotics) VOMITING Review of Systems 2 Review of Systems: Yes Unobtainable due to mental status (limited d/t underlying dementia ) Neurologic: Denies Abnormal speech present [facility] Past Medical History Attestation statement: The following information was validated with the patient. Source: old records reviewed and nursing notes reviewed Medical History Dementia Psoriasis Hypothyroidism Hypertension Social History Social History Household Members: None Housing: Apartment Do you presently have visiting nurse or other home services: Yes Unable to assess alcohol history related to: Unable to respond Alcohol intake: never Patient Tobacco Use Status: Never used Tobacco Smoked in Last 30 Days: No Use of substances other than those prescribed or required for medical reasons: No Advance Directives: No Advance Directives Information Provided: No Advance Directives Date on File: 09/23/23 service: No Current occupational status: retired Physical Exam 2 Vital Signs: Vital Signs: Last Vital Signs Temp 98.9 F 10/17/23 18: Pulse 64 10/17/23 18:24 Resp 16 10/17/23 18:37 BP 129/102 H 10/17/23 18:24 Pulse Ox 94 10/17/23 18:24 O2 Del Method Nasal Cannula 10/17/23 18:24 BMI result Body Mass Index 25.8 Const: General: cooperative, healthy appearing, comfortable and no acute distress Orientation/consciousness: patient oriented x3 Limitations: no limitations HEENT: Head: Yes normal to inspection Ears: hearing grossly normal bilaterally General nose exam: Normal external nose present Face and sinus: Yes normal facial exam Mouth: Normal oral and palatal mucosa present Throat: Yes posterior oropharynx normal Eyes: General: appearance normal, both eyes and all related structures P upils: Equal, round and reactive pupils present Neck: Neck: Yes normal visual inspection Chest: Chest palpation & inspection: normal inspection of the chest Resp: Effort & Inspection: normal respiratory effort Auscultation: clear to auscultation bilaterally Cardio: Rate: regular rate Rhythm: regular rhythm Peripheral pulses: P eripheral pulses 2+ throughout GI: Other: Abdomen is soft, patient has tenderness to the epigastrium with no rebound or guarding normal bowel sounds Inspection: Yes normal to inspection Palpation (GI): Soft to palpation, Tenderness to palpation present (GI) in the epigastrum; with no rebound tenderness and no guarding Auscultation: normal bowel sounds Back/Spine/Pelvis: Thoracic/Lumbar Spine: thoracic and lumbar spine normal to inspection Skin: General skin exam: no rashes or lesions noted Neuro: General: patient oriented x3, no focal motor deficits and normal sensation to monofilament Cranial nerves: Yes Equal, round and reactive pupils present Cognition (Neuro): normal cognition Speech: No Abnormal speech present Gait exam (Neuro): Normal gait present Motor exam (neuro): 5/5 motor strength present throughout Extrem: General: Yes normal to inspection Course Course Course Narrative: Labs are unremarkable. UA is consistent with UTI. Patient be treated with course of antibiotics. Ultrasound shows gallstones with no evidence of cholecystitis. EKG nonischemic, chest x-ray shows no acute finding. Plan for discharge home to the [facility]. Reviewed worrisome symptoms of when to return to the emergency room. Comfortable plan for discharge home Medical Decision Making Medical Decision Making MDM Narrative: 88-year-old female with a history of dementia, hypertension and hypothyroidism here with complaints bilateral shoulder pain, epigastric pain which began after eating dinner. Patient has a history of dementia. Patient can not recall what she had for dinner. She denies any associated nausea, vomiting, chest pain, diaphoresis. Of note patient has a history of gallstones. Patient has epigastric tenderness to palpation with no rebound or guarding. Will obtain labs, EKG, chest x-ray, abdominal ultrasound Differential Diagnosis Differential Diagnoses: The differential diagnosis associated with the presentation includes Acute cholecystitis, cholelithiasis, ACS, low concern for PE, aortic dissection,AAA Admission/Observation Consideration of admission/observation: Escalation of care including admission/observation considered Ultrasound shows gallstones with no evidence of cholecystitis. Patient tolerating p.o., no pain at this time. Nontoxic appearing recommend low-fat diet and follow up outpatient with General surgery as needed. No need for admission for urgent surgical consultation Lab Data MDM Lab Attestation statement: I reviewed the patient's lab results. 10/17/23 19:44 10/17/23 19:44 Labs: Lab Results 10/17/23 10/17/23 10/17/23 Range/Units 19:44 21:06 22:18 WBC 5.8 (4.8-10.8) X10*3/uL RBC 3.88 L (4.20-5.50) X10*6/uL Hgb 13.2 (12.0-16.0) g/dl Hct 38.2 (37.0-47.0) % MCV 98.5 H (80.0-98.0) fL MCH 34.0 H (27.0-33.0) pg MCHC 34.6 (31.0-35.0) g/dl RDW 12.5 (11.0-16.0) % Plt Count 132 L (160-400) X10*3/uL MPV 8.5 L (9.4-12.3) fL Immature Gran % (Auto) 0.2 (0.0-0.4) % Neut % (Auto) 69.9 (45-73) % Lymph % (Auto) 17.7 L (20-40) % [place] % (Auto) 10.5 (2-11) % Eos % (Auto) 1.0 (0-4) % Baso % (Auto) 0.7 (0-2) % Lymph # (Auto) 1.0 L (1.2-4.9) X10*3/uL [place] # (Auto) 0.6 (0.1-1.2) X10*3/uL Eos # (Auto) 0.1 (0.0-0.4) X10*3/uL Baso # (Auto) 0.0 (0.0-0.2) X10*3/uL Abs Immat Gran (auto) 0.01 (0.00-0.03) X10*3/uL Absolute Neuts (auto) 4.1 (2.0-8.3) x10*3/uL Absolute Nucleated RBC 0.000 (0.0-0.012) X10*3/uL Nucleated RBC % (auto) 0.0 (0.0-0.2) /100WBC PT 11.8 (11.1-13.3) SEC INR 1.0 (0.9-1.1) Sodium 142 (135-145) mmol/L Potassium 3.9 (3.3-5.1) mmol/L Chloride 106 (96-108) mmol/L Carbon Dioxide 31 H (22-29) mmol/L Anion Gap 9 L (12-20) BUN 24 H (9-16) mg/dL Creatinine 0.80 (0.5-1.4) mg/dL Estim Creat Clear Calc 43.5 Estimated GFR > 60 Random Glucose 127 H (60-115) mg/dL Calcium 8.9 (8.4-10.2) mg/dL Magnesium 2.3 (1.6-2.6) mg/dL Total Bilirubin 0.6 (0.0-1.0) mg/dL Direct Bilirubin 0.2 (0.0-0.5) mg/dL AST 18 (5-31) U/L ALT 13 (0-31) U/L Alkaline Phosphatase 73 (39-117) U/L Troponin I High Sens 7.7 9.5 (<3.5-17.0) ng/L Total Protein 6.5 (6.5-8.0) g/dL Albumin 3.7 (3.5-5.0) g/dL Urine Color Yellow Urine Appearance Cloudy Urine pH 6.0 (5.0-9.0) Ur Specific [place] 1.025 (1.005-1.025) Urine Protein Negative (Neg-Trace) mg/dL Urine Glucose (UA) Negative (Negative) mg/dL Urine Ketones Negative (Negative) mg/dL Urine Blood Trace H (Negative) Urine Nitrite Negative (Negative) Ur Leukocyte Esterase Moderate (2+) H (Negative) Urine RBC 6-10 H (0-2) /HPF Urine WBC 21-50 H (0-5) /HPF Ur Squamous Epith Cells 11-20 (0-2) /HPF Urine Bacteria 1+ (None Seen) Hyaline Casts 0-2 (0-2) /LPF COVID-19 (VERONICA) Negative (Negative) COVID-19 Clin Com See Note Influenza Type A (CÉSAR) Negative (Negative) Influenza Type B (CÉSAR) Negative (Negative) Influenza A & B Note See Note Independent Interpretation I performed an independent interpretation of an: EKG, Plain X-Ray and Ultrasound Interpretation: I independently reviewed the EKG which shows NSR with rate 63, normal pr, normal qrs, normal qt I independently reviewed the ultrasound/CXR agree with the radiology report Radiology Impression Discussion of test interpretation with radiology: I have reviewed the radiologist's reading. Radiologist Impression: [place] [id number] Ultrasound Report Signed Patient: Jaimie Bacon MR#: [id number] : 1935 Acct:[id number] Age/Sex: 88 / F ADM Date: 10/17/23 Loc: .ED Attending Dr: Ordering Physician: Suri Santana NP Date of Service: 10/17/23 Procedure(s): US abdomen limited Accession Number(s): [id number] cc: BERTHA OCHOA MD; Suri Santana NP~ EXAMINATION: US ABDOMEN LIMITED CLINICAL INFORMATION: Epigastric pain. Evaluate gallbladder. COMPARISON: None available. TECHNIQUE: Real-time imaging of the right upper quadrant abdominal viscera. FINDINGS: PANCREAS: Not assessed LIVER: Not assessed GALLBLADDER: Layering gallstones and echogenic bile within the contracted gallbladder. No evidence for gallbladder wall thickening or pericholecystic inflammatory change. COMMON BILE DUCT: Normal in caliber measuring 0.2 cm in diameter. RIGHT KIDNEY: Not assessed FREE FLUID: None seen. US/US abdomen limited IMPRESSION: Cholelithiasis without sonographic evidence for acute cholecystitis. [address] [address] XRay Report Signed Patient: Jaimie Bacon MR#: [id number] : 1935 Acct:[id number] Age/Sex: 88 / F ADM Date: 10/17/23 Loc: HO.ED Attending Dr: Ordering Physician: Suri Santana NP Date of Service: 10/17/23 Procedure(s): XR chest 1V Accession Number(s): [id number] cc: BERTHA OCHOA MD; Suri Santana NP~ EXAMINATION: XR CHEST CLINICAL INFORMATION: Chest pain. COMPARISON: CT chest 05/12/2022 . TECHNIQUE: Frontal view of the chest was obtained. FINDINGS: The lungs are expanded with left basilar atelectasis. Heart size and pulmonary vascularity is normal. There is a large mass in the retrocardiac area with air-fluid level consistent with hiatal hernia. The right paracardiac soft tissue mass is seen. There are bilateral shoulder deformities likely from avascular necrosis or traumatic injuries of humeral head. XR/XR chest 1V IMPRESSION: Large hiatal hernia with likely left basilar atelectasis. Large right paracardiac soft tissue mass likely intrathoracic stomach as seen on previous CT chest 05/12/2022. Independent Historian Clinical information obtained from an independent historian. History obtained from or confirmed by: EMS Daughter and so Discharge Plan Discharge Clinical Impression: Gallstones, Acute UTI Patient Disposition: Home, Self-Care Instructions: Gallstones (ED), Urinary Tract Infection in Older Adults (ED) Additional Instructions: Low-fat diet Return for severe abdominal pain, vomiting or fever Follow-up with primary care Prescriptions: New cephalexin 500 mg capsule 500 mg PO BID Qty: 14 0RF No Action atenolol 25 mg tablet 25 mg PO BID levothyroxine 112 mcg tablet 112 mcg PO QAM Referrals: Eladio Kennedy MD [Primary Care Provider] - 1 week
[2023-10-17 19:52] LABS: MANUAL DIFF FLAG NO
[2023-10-17 19:53] LABS: Basophils Percent Auto 0.7 % (0-2); Eosinophils Absolute Auto 0.1 X10*3/uL (0.0-0.4); Hematocrit 38.2 % (37.0-47.0); Hemoglobin 13.2 g/dl (12.0-16.0); Imm Gran Abs Auto 0.01 X10*3/uL (0.00-0.03); Imm Gran Pct Auto 0.2 % (0.0-0.4); Lymphocytes Percent Auto 17.7 % (20-40); Mean Corpuscular HGB Conc 34.6 g/dl (31.0-35.0); Mean Corpuscular Volume 98.5 fL (80.0-98.0); Mean Platelet Volume 8.5 fL (9.4-12.3); Monocytes Absolute Auto 0.6 X10*3/uL (0.1-1.2); Monocytes Percent Auto 10.5 % (2-11); Neutrophils Absolute Auto 4.1 x10*3/uL (2.0-8.3); Neutrophils Percent Auto 69.9 % (45-73); Platelet Count 132 X10*3/uL (160-400); Red Blood Count 3.88 X10*6/uL (4.20-5.50); Red Cell Distribution Width 12.5 % (11.0-16.0); White Blood Count 5.8 X10*3/uL (4.8-10.8)
[2023-10-17 20:00] VITALS: PULSE 69
[2023-10-17 20:07] LABS: Prothrombin Time 11.8 SEC (11.1-13.3)
[2023-10-17 20:08] LABS: Alanine Aminotransferase 13 U/L (0-31); Albumin Level 3.7 g/dL (3.5-5.0); Alkaline Phosphatase 73 U/L (39-117); Anion Gap 9 (12-20); Aspartate Amino Transferase 18 U/L (5-31); Bilirubin Direct 0.2 mg/dL (0.0-0.5); Bilirubin Total 0.6 mg/dL (0.0-1.0); Blood Urea Nitrogen 24 mg/dL (9-16); COVID-19 Test Negative (Negative); Calcium 8.9 mg/dL (8.4-10.2); Carbon Dioxide 31 mmol/L (22-29); Chloride 106 mmol/L (96-108); Creatinine Clr Calc Pharmacy 43.5; Estimated Glomerular Filt Rate > 60; Glucose Random 127 mg/dL (60-115); IDNOW Serial# 58CA691E; Magnesium 2.3 mg/dL (1.6-2.6); Potassium 3.9 mmol/L (3.3-5.1); Sodium 142 mmol/L (135-145); Total Protein 6.5 g/dL (6.5-8.0)
[2023-10-17 20:09] LABS: IDNOW Serial# 9DB6401D; Influenza A Negative (Negative); Influenza B2 Negative (Negative)
[2023-10-17 20:15] LABS: Troponin-I High Sensitivity 7.7 ng/L (<3.5-17.0)
[2023-10-17 21:22] LABS: Appearance Urine Cloudy; Color Urine Yellow; Glucose Urine UA Negative (Negative); Leukocyte Esterase Urine Moderate (2+) (Negative); Nitrite Urine Negative (Negative); Specific Gravity - Urine 1.025 (1.005-1.025); UMIC TRIGGER UACC YES; Urine Blood Trace (Negative); Urine Ketones Negative (Negative); Urine Protein Negative (Neg-Trace)
[2023-10-17 21:27] LABS: Bacteria Urine 1+ (None Seen); Hyaline Casts Urine 0-2 /LPF (0-2); UACC Culture Trigger YES; WBC Urine 21-50 /HPF (0-5)
[2023-10-17 22:50] LABS: Troponin-I High Sensitivity 9.5 ng/L (<3.5-17.0)
[2023-10-17] MEDS: cephALEXin 500 MG CAPSULE PO (23:11)
[2023-10-18 00:05] VITALS: BP 133/89; PULSE 67; RESP 17; TEMP 36.7; O2SAT 97
== END 2023-10-18 00:09 | disposition home or self-care (01) ==
PROVIDERS: Nurse Practitioner Family; Emergency Provider Emergency Medicine; PCP Internal Medicine Medical Oncology
DX: K80.20 Calculus of gallbladder without cholecystitis without obstruction (principal); N39.0 Urinary tract infection, site not specified; R41.82 Altered mental status, unspecified; R10.13 Epigastric pain; I10 Essential (primary) hypertension; Z11.52 Encounter for screening for COVID-19; Z79.899 Other long term (current) drug therapy
CPT/HCPCS: 36415; 51701; 71045; 76705; 80048; 80076; 81001; 83735; 84484; 85025; 85610; 87086; 87502; 87635; 93005; 99284; 99285

== ENCOUNTER → 2023-10-17 18:28 | Outpatient (BNV) | payer MEDICARE, MEDICAID, SELFPAY | PROVIDERS: Emergency Provider Emergency Medicine; PCP Internal Medicine Medical Oncology; Visit Provider Internal Medicine Cardiovascular Disease | DX: R94.31 Abnormal electrocardiogram [ECG] [EKG] (principal) | CPT/HCPCS: 93010 ==

== ENCOUNTER 2024-06-10 11:40 | Emergency (ER) | payer MEDICARE, MEDICAID, SELFPAY ==
--- NOTE | ~2024-06-10 | CT_ITS ---
EXAMINATION: CT HEAD WITHOUT CONTRAST CLINICAL INFORMATION: Unwitnessed fall COMPARISON: CT head from 05/11/2023 TECHNIQUE: Contiguous axial imaging was performed from the skull base to vertex without intravenous administration of contrast. This CT examination was performed using dose optimization techniques as appropriate, variously including the following: *Automated exposure control *Adjustment of mA and/or kV according to patient size (this includes techniques or standardized protocols for targeted exams where dose is matched to indication/reason for exam; i.e. extremities or head) *Use of iterative reconstruction technique DLP: 576.22 mGy-cm FINDINGS: There is no evidence of acute intracranial hemorrhage or territorial infarction. Chronic white matter small vessel ischemic changes. Cerebral atrophy. No abnormal mass effect or midline shift is seen. Bland to white matter differentiation is well preserved. No extra-axial fluid collections are identified. The ventricles are normal in size. There is no abnormal attenuation within the brain parenchyma. The osseous structures and soft tissues are normal. The mastoid air cells and visualized portions of the paranasal sinuses are well aerated. Atherosclerotic calcifications. CT/CT cervical spine wo IV con IMPRESSION: 1. No acute intracranial pathology. 2. Chronic white matter small vessel ischemic changes. EXAMINATION: Noncontrast CT scan of the cervical spine. INDICATION: Fall COMPARISON: CT cervical spine from 05/11/2023 TECHNIQUE: Helical, multidetector axial images were obtained from the occiput to the upper thorax. Coronal and sagittal reformats of the cervical spine were provided for interpretation. DLP: 249.93 mGy-cm FINDINGS: No acute fractures or dislocations of the cervical spine are seen. Levocurvature of the cervical spine. Straightening of the normal cervical curvature. Grade 1 anterolisthesis of C2 on C3 C5 on C6, C6 on C7 and T1 on T2. Osseous fusion of C3 and C4. Multilevel degenerative changes. Anatomic alignment and positioning of the vertebral bodies and posterior elements is noted. The atlantoaxial joint and craniovertebral articulations are normal without evidence of subluxation. There is no prevertebral soft tissue swelling. The visualized portions of the lung apices and mediastinum are unremarkable. IMPRESSION: 1. No acute visible fracture or dislocation. 2. Levocurvature of the cervical spine. 3. Straightening of the normal cervical curvature. 4. Grade 1 anterolisthesis of C2 on C3, C5 on C6, C6 on C7, and T1 on T2. 5. Osseous fusion of C3 and C4. Multilevel degenerative changes. Electronically signed by: Jolynn Bacon MD 06/10/2024 02:28 PM EDT
[2024-06-10 11:52] VITALS: BP 130/80; BP 156/60; PULSE 52; PULSE 53; RESP 18; TEMP 36.7; O2SAT 95; O2SAT 96; BMI 21.4
[2024-06-10 12:53] LABS: Appearance Urine Cloudy; Color Urine Yellow; Glucose Urine UA Negative (Negative); Leukocyte Esterase Urine Moderate (2+) (Negative); Nitrite Urine Positive (Negative); PH 6.5 (5.0-9.0); UMIC TRIGGER UACC YES; Urine Blood Negative (Negative); Urine Ketones Negative (Negative); Urine Protein Negative (Neg-Trace)
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
[2024-06-10 12:59] LABS: COVID-19 Test Negative (Negative); IDNOW Serial# 08D9AD1C
[2024-06-10 13:02] LABS: Bacteria Urine 4+ (None Seen); Hyaline Casts Urine 0-2 /LPF (0-2); RBC Urine 0-2 /HPF (0-2); UACC Culture Trigger YES; WBC Urine >50 /HPF (0-5)
[2024-06-10] MEDS: cefuroxime axetiL 250 MG TABLET PO (13:46)
--- NOTE | 2024-06-10 13:48 | PC.NURSE ---
has been on and off bedpan since arrival. tolerated CT
[2024-06-10 14:48] VITALS: BP 179/85; PULSE 57; RESP 14; TEMP 36.9; O2SAT 96
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
[2024-06-10 16:06] VITALS: BP 179/85; PULSE 57; RESP 14; TEMP 36.9; O2SAT 96
--- NOTE | 2024-06-10 16:10 | PC.NURSE ---
Rn to Aid report with Marcia weiner [facility].
== END 2024-06-10 16:10 | disposition skilled nursing facility (03) ==
PROVIDERS: Physician Assistant; Emergency Provider Emergency Medicine; PCP Internal Medicine Medical Oncology
DX: S39.92XA Unspecified injury of lower back, initial encounter (principal); S09.90XA Unspecified injury of head, initial encounter; N39.0 Urinary tract infection, site not specified; I10 Essential (primary) hypertension; M54.2 Cervicalgia; R51.9 Headache, unspecified; F03.90 Unspecified dementia, unspecified severity, without behavioral disturbance, psychotic disturbance, mood disturbance, and anxiety; W19.XXXA Unspecified fall, initial encounter; Y93.89 Activity, other specified; Y92.098 Other place in other non-institutional residence as the place of occurrence of the external cause; Y99.8 Other external cause status; Z79.899 Other long term (current) drug therapy; Z11.52 Encounter for screening for COVID-19
CPT/HCPCS: 70450; 72125; 81001; 87086; 87088; 87186; 87635; 99283

== ENCOUNTER 2025-06-17 11:21 | Emergency (ER) | payer MEDICARE, MEDICAID, SELFPAY ==
--- NOTE | ~2025-06-17 | XR_ITS ---
EXAMINATION: XR CHEST CLINICAL INFORMATION: fall COMPARISON: 10/17/2023. TECHNIQUE: Frontal view of the chest was obtained. FINDINGS: There is a large retrocardiac mass again demonstrated, consistent with known large hiatus hernia/intrathoracic stomach. There is mild cardiac enlargement. The style and hilar contours otherwise appear normal. Aortic mural calcification. The lungs appear clear bilaterally. No pneumothorax or effusion. No acute osseous or soft tissue abnormality. End-stage arthritic changes bilateral shoulder joints. Degenerative changes throughout the spine. XR/XR chest 1V IMPRESSION: 1. Large hiatus hernia/intrathoracic stomach. 2. Mild cardiac enlargement. 3. No active pulmonary disease. 4. 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 Electronically signed by: Heath Reynoso MD 06/17/2025 02:14 PM EDT
--- NOTE | ~2025-06-17 | XR_ITS ---
EXAMINATION: XR HIP 1 VIEW LEFT WITH PELVIS HISTORY: pain, injury COMPARISON: Comparison is made with the prior examination of the pelvis dated 05/11/2023. FINDINGS: A single AP view of the pelvis and two views of the left hip are submitted. The bones are osteopenic. There is no fracture or dislocation. There is moderate narrowing of both hip joints. There are vascular calcifications. There is degenerative disc disease of the lower lumbar spine. XR/XR hip LT w PEL1V IMPRESSION: Osteopenia. Moderate narrowing of both hips. Electronically signed by: Eladio Delgado MD 06/17/2025 02:13 PM EDT
--- NOTE | ~2025-06-17 | CT_ITS ---
EXAMINATION: CT CERVICAL SPINE WITHOUT CONTRAST CLINICAL INFORMATION: Fall, pain, altered mental status. COMPARISON: Several priors, most recently 06/10/2024. TECHNIQUE: Spiral CT imaging of the cervical spine performed in axial plane without contrast. Multiplanar reformatted images were constructed from the axial data set. This CT examination was performed using dose optimization techniques as appropriate, variously including the following: *Automated exposure control *Adjustment of mA and/or kV according to patient size (this includes techniques or standardized protocols for targeted exams where dose is matched to indication/reason for exam; i.e. extremities or head) *Use of iterative reconstruction technique FINDINGS: CORONAL ALIGNMENT: -There is a mild to moderate levoconvex scoliosis, apex at C4. SAGITTAL ALIGNMENT: -There is mild straightening of the normal lordosis. There is no evidence of acute traumatic subluxation. -There is a chronic degenerative 3 mm anterolisthesis of C4 on C5, and chronic 4 mm anterolisthesis of C7 on T1. -There is a 2 mm degenerative anterolisthesis of C2 on C3. C1-C2 AND CRANIOCERVICAL JUNCTION: -Intact and grossly aligned. There are severe, end-stage degenerative changes of the atlantoaxial joint with cystic changes in C2 and the dens. There is dorsal pannus formation with narrowing of the craniocervical junction. VERTEBRAL BODIES AND FACETS: -There is no definite fracture, or acute compression deformity. No suspicious bone lesion. -There is bony fusion of C3-4. -No evidence of traumatic subluxation. -Facets are aligned. The left C3-4 facets are fused. There are multilevel right greater than left hypertrophic degenerative facet changes. DISCS: -Severe disc degeneration throughout the cervical spine. CENTRAL CANAL: -No evidence of high-grade central canal narrowing or large disc herniation allowing for modality limitations. There is multilevel moderate stenosis present. PREVERTEBRAL AND PARAVERTEBRAL SOFT TISSUES: -There is no prevertebral or paravertebral soft tissue edema, abnormal fluid collection, or swelling. -The thyroid gland is diminutive. -There is a retropharyngeal course of the right ICA. There is moderate right and mild left carotid bulb calcification. LUNG APICES: -Grossly clear without pneumothorax. There is biapical pleural parenchymal scarring. CT/CT cervical spine wo IV con IMPRESSION: 1. No CT evidence of acute cervical spine fracture or injury. 2. Advanced cervical spondylosis, and mild to moderate levoconvex scoliosis, similar to prior exams. Electronically signed by: Heath Reynoso MD 06/17/2025 02:25 PM EDT
--- NOTE | ~2025-06-17 | CT_ITS ---
EXAMINATION: CT HEAD WITHOUT CONTRAST CLINICAL INFORMATION: Fall, pain, altered mental status. COMPARISON: Numerous priors, most recently 06/10/2024. TECHNIQUE: Contiguous axial imaging was performed from the skull base to vertex without intravenous administration of contrast. This CT examination was performed using dose optimization techniques as appropriate, variously including the following: *Automated exposure control *Adjustment of mA and/or kV according to patient size (this includes techniques or standardized protocols for targeted exams where dose is matched to indication/reason for exam; i.e. extremities or head) *Use of iterative reconstruction technique FINDINGS: There is moderate motion degradation, limiting sensitivity of the exam. There is no evidence of intracranial hemorrhage or extra-axial fluid collection. There is no mass effect, or edema. No CT evidence of acute territorial infarct. Ventricles, sulci, and cisterns are diffusely prominent in keeping with age related cerebral volume loss. There is severe cerebellar atrophy, unchanged from priors. No hydrocephalus. No midline shift. Negative hyperdense MCA sign. Negative insular ribbon sign. Patchy periventricular and deep white matter hypoattenuation is consistent with moderate small vessel ischemic changes. There are numerous old lacunar type infarction in the bilateral gangliocapsular regions. Atheromatous calcification of the bilateral carotid siphons and V4 segments vertebral arteries bilaterally. The orbits are largely obscured by motion artifact. No extracranial soft tissue abnormalities. The paranasal sinuses, mastoid air cells, and tympanic cavities are normally aerated. No suspicious bony abnormalities. There are no acute fractures evident within the confines of motion. CT/CT head/brain wo IV con IMPRESSION: 1. Significantly motion degraded exam. 2. No acute intracranial abnormality. No fracture evident. 3. Stable chronic changes and severe cerebellar atrophy. Electronically signed by: Heath Reynoso MD 06/17/2025 02:32 PM EDT
[2025-06-17 11:30] VITALS: BP 114/62; PULSE 112; O2SAT 95
[2025-06-17 11:36] VITALS: BP 182/79; PULSE 60; RESP 16; TEMP 36.9; O2SAT 96; BMI 25.5
--- NOTE | 2025-06-17 11:42 | ED_ITS ---
HPI - General Adult General Chief complaint: Fall Stated complaint: FALL LAST WEEK, R HIP PAIN,FROM [facility] PER EMS Time Seen by Provider: 06/17/25 11:42 Source: patient and EMS Mode of arrival: EMS Limitations: altered mental status (patient is demented at baseline) History of Present Illness ED Provider: Nayeli Schmidt PA-C HPI narrative: Patient is an 89 year old assigned female at with a history of dementia, HTN, psoriasis, and hypothyroidism presenting to the emergency department today with right hip pain after a fall and worsening confusion. Assisted living staff states that the patient fell 4 days ago and was complaining of right hip pain but was not evaluated at the time. They stated that the patient has since been more confused and complaining of hip pain. Patient denies any complaints at this time. Related Data Home Medications ?Medication ?Instructions ?Recorded ?Confirmed atenolol 25 mg tablet 25 mg PO DAILY 09/23/2305/28 acetaminophen 325 mg tablet 650 mg PO BID 06/17/25 ammonium lactate 5 % lotion 1 appl topical BID PRN Dry Skin 06/17/25 06/17/25 (Lac-Hydrin Five) cholecalciferol (vitamin D3) 25 25 mcg PO DAILY 06/17/25 mcg (1,000 unit) tablet docusate sodium 100 mg tablet 100 mg PO BEDTIME 06/17/25 levothyroxine 50 mcg tablet 50 mcg PO DAILY@0600 06/1706/17/25 rosuvastatin 5 mg tablet 5 mg PO DAILY 06/17/2506/17 Previous Rx's ?Medication ?Instructions ?Recorded cefuroxime axetil 250 mg tablet 500 mg (2 x 250 mg) PO BID 7 days 06/19/25 #28 tabs Allergies Allergy/AdvReac Type Severity Reaction Status Date / Time Sulfa (Sulfonamide Allergy Mild NAUSEA & Verified 06/17/25 11:39 Antibiotics) VOMITING Review of Systems 2 Constitutional: Constitutional: Reports as per HPI Eyes: Eyes: Reports as per HPI ENT: Reports as per HPI Cardiovascular: Cardiovascular: Reports as per HPI Respiratory: Respiratory: Reports as per HPI Gastrointestinal: Gastrointestinal: Reports as per HPI Genitourinary: Genitourinary: Reports as per HPI Musculoskeletal: Musculoskeletal: Reports as per HPI Integumentary/Breasts: Skin/Breast: Reports as per HPI Neurologic: Reports as per HPI Psychiatric: Psychiatric: Reports as per HPI Endocrine: Endocrine: Reports as per HPI Hematologic/Lymphatic: Hematologic/Lymphatic: Reports as per HPI Allergic/Immunologic: Allergic/Immunologic: Reports as per HPI [facility] Past Medical History Attestation statement: The following information was validated with the patient. (all information validated with her daughter in law) Source: old records reviewed, obtained from family (patient's daughter in law provided additional history and confirmed the history provided by the patient. ) and nursing notes reviewed Medical History Dementia Psoriasis Hypothyroidism Hypertension Social History Social History Household Members: None Housing: Apartment Do you presently have visiting nurse or other home services: Yes Unable to assess alcohol history related to: Unable to respond Alcohol intake: never Patient Tobacco Use Status: Never used Tobacco Advance Directives Date on File: 09/23/23 service: No Current occupational status: retired Physical Exam ED Vital Signs: Vital Signs - 24 hr 06/18/25 09:41 06/18/25 13:33 Temperature 97.6 F 97.6 F Pulse Rate 64 64 Respiratory Rate 18 18 Blood Pressure 133/53 L 133/53 L Pulse Oximetry 93 93 Oxygen Delivery Method Room Air Room Air BMI result Body Mass Index 25.5 Const General: cooperative, no acute distress, alert and awake Nutritional Appearance: well nourished Orientation/consciousness: oriented to person and oriented to place HENMT Head: Yes normal to inspection and Yes atraumatic Ears: hearing grossly normal bilaterally and external ears normal General nose exam: Normal external nose present, no nasal discharge noted and no epistaxis Face and sinus: Yes normal facial exam, No abrasion and No laceration Mouth: Normal oral and palatal mucosa present, no drooling and no muffled voice Eyes General: appearance normal, both eyes and all related structures Periorbital: periorbital findings normal Eyelids: Yes eyelids normal Conjunctivae: conjunctivae normal Pupils: Equal, round and reactive pupils present EOM: EOMs intact bilaterally Neck Neck: Yes normal visual inspection and Yes full ROM Resp Effort & Inspection: normal respiratory effort and able to speak in complete sentences Neuro Other: intermittently confused per her baseline General: oriented to person, oriented to place, moves all extremities and CN's II-XI intact bilaterally Cranial nerves: Yes Equal, round and reactive pupils present Extrem General: Yes normal to inspection, Yes full ROM and Yes capillary refill normal Psych Appearance: grossly normal Affect: normal affect Medications Administered Discontinued Medications Generic Name Dose Route Start Last Admin Trade Name Ryan PRN Reason Stop Dose Admin Acetaminophen 650 mg 06/18/25 09:00 06/18/25 07:44 Acetaminophen 325 Mg Tablet PO 650 mg BID KATARINA Administration Atenolol 25 mg 06/18/25 09:00 06/18/25 07:45 Atenolol 25 Mg Tablet PO 25 mg DAILY KATARINA Administration Protocol Atorvastatin Calcium 20 mg 06/18/25 09:00 06/18/25 07:44 Atorvastatin Calcium 20 Mg Tablet PO 20 mg DAILY KATARINA Administration Ceftriaxone Sodium 1 gm 06/17/25 15:03 06/17/25 15:31 Ceftriaxone Sodium 1 Gm Vial IVPUSH 06/17/25 15:04 1 gm ONCE ONE Administration Cefuroxime Axetil 500 mg 06/17/25 21:00 06/18/25 07:44 Cefuroxime Axetil 500 Mg Tablet PO 06/24/25 20:59 500 mg BID KATARINA Administration Levothyroxine Sodium 50 mcg 06/18/25 07:00 06/18/25 07:45 Levothyroxine Sodium 50 Mcg Tablet PO 50 mcg DAILY@0600 KATARINA Administration Morphine Sulfate 4 mg 06/17/25 12:40 06/17/25 12:45 Morphine Sulfate 4 Mg/Ml Cartridge IVPUSH 06/17/25 12:41 4 mg ONCE ONE Administration Protocol Morphine Sulfate 4 mg 06/17/25 14:54 06/17/25 15:31 Morphine Sulfate 4 Mg/Ml Cartridge IVPUSH 06/17/25 14:55 4 mg ONCE ONE Administration Protocol Ondansetron HCl 4 mg 06/17/25 12:40 06/17/25 12:45 Ondansetron Hcl 4 Mg/2 Ml Vial IVPUSH 06/17/25 12:41 4 mg ONCE ONE Administration Vitamin D 25 mcg 06/18/25 09:00 06/18/25 07:45 Cholecalciferol (Vitamin D3) 25 Mcg Tablet PO 25 mcg DAILY KATARINA Administration Medical Decision Making Medical Decision Making MDM Narrative: Patient is an 89 year old assigned female at with a history of dementia, HTN, psoriasis, and hypothyroidism presenting to the emergency department today with right hip pain after a fall and worsening confusion. Patient's physical exam was as noted in the physical exam portion of this note and consistent with her baseline (per the patient's daughter in law). Patient's blood work was unremarkable. Patient's urine showed a possible UTI. Patient's previous culture grew E.Coli. Patient covered with ceftriaxone IV and PO Cefuroxime ordered. Patient prescribed PO Cefuroxime for UTI treatment upon discharge. Patient's EKG was unremarkable. Patient's chest x-ray showed: Large hiatal hernia Mild cardiac enlargement End-stage arthropathy of the bilateral shoulders No acute pulmonary process Patient's left hip and pelvis x-ray showed: Osteopenia Moderate narrowing of both hip joints No evidence of acute fracture Patient's right hip x-ray showed: Evidence of CPPD arthropathy but no acute process Patient's CT head and c-spine showed no evidence of fracture / acute process. Patient's CT abd/pelvis showed: A large hiatal hernia that has progressed since 2020 and now contains the entire stomach, a short segment in the pancreatic head + neck, a large portion of the transverse colon + cecum (shifted to the anterior midline) Cholelithiasis Right inguinal hernia Left inguinal hernia Chronic compression fracture of T11 and L1 Punctate 1mm stone in the right kidney I explained my physical exam findings as well as all test results to the patient and the patient's daughter in law. I answered all questions asked by the patient and the patient's daughter in law. There is no EMERGENT intervention necessary for any of the above imaging findings. I confirmed with the patient's daughter in law that she is a full code. The patient was having difficulty ambulating and was evaluated by the physical therapy team who recommended short term rehab. Patient's daughter in law stated she would prefer not to visit with the patient in person because when they have in the past - it's caused an issue with the patient not wanting to return to the [facility] memory care unit she currently resides in. The patient's daughter in law agreed with the patient remaining in the department while receiving PO antibiotics and speaking with case management. Patient placed in observation at 1438 on 06/17/2025. Time: 08:15 Date: 06/18/25 Provider: ANA Lam Patient in physician observation for case management needs. No acute events reported overnight.? No current issues or complaints. VS stable. Awaiting case management disposition. Will continue to monitor. Time: 1300 Date: 06/18/25 Provider: ANA Lam Physician observation ended at 1300, patient discharged to [facility] via BLS at 1:00 p.m. today Patient has been cleared for discharge by the CARE team. Will follow up as an outpatient. /Patient to be admitted as inpatient to psychiatry./Patient to be placed at a rehab facility. Differential Diagnosis Differential Diagnoses: The differential diagnosis associated with the presentation includes UTI Weakness Fall Admission/Observation Consideration of admission/observation: Escalation of care including admission/observation considered Patient would have been admitted to the hospital had her work up had any findings where hospital admission was appropriate and her clinical presentation warranted hospital admission. Lab Data [facility] Lab Attestation statement: I reviewed the patient's lab results. My interpretation of these results are in the [facility] Rationale portion of this note. 06/17/25 12:30 06/17/25 12:30 Labs: Lab Results 06/17/25 06/17/25 06/17/25 Range/Units 12:30 14:40 16:20 WBC 5.3 (4.8-10.8) X10*3/uL RBC 3.69 L (4.20-5.50) X10*6/uL Hgb 12.5 (12.0-16.0) g/dl Hct 37.1 (37.0-47.0) % MCV 100.5 H (80.0-98.0) fL MCH 33.9 H (27.0-33.0) pg MCHC 33.7 (31.0-35.0) g/dl RDW 12.6 (11.0-16.0) % Plt Count 139 L (160-400) X10*3/uL MPV 8.3 L (9.4-12.3) fL Immature Gran % (Auto) 0.2 (0.0-0.4) % Neut % (Auto) 60.2 (45-73) % Lymph % (Auto) 23.6 (20-40) % [place] % (Auto) 13.3 H (2-11) % Eos % (Auto) 2.3 (0-4) % Baso % (Auto) 0.4 (0-2) % Lymph # (Auto) 1.3 (1.2-4.9) X10*3/uL [place] # (Auto) 0.7 (0.1-1.2) X10*3/uL Eos # (Auto) 0.1 (0.0-0.4) X10*3/uL Baso # (Auto) 0.0 (0.0-0.2) X10*3/uL Abs Immat Gran (auto) 0.01 (0.00-0.03) X10*3/uL Absolute Neuts (auto) 3.2 (2.0-8.3) x10*3/uL Absolute Nucleated RBC 0.000 (0.0-0.012) X10*3/uL Nucleated RBC % (auto) 0.0 (0.0-0.2) /100WBC PT 11.9 (10.9-12.4) SEC INR 1.0 (0.9-1.1) Sodium 140 (135-145) mmol/L Potassium 4.2 (3.3-5.1) mmol/L Chloride 104 (96-108) mmol/L Carbon Dioxide 31 H (22-29) mmol/L Anion Gap 9 L (12-20) BUN 17 H (9-16) mg/dL Creatinine 0.82 (0.5-1.4) mg/dL Estim Creat Clear Calc 38.2 Estimated GFR > 60 Random Glucose 112 (60-115) mg/dL Calcium 9.4 (8.4-10.2) mg/dL Magnesium 2.5 (1.6-2.6) mg/dL Total Bilirubin 0.8 (0.0-1.0) mg/dL AST 26 (5-31) U/L ALT 19 (0-31) U/L Alkaline Phosphatase 79 (39-117) U/L Troponin I High Sens 7.0 (<3.5-17.0) ng/L Total Protein 7.4 (6.5-8.0) g/dL Albumin 4.4 (3.5-5.0) g/dL Urine Color Yellow Urine Appearance Cloudy Urine pH 8.0 (5.0-9.0) Ur Specific [place] 1.010 (1.005-1.025) Urine Protein Negative (Neg-Trace) mg/dL Urine Glucose (UA) Negative (Negative) mg/dL Urine Ketones Negative (Negative) mg/dL Urine Blood Trace H (Negative) Urine Nitrite Positive H (Negative) Ur Leukocyte Esterase Large (3+) H (Negative) Urine RBC 6-10 H (0-2) /HPF Urine WBC 11-20 H (0-5) /HPF Ur Squamous Epith Cells 11-20 (0-2) /HPF Urine Bacteria 4+ (None Seen) Hyaline Casts 0-2 (0-2) /LPF Influenza Type A (PCR) NEGATIVE (Negative) Influenza Type B (PCR) NEGATIVE (Negative) RSV RNA Qual (PCR) NEGATIVE (Negative) SARS-CoV-2 RNA (RT-PCR) NEGATIVE (Negative) Independent Interpretation I performed an independent interpretation of an: EKG, Plain X-Ray and CT Scan Interpretation: My interpretation is in agreement with the radiologist's impression of these imaging studies. L Report Number: [id number]: Total DLP = 1046.47 mGy-cm Reason for Exam: pain, fall, AMS EXAMINATION: CT CERVICAL SPINE WITHOUT CONTRAST CLINICAL INFORMATION: Fall, pain, altered mental status. COMPARISON: Several priors, most recently 06/10/2024. TECHNIQUE: Spiral CT imaging of the cervical spine performed in axial plane without contrast. Multiplanar reformatted images were constructed from the axial data set. This CT examination was performed using dose optimization techniques as appropriate, variously including the following: *Automated exposure control *Adjustment of mA and/or kV according to patient size (this includes techniques or standardized protocols for targeted exams where dose is matched to indication/reason for exam; i.e. extremities or head) *Use of iterative reconstruction technique FINDINGS: CORONAL ALIGNMENT: -There is a mild to moderate levoconvex scoliosis, apex at C4. SAGITTAL ALIGNMENT: -There is mild straightening of the normal lordosis. There is no evidence of acute traumatic subluxation. -There is a chronic degenerative 3 mm anterolisthesis of C4 on C5, and chronic 4 mm anterolisthesis of C7 on T1. -There is a 2 mm degenerative anterolisthesis of C2 on C3. C1-C2 AND CRANIOCERVICAL JUNCTION: -Intact and grossly aligned. There are severe, end-stage degenerative changes of the atlantoaxial joint with cystic changes in C2 and the dens. There is dorsal pannus formation with narrowing of the craniocervical junction. VERTEBRAL BODIES AND FACETS: -There is no definite fracture, or acute compression deformity. No suspicious bone lesion. -There is bony fusion of C3-4. -No evidence of traumatic subluxation. -Facets are aligned. The left C3-4 facets are fused. There are multilevel right greater than left hypertrophic degenerative facet changes. DISCS: -Severe disc degeneration throughout the cervical spine. CENTRAL CANAL: -No evidence of high-grade central canal narrowing or large disc herniation allowing for modality limitations. There is multilevel moderate stenosis present. PREVERTEBRAL AND PARAVERTEBRAL SOFT TISSUES: -There is no prevertebral or paravertebral soft tissue edema, abnormal fluid collection, or swelling. -The thyroid gland is diminutive. -There is a retropharyngeal course of the right ICA. There is moderate right and mild left carotid bulb calcification. LUNG APICES: -Grossly clear without pneumothorax. There is biapical pleural parenchymal scarring. CT/CT cervical spine wo IV con IMPRESSION: 1. No CT evidence of acute cervical spine fracture or injury. 2. Advanced cervical spondylosis, and mild to moderate levoconvex scoliosis, similar to prior exams. Electronically signed by: Heath Reynoso MD 06/17/2025 02:25 PM EDT RP Dictated By: Heath Reynoso MD Signed By: Electronically signed by Heath Reynoso MD 06/17/25 1425 Report Number: [id number]: Total DLP = 0.00 mGy-cm Reason for Exam: pain, fall, AMS EXAMINATION: CT HEAD WITHOUT CONTRAST CLINICAL INFORMATION: Fall, pain, altered mental status. COMPARISON: Numerous priors, most recently 06/10/2024. TECHNIQUE: Contiguous axial imaging was performed from the skull base to vertex without intravenous administration of contrast. This CT examination was performed using dose optimization techniques as appropriate, variously including the following: *Automated exposure control *Adjustment of mA and/or kV according to patient size (this includes techniques or standardized protocols for targeted exams where dose is matched to indication/reason for exam; i.e. extremities or head) *Use of iterative reconstruction technique FINDINGS: There is moderate motion degradation, limiting sensitivity of the exam. There is no evidence of intracranial hemorrhage or extra-axial fluid collection. There is no mass effect, or edema. No CT evidence of acute territorial infarct. Ventricles, sulci, and cisterns are diffusely prominent in keeping with age related cerebral volume loss. There is severe cerebellar atrophy, unchanged from priors. No hydrocephalus. No midline shift. Negative hyperdense MCA sign. Negative insular ribbon sign. Patchy periventricular and deep white matter hypoattenuation is consistent with moderate small vessel ischemic changes. There are numerous old lacunar type infarction in the bilateral gangliocapsular regions. Atheromatous calcification of the bilateral carotid siphons and V4 segments vertebral arteries bilaterally. The orbits are largely obscured by motion artifact. No extracranial soft tissue abnormalities. The paranasal sinuses, mastoid air cells, and tympanic cavities are normally aerated. No suspicious bony abnormalities. There are no acute fractures evident within the confines of motion. CT/CT head/brain wo IV con IMPRESSION: 1. Significantly motion degraded exam. 2. No acute intracranial abnormality. No fracture evident. 3. Stable chronic changes and severe cerebellar atrophy. Electronically signed by: Heath Reynoso MD 06/17/2025 02:32 PM EDT Dictated By: Heath Reynoso MD Signed By: Electronically signed by Heath Reynoso MD 06/17/25 1432 Reason for Exam: pain, injury EXAMINATION: XR HIP 1 VIEW LEFT WITH PELVIS HISTORY: pain, injury COMPARISON: Comparison is made with the prior examination of the pelvis dated 05/11/2023. FINDINGS: A single AP view of the pelvis and two views of the left hip are submitted. The bones are osteopenic. There is no fracture or dislocation. There is moderate narrowing of both hip joints. There are vascular calcifications. There is degenerative disc disease of the lower lumbar spine. XR/XR hip LT w PEL1V IMPRESSION: Osteopenia. Moderate narrowing of both hips. Electronically signed by: Eladio Delgado MD 06/17/2025 02:13 PM EDT Dictated By: Eladio Delgado MD Signed By: Electronically signed by Eladio Delgado MD 06/17/25 1413 Reason for Exam: fall EXAMINATION: XR CHEST CLINICAL INFORMATION: fall COMPARISON: 10/17/2023. TECHNIQUE: Frontal view of the chest was obtained. FINDINGS: There is a large retrocardiac mass again demonstrated, consistent with known large hiatus hernia/intrathoracic stomach. There is mild cardiac enlargement. The style and hilar contours otherwise appear normal. Aortic mural calcification. The lungs appear clear bilaterally. No pneumothorax or effusion. No acute osseous or soft tissue abnormality. End-stage arthritic changes bilateral shoulder joints. Degenerative changes throughout the spine. XR/XR chest 1V IMPRESSION: 1. Large hiatus hernia/intrathoracic stomach. 2. Mild cardiac enlargement. 3. No active pulmonary disease. 4. 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 Electronically signed by: Heath Reynoso MD 06/17/2025 02:14 PM EDT Dictated By: Heath Reynoso MD Signed By: Electronically signed by Heath Reynoso MD 06/17/25 1414 Reason for Exam: pain, injury EXAMINATION: XR HIP, RIGHT CLINICAL INFORMATION: pain, injury COMPARISON: None available. TECHNIQUE: Two views of the right hip. FINDINGS: There is moderate axial joint space narrowing. There is chondrocalcinosis along the femoral head and acetabular labrum. There is mild sclerosis and degenerative cystic change in the superior joint. Marginal osteophytes are present involving femoral head and acetabulum. Moderate atherosclerotic calcification is visible in the femoral artery. No acute deformity or fracture line is evident. XR/XR hip RT min 2V IMPRESSION: No acute abnormality. Moderate degenerative changes in the right hip joint consistent with CPPD arthropathy. Electronically signed by: Walker Bucio MD 06/17/2025 03:24 PM EDT RP Dictated By: Walker Bucio MD Signed By: Electronically signed by Walker Bucio MD 06/17/25 1524 Reason for Exam: pain EXAMINATION: CT ABDOMEN AND PELVIS WITHOUT CONTRAST CLINICAL INFORMATION: Pain COMPARISON: May 12, 2022 TECHNIQUE: Multidetector volumetric imaging was performed from the superior aspect of the liver through the pubic symphysis. Sagittal and coronal reformatted images were obtained on the technologist's workstation. This CT examination was performed using dose optimization techniques as appropriate, variously including the following: *Automated exposure control *Adjustment of mA and/or kV according to patient size (this includes techniques or standardized protocols for targeted exams where dose is matched to indication/reason for exam; i.e. extremities or head) *Use of iterative reconstruction technique FINDINGS: LUNG BASES: The visualized lung bases are unremarkable. LIVER, GALLBLADDER, AND BILIARY TREE: The liver is normal in size, shape, and attenuation. No focal hepatic lesion or biliary ductal dilatation is present. Ossified stones layer in the gallbladder, similar with the prior. PANCREAS: Unremarkable. Reference the GI tract section. SPLEEN: Unremarkable. ADRENAL GLANDS: Unremarkable. KIDNEYS AND URETERS: There is multifocal cortical scarring involving the left kidney. The right kidney is unremarkable. There is a punctate 1 mm stone in the mid right kidney. BLADDER: Unremarkable. GASTROINTESTINAL TRACT: Again seen is a large hiatal hernia containing the entire stomach and a short segment of the duodenum. It also contains head and neck of pancreas which was evident on the prior examination. New since prior, now the herniation contains a large segment of the transverse colon shifting the ileocecal junction to the ventral midline of the abdomen.Innumerable pseudodiverticula are present in the descending and sigmoid colon. There is no associated fat stranding or wall thickening. ABDOMINAL WALL: Right inguinal hernia contains fat. There is likely a small left inguinal hernia also containing fat versus a spermatic cord lipoma. LYMPH NODES: Normal. VASCULAR: The aorta is tortuous. Moderate atherosclerotic calcifications are present PELVIC VISCERA: Unremarkable. OSSEOUS STRUCTURES: Again noted are advanced degenerative changes in the spine. Inferior endplate compression fracture of T11 is stable to slightly increased since the prior. There is a chronic moderate superior endplate compression fracture of L1. There are moderate degenerative changes in both hip joints. CT/CT abdomen pelvis wo IV con IMPRESSION: There is a large hiatal hernia that has progressed since prior examination. It contains the entire stomach, short segment in the pancreatic head and neck. New since the prior, it now contains a large portion of the transverse colon and cecum has been shifted to the anterior midline. The entire hernia is not covered by this CT of abdomen and pelvis because it is shifted high into the chest. Cholelithiasis. Descending and sigmoid diverticulosis without sign of infection. Right inguinal hernia contains fat. There is a small left inguinal hernia versus spermatic cord lipoma. Chronic mild inferior endplate compression fracture of T11 is stable to slightly increased. Moderate superior endplate compression fracture of L1 is stable. Extensive degenerative changes in the spine and both hip joints is again noted. There is a punctate 1 mm nonobstructing stone in the mid right kidney. Chronic renal cortical scarring is present left kidney. Fleischner guidelines were followed. Electronically signed by: Walker Bucio MD 06/17/2025 04:29 PM EDT Dictated By: Walker Bucio MD Signed By: Electronically signed by Walker Bucio MD 06/17/25 1629 I independently interpreted this EKG and am in agreement with the below findings: Vent. Rate: 61 BPM Atrial Rate: 61 BPM P-R Int: 260 ms QRS Dur: 80 ms QT Int: 432 ms P-R-T Axes: 55 -36 49 degrees QTcB Int: 434 ms Sinus rhythm with 1st degree A-V block Left axis deviation Septal infarct, age undetermined When compared with ECG of 17-Oct-2023 18:38, IA interval has increased DD/ 1217 Radiology Impression Discussion of test interpretation with radiology: I have reviewed the radiologist's reading. Independent Historian Clinical information obtained from an independent historian. History obtained from or confirmed by: EMS (EMS provided additional history and confirmed the history provided by the patient. ) and Other (Patient's daughter in law provided additional history and confirmed the history provided by the patient) Discharge Plan Discharge Clinical Impression: Fall, Hernia, hiatal, Acute UTI Patient Disposition: Xfer Inpatient Rehab Fac Transfer Details: [facility] Additional Instructions: Your CT scan showed an incidental finding of a worsening large hiatal hernia containing large portions of your intestines + pancreas + stomach. This needs to be evaluated by a thoracic surgeon on an outpatient basis. Please continue all at-home medications as directed. If any new or worsening symptoms occur including but not limited to severe chest pain, shortness of breath, please seek emergent care. Prescriptions: New cefuroxime axetil 250 mg tablet 500 mg PO BID 7 Days Qty: 28 0RF No Action atenolol 25 mg tablet 25 mg PO DAILY acetaminophen 325 mg Tablet 650 mg PO BID rosuvastatin 5 mg Tablet 5 mg PO DAILY levothyroxine 50 mcg Tablet 50 mcg PO DAILY@0600 cholecalciferol (vitamin D3) 25 mcg (1,000 unit) Tablet 25 mcg PO DAILY Lac-Hydrin Five 5 % Lotion 1 appl TOPICAL BID PRN (Reason: Dry Skin) docusate sodium 100 mg Tablet 100 mg PO BEDTIME Referrals: [facility] [Other] Eladio Kennedy MD [Physician, Internal Medicine] Interventions: ED Discharge Assessment Last Done: 06/18/25 13:33 Discharge Date/Time: 06/18/25 13:35 Print Language: Albanian
--- NOTE | 2025-06-17 11:52 | ECG_ITS ---
Test Reason : fall Blood Pressure : */* mmHG Vent. Rate : 61 BPM Atrial Rate : 61 BPM P-R Int : 260 ms QRS Dur : 80 ms QT Int : 432 ms P-R-T Axes : 55 -36 49 degrees QTcB Int : 434 ms Sinus rhythm with 1st degree A-V block Left axis deviation Septal infarct , age undetermined Abnormal ECG When compared with ECG of 17-Oct-2023 18:38, NC interval has increased Referred By: Nayeli Schmidt Electronically Signed By: Zi Cummins
[2025-06-17 12:34] LABS: MANUAL DIFF FLAG NO
[2025-06-17 12:38] LABS: Hematocrit 37.1 % (37.0-47.0); Hemoglobin 12.5 g/dl (12.0-16.0); Imm Gran Abs Auto 0.01 X10*3/uL (0.00-0.03); Imm Gran Pct Auto 0.2 % (0.0-0.4); Lymphocytes Absolute Auto 1.3 X10*3/uL (1.2-4.9); Mean Corpuscular HGB Conc 33.7 g/dl (31.0-35.0); Mean Corpuscular Hemoglobin 33.9 pg (27.0-33.0); Mean Corpuscular Volume 100.5 fL (80.0-98.0); NRBC Abs Auto 0.000 X10*3/uL (0.0-0.012); NRBC Pct Auto 0.0 /100WBC (0.0-0.2); Platelet Count 139 X10*3/uL (160-400); Red Blood Count 3.69 X10*6/uL (4.20-5.50); White Blood Count 5.3 X10*3/uL (4.8-10.8)
[2025-06-17 12:41] LABS: INTERNATIONAL NORM RATIO 1.0 (0.9-1.1); Prothrombin Time 11.9 SEC (10.9-12.4)
[2025-06-17 12:53] LABS: Alanine Aminotransferase 19 U/L (0-31); Albumin Level 4.4 g/dL (3.5-5.0); Alkaline Phosphatase 79 U/L (39-117); Anion Gap 9 (12-20); Aspartate Amino Transferase 26 U/L (5-31); Blood Urea Nitrogen 17 mg/dL (9-16); Calcium 9.4 mg/dL (8.4-10.2); Carbon Dioxide 31 mmol/L (22-29); Chloride 104 mmol/L (96-108); Creatinine Clr Calc Pharmacy 38.2; Estimated Glomerular Filt Rate > 60; Magnesium 2.5 mg/dL (1.6-2.6); Potassium 4.2 mmol/L (3.3-5.1); Sodium 140 mmol/L (135-145); Total Protein 7.4 g/dL (6.5-8.0)
[2025-06-17 13:00] LABS: Troponin-I High Sensitivity 7.0 ng/L (<3.5-17.0)
[2025-06-17 14:49] LABS: Appearance Urine Cloudy; Glucose Urine UA Negative (Negative); PH 8.0 (5.0-9.0); Specific Gravity - Urine 1.010 (1.005-1.025); UMIC TRIGGER UACC YES
[2025-06-17 14:58] LABS: UACC Culture Trigger YES
--- NOTE | 2025-06-17 14:58 | PC.NURSE ---
pt alert, oriented x1. on initial presentation denying pain. righ and left hip palpated, no grimace, guarding, tenderness. upon trial stand and pivot to commode pt had significant pain. able to localize to right hip.
[2025-06-17 16:13] VITALS: BP 141/60; PULSE 58; RESP 14; TEMP 36.6; O2SAT 90
[2025-06-17 17:07] LABS: Resp Syncy Virus RNA Qual PCR NEGATIVE (Negative); SARS COV2 PCR INHOUSE NEGATIVE (Negative)
[2025-06-17 18:16] VITALS: BP 156/71; PULSE 79; RESP 16; TEMP 36.7; O2SAT 94
--- NOTE | 2025-06-17 18:31 | PC.NURSE ---
med rec - pt came in with list from facility. list is from 09/18. Called [facility] to confirm. They confirmed that levothyroxine is 50mcg daily, not 75mcg daily. they also said that blister pack in pt's room states Vit D3 is 1000u daily, not 1250mcg (50,000u weekly). they confirmed the rest of the medications as listed
--- NOTE | 2025-06-17 19:08 | PC.NURSE ---
this RN assumed care of this pt @1900, pt noted to be laying in stretcher, no apparent distress noted
--- NOTE | 2025-06-17 19:39 | PHA.MEDREC ---
Addendum entered by Ara Tellez RPh 06/17/25 19:53: Reviewed by [facility] Original Note: Pharmacy Consult ? Medication Reconciliation Pharmacy reviewed med rec done by nursing. Spoke with nurse and states she spoke with nursing at the [facility] who was able to confirm pt med list (list that the [facility] has is from 08/2024) and nurse added a note confirming what she spoke about with nurse. I updated Atenolol, nurse confirmed BID; list from the [facility] state QD, added Docusate 100mg 2 @bedtime and Lac-Hydrin five 5% lotion 1 bid prn; nurse didn't add those from list from facility.
--- NOTE | 2025-06-17 21:21 | MHC.CM.ED ---
CM attempted to meet with patient. Pt very confused. Not answering any questions. radio television technical director attempting to feed patient. Pt will not open her mouth. CM called and spoke with her son/HCP Arvind ([phone]). Pt lives at [facility] in their Memory unit. Pt normally ambulates with her walker. Feeds herself. Family states she gets very confused when she has a UTI. Pt is positive for UTI. PT is recommending STR. Pt has [facility] and medicaid. Will place local referrals. Son is agreeable. HCP on file. [facility] o file-full code. CM will follow for safe discharge planning.
[2025-06-17 22:08] VITALS: BP 164/81; PULSE 75; RESP 14; TEMP 36.6; O2SAT 94
--- NOTE | 2025-06-17 23:32 | MHC.EDTECH ---
pt cleaned, linens changed, pt repositioned. call kendall within reach.
--- NOTE | 2025-06-18 02:39 | MHC.EDTECH ---
pt cleaned, linens changed, pt repositioned. call kendall within reach.
[2025-06-18 06:05] VITALS: BP 139/57; PULSE 71; RESP 14; TEMP 36.9; O2SAT 95
--- NOTE | 2025-06-18 07:21 | PC.NURSE ---
bedside report received. pt is unable to state name, continues to lift left leg over bedrails. Pads in place for this reason. Pt repositioned repeatedly. Sitter is at arms length. Pt stated need to urinate and placed on bedpan but unable to urinate. Full assist for breakfast but spit food out.
[2025-06-18 07:45] VITALS: BP 139/57; PULSE 71
--- NOTE | 2025-06-18 07:51 | PC.NURSE ---
calmer, sitting on commode. took pills crushes with pudding.
--- NOTE | 2025-06-18 08:02 | PC.NURSE ---
RN to Rn acacia Gibson.
--- NOTE | 2025-06-18 08:14 | PC.NURSE ---
continues to rest quietly
--- NOTE | 2025-06-18 09:03 | MHC.CM.ED ---
Addendum entered by Hiral Means 06/18/25 10:29: Received notification that [facility] is not contracted with [facility] and is no longer able to offer a bed. Spoke with Alva. Alva accepts bed at [facility]. Insurance auth obtained by [place]. Jean RADER booked for 1pm. Patient, Alva, Renetta PRADHAN and Sol PEREZ aware. Med [facility] with chart. Original Note: Patient remains in ER overflow. [facility], [facility], [facility], [facility], [facility], [facility] are able to offer a bed. Attempted to speak with Arvind via telephone at [phone]. Arvind is unavailable at this time. Spoke with Alva about bed offers. Alva accepts bed at [facility]. [facility] made aware and asked to obtain ins auth. Continue to monitor for d/c needs.
--- NOTE | 2025-06-18 09:18 | PC.NURSE ---
Trini from [facility]. baseline is walker use, full assist for changing and ADLs. Baseline mentation is similar to what we're seeing. Unable to state full name.
--- NOTE | 2025-06-18 09:20 | PC.NURSE ---
call Trini at [facility] with Plan of care updates: [phone] x [phone]
[2025-06-18 09:41] VITALS: BP 133/53; PULSE 64; RESP 18; TEMP 36.4; O2SAT 93
--- NOTE | 2025-06-18 11:46 | PC.NURSE ---
Addendum entered by Vaishnavi Ying RN 06/18/25 11:47: Patient is an 89 year with a history of dementia, HTN, psoriasis, and hypothyroidism presenting to the emergency department today with right hip pain after a fall and worsening confusion. Patient's urine showed a possible UTI. Patient's previous culture grew E.Coli. Patient covered with ceftriaxone IV and PO Cefuroxime ordered. Patient's chest x-ray showed: Large hiatal hernia Mild cardiac enlargement End-stage arthropathy of the bilateral shoulders No acute pulmonary process Patient's left hip and pelvis x-ray showed: Osteopenia Moderate narrowing of both hip joints No evidence of acute fracture Patient's right hip x-ray showed: Evidence of CPPD arthropathy but no acute process. Patient alert and cooperative. Had periods of agitation over the shift production supervisor and needed a sitter. Lungs essentially clear bilat. Respirations even and non-labored. Abdomen large with positive bowel sounds. Positive pedal pulses with no edema noted. Original Note: Medical History Dementia Psoriasis Hypothyroidism Hypertension
--- NOTE | 2025-06-18 12:47 | PC.NURSE ---
Report given to Lucia PRADHAN from [facility].
[2025-06-18 13:33] VITALS: BP 133/53; PULSE 64; RESP 18; TEMP 36.4; O2SAT 93
== END 2025-06-18 13:35 ==
PROVIDERS: Physician Assistant Medical; Emergency Provider Emergency Medicine; PCP Internal Medicine Medical Oncology
DX: S79.911A Unspecified injury of right hip, initial encounter (principal); N39.0 Urinary tract infection, site not specified; M25.551 Pain in right hip; K44.9 Diaphragmatic hernia without obstruction or gangrene; R51.9 Headache, unspecified; M54.2 Cervicalgia; M25.552 Pain in left hip; R07.89 Other chest pain; R26.2 Difficulty in walking, not elsewhere classified; W01.10XA Fall on same level from slipping, tripping and stumbling with subsequent striking against unspecified object, initial encounter; Y93.01 Activity, walking, marching and hiking; Y92.099 Unspecified place in other non-institutional residence as the place of occurrence of the external cause; Y99.8 Other external cause status; Z79.899 Other long term (current) drug therapy; Z03.818 Encounter for observation for suspected exposure to other biological agents ruled out; Z91.81 History of falling
CPT/HCPCS: 36415; 70450; 71045; 72125; 73502; 74176; 80053; 81001; 83735; 84484; 85025; 85610; 87086; 87088; 87186; 87637; 93005; 96374; 96375; 96376; 97162; 99285; J0696; J2270; J2405

== ENCOUNTER → 2025-06-17 11:52 | Outpatient (BNV) | payer MEDICARE, MEDICAID, SELFPAY | PROVIDERS: PCP Internal Medicine Medical Oncology; Visit Provider Radiology Diagnostic Radiology | DX: K80.20 Calculus of gallbladder without cholecystitis without obstruction (principal); K44.9 Diaphragmatic hernia without obstruction or gangrene; K57.30 Diverticulosis of large intestine without perforation or abscess without bleeding; N20.0 Calculus of kidney; M54.2 Cervicalgia; M47.812 Spondylosis without myelopathy or radiculopathy, cervical region; M41.82 Other forms of scoliosis, cervical region; R51.9 Headache, unspecified; R41.82 Altered mental status, unspecified; G31.9 Degenerative disease of nervous system, unspecified; W19.XXXA Unspecified fall, initial encounter; M25.552 Pain in left hip; M85.852 Other specified disorders of bone density and structure, left thigh; M25.551 Pain in right hip; M16.11 Unilateral primary osteoarthritis, right hip; Z04.3 Encounter for examination and observation following other accident; M19.011 Primary osteoarthritis, right shoulder; M19.012 Primary osteoarthritis, left shoulder | CPT/HCPCS: 70450; 71045; 72125; 73502; 74176 ==

== ENCOUNTER → 2025-06-17 11:52 | Outpatient (BNV) | payer MEDICARE, MEDICAID, SELFPAY | PROVIDERS: Emergency Provider Emergency Medicine; PCP Internal Medicine Medical Oncology; Visit Provider Internal Medicine Cardiovascular Disease | DX: I44.0 Atrioventricular block, first degree (principal) | CPT/HCPCS: 93010 ==